=== PATIENT | male | born 1965 | race Hispanic/Latino ===

== ENCOUNTER 2020-11-06 11:30 | Emergency (ER) | payer BC, OTHER ==
[2020-11-06] MEDS ORDERED: CYCLOBENZAPRINE HCL 10 MG TABLET ONE (12:29)
== END 2020-11-06 13:03 | disposition home or self-care (01) ==
LOC: EDH 11:30
DX: M79.652 Pain in left thigh (principal); E11.9 Type 2 diabetes mellitus without complications; Z72.0 Tobacco use; X50.9XXA Other and unspecified overexertion or strenuous movements or postures, initial encounter; Y93.89 Activity, other specified; Y92.69 Other specified industrial and construction area as the place of occurrence of the external cause; Y99.8 Other external cause status

== ENCOUNTER 2021-07-14 08:36 | Emergency (ER) | payer BC ==
[~2021-07-14] VITALS: Ht 167.6 cm; Wt 87.5 kg
[2021-07-14] MEDS ORDERED: TRAM50TA4 PO (09:29)
[2021-07-14] MEDS ORDERED: IBUP-2070 PO (09:29)
[2021-07-14] MEDS ORDERED: HYDROCODONE/ACETAMINOPHEN 5/325 MG TAB PO SCH (09:30)
[2021-07-14] MEDS ORDERED: KETOROLAC 15MG/ML VIAL (15MG/ML) IM SCH (09:30)
[2021-07-14 10:43] VITALS: BP 134/74
== END 2021-07-14 10:43 | disposition home or self-care (01) ==
LOC: EDH 08:36
DX: S39.012A Strain of muscle, fascia and tendon of lower back, initial encounter (principal); E11.9 Type 2 diabetes mellitus without complications; E78.00 Pure hypercholesterolemia, unspecified; I10 Essential (primary) hypertension; Z79.1 Long term (current) use of non-steroidal anti-inflammatories (NSAID); X58.XXXA Exposure to other specified factors, initial encounter; Y93.89 Activity, other specified; Y92.89 Other specified places as the place of occurrence of the external cause; Y99.8 Other external cause status
CPT/HCPCS: 72100; 96372; 99284; J1885

== ENCOUNTER 2023-10-17 08:59 | Emergency (ER) | payer BC ==
[~2023-10-17] VITALS: Ht 167.6 cm; Wt 83.0 kg
[~2023-10-17 08:59] MED LIST: IBUP-2070 PO; TRAM50TA4 PO
[2023-10-17 09:00] VITALS: BP 175/82; PULSE 90; RESP 18; O2SAT 96
[2023-10-17] MEDS: TAMSULOSIN HCL 0.4 MG CAP.ER.24H PO ONE (11:01)
[2023-10-17 12:14] LABS: APPEARANCE,URINE CLEAR (CLEAR); BILIRUBIN,URINE NEGATIVE (NEGATIVE); COLOR,URINE YELLOW (YELLOW); GLUCOSE, URINE (UA) >=1000 mg/dL (NEGATIVE); KETONES,URINE 15 mg/dL (NEGATIVE); LEUKOCYTE ESTERASE ,URINE SMALL Leu/uL (NEGATIVE); NITRATE,URINE NEGATIVE (NEGATIVE); OCCULT BLOOD,URINE MODERATE (NEGATIVE); PH,URINE 5.5 (5.0-8.0); PROTEIN,URINE TRACE mg/dL (NEGATIVE)
[2023-10-17 12:15] LABS: ADD UA MICROSCOPIC YES
[2023-10-17 12:16] LABS: BACTERIA,URINE Few /HPF (None Seen); RBC,URINE 0-1 /HPF (0-1)
[2023-10-17 12:18] LABS: SQUAMOUS EPITHELIAL CELL,UR None Seen /HPF (0-2)
[2023-10-17] MEDS ORDERED: MACR100 PO (13:28)
[2023-10-17] MEDS ORDERED: TAMS-1 PO (13:28)
[2023-10-17] MEDS: NITROFURANTOIN MONOHYD/M-CRYST 100 MG CAPSULE PO ONE ×2 (13:30→13:31)
== END 2023-10-17 14:42 | disposition home or self-care (01) ==
LOC: EDH 08:59
DX: N30.90 Cystitis, unspecified without hematuria (principal); I10 Essential (primary) hypertension; E11.9 Type 2 diabetes mellitus without complications; E78.00 Pure hypercholesterolemia, unspecified; Z79.899 Other long term (current) drug therapy
CPT/HCPCS: 51702; 81001; 87088

== ENCOUNTER 2023-10-21 13:49 | Emergency (ER) | payer BC ==
[~2023-10-21] VITALS: Ht 167.6 cm; Wt 83.0 kg
[~2023-10-21 13:49] MED LIST changes: +MACR100 PO; +TAMS-1 PO
[2023-10-21 14:57] VITALS: BP 146/80; PULSE 99; RESP 20
== END 2023-10-21 16:57 | disposition home or self-care (01) ==
LOC: EDH 13:49
DX: E11.9 Type 2 diabetes mellitus without complications (principal); E78.00 Pure hypercholesterolemia, unspecified; I10 Essential (primary) hypertension
CPT/HCPCS: 99282

== ENCOUNTER 2023-10-22 01:41 | Emergency (ER) | payer BC ==
[~2023-10-22] VITALS: Ht 167.6 cm; Wt 82.6 kg
[2023-10-22 01:44] VITALS: BP 147/84; PULSE 115; RESP 20
[2023-10-23] MEDS ORDERED: CEFU500T67 PO (01:10)
== END 2023-10-22 02:38 | disposition home or self-care (01) ==
LOC: EDH 01:41
DX: R33.8 Other retention of urine (principal); E11.9 Type 2 diabetes mellitus without complications; E78.00 Pure hypercholesterolemia, unspecified; I10 Essential (primary) hypertension
CPT/HCPCS: 51702

== ENCOUNTER 2023-10-23 00:22 | Emergency (ER) | payer BC ==
[~2023-10-23] VITALS: Ht 167.6 cm; Wt 86.3 kg
[2023-10-23] MEDS ORDERED: CEFU500T67 PO (01:10)
[2023-10-23 01:46] VITALS: BP 145/78; PULSE 96; RESP 18; O2SAT 99
[2023-10-23] MEDS: CEFTRIAXONE 1G VIAL IVPB ONE (01:54)
[2023-10-26] MEDS ORDERED: LOSA50TA64 PO (20:02)
[2023-10-26] MEDS ORDERED: ROSU10TA28 PO (20:02)
[2023-10-26] MEDS ORDERED: TIZA-194 PO (20:02)
[2023-10-26] MEDS ORDERED: METF-444 PO (20:02)
[2023-10-26] MEDS ORDERED: GABA-529 PO (20:02)
[2023-10-26] MEDS ORDERED: TAMS-1 PO (20:02)
== END 2023-10-23 02:14 | disposition home or self-care (01) ==
LOC: EDH 00:22
DX: R31.9 Hematuria, unspecified (principal); N39.0 Urinary tract infection, site not specified; E11.9 Type 2 diabetes mellitus without complications; E78.00 Pure hypercholesterolemia, unspecified; I10 Essential (primary) hypertension; Z96.0 Presence of urogenital implants
CPT/HCPCS: 99284; 96365; J0696

== ENCOUNTER 2023-12-14 14:24 | Inpatient (IN) | payer BC ==
[~2023-12-14] VITALS: Ht 167.6 cm; Wt 76.7 kg
[~2023-12-14 14:24] MED LIST changes: +GABA-529 PO; -IBUP-2070 PO; +LOSA50TA64 PO; -MACR100 PO; +METF-444 PO; +ROSU10TA28 PO; +TIZA-194 PO; -TRAM50TA4 PO
[2023-12-14 15:23] LABS: HEMATOCRIT 25.5 % (42-54); MEAN CORPUSCULAR HEMOGLOBIN 27.7 pg (27.0-33.0); MEAN CORPUSCULAR HGB CONC 34.1 g/dL (32.0-36.0); MEAN CORPUSCULAR VOLUME 81.2 fL (79-99); PLATELET COUNT (AUTO) 459 K/uL (130-400); RED BLOOD CELL COUNT(AUTO) 3.14 MIL/uL (4.50-6.20); RED CELL DISTRIBUTION WIDTH 14.6 % (11.0-15.5); WHITE BLOOD COUNT (AUTO) 17.4 K/uL (4.8-10.8)
[2023-12-14 15:29] LABS: BASOPHILS # (AUTO) 0.06 K/uL (0.00-0.20); BASOPHILS % (AUTO) 0.3 % (0.0-5.0); EOSINOPHILS # (AUTO) 0.01 K/uL (0.00-0.70); EOSINOPHILS % (AUTO) 0.1 % (0.0-8.0); IMMATURE GRANULOCYTE ABSOLUTE 0.11 K/uL (0-1); LYMPHOCYTES # (AUTO) 1.3 K/uL (1.0-4.8); LYMPHOCYTES % (AUTO) 7.6 % (21.0-51.0); MONOCYTES # (AUTO) 0.9 K/uL (0.1-1.0); MONOCYTES % (AUTO) 4.8 % (3.0-13.0); NEUTROPHILS # (AUTO) 15.3 K/uL (1.8-7.7); NEUTROPHILS % (AUTO) 86.6 % (40.0-77.0)
[2023-12-14 15:36] LABS: CREATININE 1.3 mg/dL (0.5-1.3); POTASSIUM 3.2 mmol/L (3.5-5.1)
[2023-12-14] MEDS: 0.9%NACL 1000ML 1,000 ML IV ONE (15:49)
[2023-12-14] MEDS: MORPHINE 4 MG SYG IVP ONE (15:50)
[2023-12-14 16:04] LABS: WBC MORPHOLOGY CONSISTENT W/DIFF
[2023-12-14] MEDS: CEFTRIAXONE 2GM VIAL IVPB ONE (16:21)
[2023-12-14] MEDS: FAMOTIDINE 20MG VIAL IV ONE (16:21)
[2023-12-14] MEDS: KETOROLAC 30MG VIAL (30MG/ML) IVP ONE (16:21)
[2023-12-14] MEDS ORDERED: ONDANSETRON 4MG TABLET PO PRN (16:30)
[2023-12-14] MEDS ORDERED: VANCOMYCIN PROTOCOL PER PHARMACY IV SCH (16:30)
[2023-12-14] MEDS: CEFEPIME HCL 2 GM VIAL IVPB SCH (18:01)
[2023-12-14] MEDS: INSULIN HUMULIN R 100 UNIT/ML 3ML SQ SCH (18:21)
[2023-12-14] MEDS ORDERED: ROSU10TA28 PO (18:56)
[2023-12-14] MEDS ORDERED: TAMS-1 PO (18:56)
[2023-12-14] MEDS ORDERED: TIZA-194 PO (18:56)
[2023-12-14] MEDS ORDERED: DUTA0.5C37 PO (18:56)
[2023-12-14] MEDS ORDERED: LOSA50TA64 PO (18:56)
[2023-12-14] MEDS ORDERED: METF-446 PO (18:56)
[2023-12-14 20:15] VITALS: O2SAT 98
[2023-12-14 20:28] VITALS: BP 162/74; PULSE 99; RESP 18
[2023-12-14] MEDS: VANCOMYCIN 1.5 GM/250 ML BAG 250 ML IV SCH (23:00)
[2023-12-14] MEDS ORDERED: CEFEPIME HCL 1 GM VIAL IVPB SCH (23:00)
[2023-12-14] MEDS: ACETAMINOPHEN 325 MG TAB PO PRN (23:15)
[2023-12-15] VITALS (8 sets, daily range): BP systolic 133–159; BP diastolic 43–75; PULSE 85–104; RESP 16–18; O2SAT 98
[2023-12-15] MEDS: CEFEPIME HCL 1 GM VIAL IVPB SCH (03:13)
[2023-12-15 05:16] LABS: BASOPHILS # (AUTO) 0.06 K/uL (0.00-0.20); BASOPHILS % (AUTO) 0.3 % (0.0-5.0); EOSINOPHILS # (AUTO) 0.18 K/uL (0.00-0.70); HEMATOCRIT 23.4 % (42-54); LYMPHOCYTES # (AUTO) 2.1 K/uL (1.0-4.8); LYMPHOCYTES % (AUTO) 11.4 % (21.0-51.0); MEAN CORPUSCULAR HEMOGLOBIN 28.2 pg (27.0-33.0); MEAN CORPUSCULAR HGB CONC 34.2 g/dL (32.0-36.0); MEAN CORPUSCULAR VOLUME 82.4 fL (79-99); MONOCYTES # (AUTO) 1.3 K/uL (0.1-1.0); MONOCYTES % (AUTO) 7.2 % (3.0-13.0); NEUTROPHILS # (AUTO) 14.7 K/uL (1.8-7.7); NEUTROPHILS % (AUTO) 79.6 % (40.0-77.0); PLATELET COUNT (AUTO) 448 K/uL (130-400); RED BLOOD CELL COUNT(AUTO) 2.84 MIL/uL (4.50-6.20); RED CELL DISTRIBUTION WIDTH 14.7 % (11.0-15.5); WHITE BLOOD COUNT (AUTO) 18.5 K/uL (4.8-10.8)
[2023-12-15 05:32] LABS: ALBUMIN 1.7 g/dL (3.5-5.0); BILIRUBIN,TOTAL 0.5 mg/dL (0.2-1.0); CREATININE 1.2 mg/dL (0.5-1.3); MAGNESIUM 1.4 mg/dL (1.80-2.40); POTASSIUM 3.3 mmol/L (3.5-5.1); TOTAL PROTEIN, SERUM 6.4 g/dL (6.0-8.3)
[2023-12-15] MEDS ORDERED: POTASSIUM CHLORIDE 10% ELIXIR 20 MEQ/15 ML UDCUP PO PRN (08:30)
[2023-12-15] MEDS: KCL 20 MEQ ERTAB PO PRN (09:26)
[2023-12-15] MEDS: ENOXAPARIN SODIUM 30 MG/0.3 ML SQ SCH (09:27)
[2023-12-15] MEDS: MAGNESIUM 2GM PREMIX 50ML 50 ML IV PRN (09:28)
[2023-12-15] MEDS: MORPHINE 2 MG SYG IVP PRN (12:04)
[2023-12-15] MEDS: METFORMIN HCL 500 MG TABLET PO SCH (16:59)
[2023-12-15] MEDS ORDERED: NON-FORMULARY MEDICATION 1 EACH (Metformin HCl 1,000 MG) PO SCH (21:00)
[2023-12-15] MEDS: ATORVASTATIN 40 MG TABLET PO SCH (21:39)
[2023-12-15] MEDS: TIZANIDINE HCL 2 MG TABLET PO PRN (21:44)
[2023-12-16] VITALS (30 sets, daily range): BP systolic 101–152; BP diastolic 53–76; PULSE 69–93; RESP 16–18; O2SAT 98
[2023-12-16] MEDS: POTASSIUM CHLORIDE 20MEQ/100ML 100 ML IV PRN (08:50)
[2023-12-16] MEDS: TAMSULOSIN HCL 0.4 MG CAP.ER.24H PO SCH (09:00)
[2023-12-16] MEDS: LOSARTAN 50 MG TABLET PO SCH (09:00)
[2023-12-16] MEDS ORDERED: NON-FORMULARY MEDICATION 1 EACH (Rosuvastatin Calcium 10 MG) PO SCH (09:00)
[2023-12-16 13:00] LABS: HEMATOCRIT 25.2 % (42-54); MEAN CORPUSCULAR HEMOGLOBIN 27.6 pg (27.0-33.0); MEAN CORPUSCULAR HGB CONC 32.5 g/dL (32.0-36.0); MEAN CORPUSCULAR VOLUME 84.8 fL (79-99); PLATELET COUNT (AUTO) 446 K/uL (130-400); RED BLOOD CELL COUNT(AUTO) 2.97 MIL/uL (4.50-6.20); RED CELL DISTRIBUTION WIDTH 15.1 % (11.0-15.5); WHITE BLOOD COUNT (AUTO) 20.4 K/uL (4.8-10.8)
[2023-12-16 13:05] LABS: CREATININE 1.4 mg/dL (0.5-1.3); POTASSIUM 3.8 mmol/L (3.5-5.1)
[2023-12-16 13:51] LABS: BAND NEUTROPHILS % (MANUAL) 7 % (0-2); EOSINOPHILS % (MANUAL) 1 % (1-6); LYMPHOCYTES % (MANUAL) 8 % (22-44); MAN.DIFF COMMENT-IMPRESSION MANUAL DIFFERENTIAL; MONOCYTES % (MANUAL) 3 % (2-9); SEGMENTED NEUTROPHILS % 81 % (40-70); TOTAL CELLS COUNTED 100; WBC MORPHOLOGY HYPERSEGMENT NEUT 1+
[2023-12-16 13:52] LABS: PLATELET MORPHOLOGY COMMENT SLIGHT INCREASED
[2023-12-16] MEDS ORDERED: PHARMACY COMMUNICATION MISC SCH (17:30)
[2023-12-16] MEDS ORDERED: FENTANYL CITRATE PF 50 MCG/1 ML 2ML VIAL ONE ×2 (18:18→19:02)
[2023-12-16] MEDS ORDERED: MIDAZOLAM HCL 1 MG/ML 2ML VIAL ONE (18:18)
[2023-12-16] MEDS ORDERED: PROPOFOL 10 MG/ML 20ML VIAL IV ONE (18:18)
[2023-12-16] MEDS ORDERED: SUCCINYLCHOLINE CHLORIDE 20 MG/ML 10 ML VIAL ONE (18:25)
[2023-12-16] MEDS: MEPERIDINE-PF 25 MG/ML SYG ONE (19:26)
[2023-12-16] MEDS ORDERED: COMPOUND IV REFRIGERATED 1 EACH IVSOLN MISC PRN (23:00)
[2023-12-17] VITALS (11 sets, daily range): BP systolic 108–152; BP diastolic 53–74; PULSE 78–94; RESP 16–18; O2SAT 97
[2023-12-17 05:33] LABS: HEMATOCRIT 24.7 % (42-54); MEAN CORPUSCULAR HEMOGLOBIN 26.9 pg (27.0-33.0); MEAN CORPUSCULAR HGB CONC 31.6 g/dL (32.0-36.0); MEAN CORPUSCULAR VOLUME 85.2 fL (79-99); RED BLOOD CELL COUNT(AUTO) 2.9 MIL/uL (4.50-6.20); WHITE BLOOD COUNT (AUTO) 15.1 K/uL (4.8-10.8)
[2023-12-17 05:40] LABS: CREATININE 1.1 mg/dL (0.5-1.3); POTASSIUM 4.2 mmol/L (3.5-5.1)
[2023-12-17] MEDS: SODIUM HYPOCHLORITE 0.25% [HALF STRENGTH] 473 ML TOPICAL SOLN TP SCH (14:45)
[2023-12-18 03:00] VITALS: BP 145/77; PULSE 79; RESP 16
[2023-12-18 06:26] LABS: MAGNESIUM 1.8 mg/dL (1.80-2.40)
[2023-12-18 06:28] LABS: MEAN CORPUSCULAR HEMOGLOBIN 27.6 pg (27.0-33.0); MEAN CORPUSCULAR HGB CONC 32.4 g/dL (32.0-36.0); MEAN CORPUSCULAR VOLUME 85.3 fL (79-99); RED BLOOD CELL COUNT(AUTO) 2.93 MIL/uL (4.50-6.20); RED CELL DISTRIBUTION WIDTH 15.1 % (11.0-15.5); WHITE BLOOD COUNT (AUTO) 9.5 K/uL (4.8-10.8)
[2023-12-18 07:59] VITALS: BP 159/77; PULSE 83; RESP 14
[2023-12-18 08:00] VITALS: O2SAT 98
[2023-12-18 12:00] VITALS: BP 157/79; PULSE 82; RESP 16
[2023-12-18 16:00] VITALS: BP 148/79; PULSE 94; RESP 16
[2023-12-18 20:00] VITALS: BP 145/81; PULSE 101; RESP 18; O2SAT 98
[2023-12-19] VITALS (8 sets, daily range): BP systolic 140–163; BP diastolic 65–87; PULSE 77–94; RESP 16–20; O2SAT 98
[2023-12-19 05:11] LABS: HEMATOCRIT 23.6 % (42-54); MEAN CORPUSCULAR HEMOGLOBIN 26.9 pg (27.0-33.0); MEAN CORPUSCULAR HGB CONC 32.2 g/dL (32.0-36.0); MEAN CORPUSCULAR VOLUME 83.4 fL (79-99); RED BLOOD CELL COUNT(AUTO) 2.83 MIL/uL (4.50-6.20); RED CELL DISTRIBUTION WIDTH 14.9 % (11.0-15.5); WHITE BLOOD COUNT (AUTO) 8.8 K/uL (4.8-10.8)
[2023-12-19 05:18] LABS: MAGNESIUM 2.1 mg/dL (1.80-2.40); POTASSIUM 4.2 mmol/L (3.5-5.1)
[2023-12-19] MEDS: VANCOMYCIN 1.5 GM/250 ML BAG 250 ML IV SCH (20:58)
[2023-12-20] VITALS (7 sets, daily range): BP systolic 118–164; BP diastolic 62–89; PULSE 80–108; RESP 17–24; O2SAT 95–100
[2023-12-20 05:22] LABS: HEMATOCRIT 23.5 % (42-54); MEAN CORPUSCULAR HEMOGLOBIN 27.1 pg (27.0-33.0); MEAN CORPUSCULAR HGB CONC 32.3 g/dL (32.0-36.0); MEAN CORPUSCULAR VOLUME 83.9 fL (79-99); RED BLOOD CELL COUNT(AUTO) 2.8 MIL/uL (4.50-6.20); RED CELL DISTRIBUTION WIDTH 14.6 % (11.0-15.5); WHITE BLOOD COUNT (AUTO) 10.7 K/uL (4.8-10.8)
[2023-12-20 06:02] LABS: CREATININE 0.9 mg/dL (0.5-1.3); MAGNESIUM 1.7 mg/dL (1.80-2.40); POTASSIUM 3.8 mmol/L (3.5-5.1)
[2023-12-20] MEDS: MORPHINE 2 MG SYG IVP PRN (20:38)
[2023-12-21 04:00] VITALS: BP 148/77; PULSE 88; RESP 19
[2023-12-21 06:04] LABS: HEMATOCRIT 24.7 % (42-54); MEAN CORPUSCULAR HEMOGLOBIN 27.1 pg (27.0-33.0); MEAN CORPUSCULAR VOLUME 84.6 fL (79-99); RED BLOOD CELL COUNT(AUTO) 2.92 MIL/uL (4.50-6.20); WHITE BLOOD COUNT (AUTO) 8.2 K/uL (4.8-10.8)
[2023-12-21 06:34] LABS: MAGNESIUM 2.2 mg/dL (1.80-2.40)
[2023-12-21 08:00] VITALS: BP 157/76; PULSE 76; RESP 17
[2023-12-21 12:00] VITALS: BP 163/62; PULSE 106; RESP 18; O2SAT 99
[2023-12-21 16:00] VITALS: BP 148/73; PULSE 90; RESP 18
[2023-12-21 19:52] VITALS: O2SAT 100
[2023-12-21 20:00] VITALS: BP 157/77; PULSE 100; RESP 18
[2023-12-22] VITALS (30 sets, daily range): BP systolic 116–159; BP diastolic 60–80; PULSE 72–102; RESP 14–19; O2SAT 95–96
[2023-12-22 06:52] LABS: BASOPHILS # (AUTO) 0.04 K/uL (0.00-0.20); BASOPHILS % (AUTO) 0.4 % (0.0-5.0); EOSINOPHILS # (AUTO) 0.32 K/uL (0.00-0.70); HEMATOCRIT 25.3 % (42-54); IMMATURE GRANULOCYTE ABSOLUTE 0.05 K/uL (0-1); LYMPHOCYTES % (AUTO) 19.1 % (21.0-51.0); MEAN CORPUSCULAR HEMOGLOBIN 27.1 pg (27.0-33.0); MEAN CORPUSCULAR HGB CONC 32.8 g/dL (32.0-36.0); MEAN CORPUSCULAR VOLUME 82.7 fL (79-99); MONOCYTES # (AUTO) 0.9 K/uL (0.1-1.0); MONOCYTES % (AUTO) 8.5 % (3.0-13.0); NEUTROPHILS # (AUTO) 7.3 K/uL (1.8-7.7); NEUTROPHILS % (AUTO) 68.5 % (40.0-77.0); PLATELET COUNT (AUTO) 466 K/uL (130-400); RED BLOOD CELL COUNT(AUTO) 3.06 MIL/uL (4.50-6.20); RED CELL DISTRIBUTION WIDTH 15.3 % (11.0-15.5); WHITE BLOOD COUNT (AUTO) 10.7 K/uL (4.8-10.8)
[2023-12-22 07:07] LABS: MAGNESIUM 1.7 mg/dL (1.80-2.40); POTASSIUM 3.9 mmol/L (3.5-5.1)
[2023-12-22] MEDS ORDERED: PROPOFOL 10 MG/ML 20ML VIAL IV ONE (11:43)
[2023-12-22] MEDS ORDERED: ROCURONIUM BROMIDE 10MG/1ML 5ML VL ONE (11:43)
[2023-12-22] MEDS ORDERED: MIDAZOLAM HCL 1 MG/ML 2ML VIAL ONE (11:43)
[2023-12-22] MEDS ORDERED: ONDANSETRON 4MG INJ ONE ×2 (11:43→12:57)
[2023-12-22] MEDS ORDERED: FENTANYL CITRATE PF 50 MCG/1 ML 2ML VIAL ONE ×3 (11:45→13:07)
[2023-12-22] MEDS ORDERED: PHENYLEPHRINE HCL 10 MG/ML 1ML VIAL IV ONE (11:50)
[2023-12-22] MEDS ORDERED: ROPIVACAINE 0.5% 5MG/ML 30ML ONE (12:16)
[2023-12-22] MEDS ORDERED: NEOSTIGMINE METHYLSULFATE 1MG/ML IV ONE (13:02)
[2023-12-22] MEDS: CEFEPIME HCL 1 GM VIAL IVPB SCH (19:47)
[2023-12-23] VITALS (7 sets, daily range): BP systolic 115–181; BP diastolic 59–76; PULSE 74–82; RESP 16–20; O2SAT 96–100
[2023-12-23 05:14] LABS: HEMATOCRIT 27.7 % (42-54); MEAN CORPUSCULAR HEMOGLOBIN 26.8 pg (27.0-33.0); MEAN CORPUSCULAR VOLUME 86.3 fL (79-99); RED BLOOD CELL COUNT(AUTO) 3.21 MIL/uL (4.50-6.20); RED CELL DISTRIBUTION WIDTH 15.4 % (11.0-15.5); WHITE BLOOD COUNT (AUTO) 11.8 K/uL (4.8-10.8)
[2023-12-23 05:28] LABS: CREATININE 1.1 mg/dL (0.5-1.3); MAGNESIUM 2.7 mg/dL (1.80-2.40); POTASSIUM 4.7 mmol/L (3.5-5.1)
[2023-12-24] VITALS (7 sets, daily range): BP systolic 114–142; BP diastolic 62–74; PULSE 79–109; RESP 14–19; O2SAT 99
[2023-12-24 04:14] LABS: BASOPHILS # (AUTO) 0.04 K/uL (0.00-0.20); BASOPHILS % (AUTO) 0.4 % (0.0-5.0); EOSINOPHILS # (AUTO) 0.29 K/uL (0.00-0.70); EOSINOPHILS % (AUTO) 2.9 % (0.0-8.0); IMMATURE GRANULOCYTE ABSOLUTE 0.09 K/uL (0-1); LYMPHOCYTES # (AUTO) 2.3 K/uL (1.0-4.8); LYMPHOCYTES % (AUTO) 22.7 % (21.0-51.0); MEAN CORPUSCULAR HEMOGLOBIN 27.3 pg (27.0-33.0); MEAN CORPUSCULAR HGB CONC 32.2 g/dL (32.0-36.0); MEAN CORPUSCULAR VOLUME 84.6 fL (79-99); MONOCYTES # (AUTO) 0.6 K/uL (0.1-1.0); MONOCYTES % (AUTO) 5.9 % (3.0-13.0); NEUTROPHILS # (AUTO) 6.8 K/uL (1.8-7.7); NEUTROPHILS % (AUTO) 67.2 % (40.0-77.0); PLATELET COUNT (AUTO) 497 K/uL (130-400); RED BLOOD CELL COUNT(AUTO) 3.19 MIL/uL (4.50-6.20); RED CELL DISTRIBUTION WIDTH 15.5 % (11.0-15.5)
[2023-12-24 04:30] LABS: CREATININE 1.2 mg/dL (0.5-1.3); MAGNESIUM 2.1 mg/dL (1.80-2.40); POTASSIUM 3.9 mmol/L (3.5-5.1)
[2023-12-24] MEDS: HYDROMORPHONE 0.5 MG SYG (0.5MG/0.5ML) IVP ONE (12:30)
[2023-12-24] MEDS: VANCOMYCIN 1G/250ML KIT 250 ML IV SCH (20:47)
[2023-12-25 03:48] VITALS: BP 123/68; PULSE 80; RESP 20
[2023-12-25 04:14] LABS: BASOPHILS # (AUTO) 0.07 K/uL (0.00-0.20); BASOPHILS % (AUTO) 0.8 % (0.0-5.0); EOSINOPHILS # (AUTO) 0.37 K/uL (0.00-0.70); EOSINOPHILS % (AUTO) 4.2 % (0.0-8.0); IMMATURE GRANULOCYTE ABSOLUTE 0.04 K/uL (0-1); LYMPHOCYTES # (AUTO) 2.8 K/uL (1.0-4.8); LYMPHOCYTES % (AUTO) 31.2 % (21.0-51.0); MEAN CORPUSCULAR HEMOGLOBIN 27.3 pg (27.0-33.0); MEAN CORPUSCULAR HGB CONC 32.4 g/dL (32.0-36.0); MEAN CORPUSCULAR VOLUME 84.2 fL (79-99); MONOCYTES # (AUTO) 0.5 K/uL (0.1-1.0); MONOCYTES % (AUTO) 6.1 % (3.0-13.0); NEUTROPHILS # (AUTO) 5.1 K/uL (1.8-7.7); NEUTROPHILS % (AUTO) 57.2 % (40.0-77.0); PLATELET COUNT (AUTO) 478 K/uL (130-400); RED BLOOD CELL COUNT(AUTO) 2.97 MIL/uL (4.50-6.20); RED CELL DISTRIBUTION WIDTH 15.8 % (11.0-15.5); WHITE BLOOD COUNT (AUTO) 8.8 K/uL (4.8-10.8)
[2023-12-25 04:18] LABS: CREATININE 1.4 mg/dL (0.5-1.3); MAGNESIUM 1.9 mg/dL (1.80-2.40); POTASSIUM 4.4 mmol/L (3.5-5.1)
[2023-12-25 12:00] VITALS: BP 119/64; PULSE 106; RESP 16
[2023-12-25] MEDS: HYDROMORPHONE 0.5 MG SYG (0.5MG/0.5ML) IVP ONE (13:34)
[2023-12-25 16:00] VITALS: BP 141/65; PULSE 85; RESP 16
[2023-12-25 20:00] VITALS: BP 149/63; PULSE 95; RESP 20
[2023-12-25 20:30] VITALS: O2SAT 100
[2023-12-26] VITALS (8 sets, daily range): BP systolic 99–141; BP diastolic 57–74; PULSE 75–102; RESP 18–20; O2SAT 98
[2023-12-27] VITALS (8 sets, daily range): BP systolic 100–153; BP diastolic 57–77; PULSE 80–100; RESP 17–22; O2SAT 98–100
[2023-12-27 05:32] LABS: BASOPHILS # (AUTO) 0.08 K/uL (0.00-0.20); BASOPHILS % (AUTO) 0.8 % (0.0-5.0); EOSINOPHILS # (AUTO) 0.47 K/uL (0.00-0.70); EOSINOPHILS % (AUTO) 4.9 % (0.0-8.0); HEMATOCRIT 26.4 % (42-54); IMMATURE GRANULOCYTE ABSOLUTE 0.06 K/uL (0-1); LYMPHOCYTES # (AUTO) 2.3 K/uL (1.0-4.8); LYMPHOCYTES % (AUTO) 24.1 % (21.0-51.0); MONOCYTES # (AUTO) 0.6 K/uL (0.1-1.0); MONOCYTES % (AUTO) 6.5 % (3.0-13.0); NEUTROPHILS # (AUTO) 6.1 K/uL (1.8-7.7); NEUTROPHILS % (AUTO) 63.1 % (40.0-77.0); PLATELET COUNT (AUTO) 529 K/uL (130-400); RED BLOOD CELL COUNT(AUTO) 3.22 MIL/uL (4.50-6.20); RED CELL DISTRIBUTION WIDTH 15.9 % (11.0-15.5); WHITE BLOOD COUNT (AUTO) 9.6 K/uL (4.8-10.8)
[2023-12-27 05:52] LABS: ALBUMIN 2.4 g/dL (3.5-5.0); BILIRUBIN,TOTAL 0.4 mg/dL (0.2-1.0); CREATININE 1.6 mg/dL (0.5-1.3); MAGNESIUM 2.2 mg/dL (1.80-2.40); TOTAL PROTEIN, SERUM 7.1 g/dL (6.0-8.3)
[2023-12-28] VITALS: BP 140/63; PULSE 94; RESP 18
[2023-12-28 04:00] VITALS: BP 131/64; PULSE 92; RESP 18
[2023-12-28 08:00] VITALS: BP 126/72; PULSE 90; RESP 16; O2SAT 97
[2023-12-28 11:58] VITALS: BP_SYST 104; BP_SYST 174; BP_DIAS 111; BP_DIAS 71; PULSE 87; RESP 17
[2023-12-28] MEDS ORDERED: CEFEPIME HCL 1 GM VIAL IVPB SCH (12:30)
[2023-12-28 14:08] LABS: BASOPHILS # (AUTO) 0.09 K/uL (0.00-0.20); BASOPHILS % (AUTO) 0.9 % (0.0-5.0); EOSINOPHILS # (AUTO) 0.34 K/uL (0.00-0.70); EOSINOPHILS % (AUTO) 3.4 % (0.0-8.0); IMMATURE GRANULOCYTE ABSOLUTE 0.07 K/uL (0-1); LYMPHOCYTES # (AUTO) 1.7 K/uL (1.0-4.8); LYMPHOCYTES % (AUTO) 17.3 % (21.0-51.0); MEAN CORPUSCULAR HEMOGLOBIN 26.6 pg (27.0-33.0); MEAN CORPUSCULAR HGB CONC 31.6 g/dL (32.0-36.0); MEAN CORPUSCULAR VOLUME 84.2 fL (79-99); MONOCYTES # (AUTO) 0.5 K/uL (0.1-1.0); NEUTROPHILS # (AUTO) 7.3 K/uL (1.8-7.7); NEUTROPHILS % (AUTO) 72.7 % (40.0-77.0); PLATELET COUNT (AUTO) 448 K/uL (130-400); RED CELL DISTRIBUTION WIDTH 16.4 % (11.0-15.5); WHITE BLOOD COUNT (AUTO) 10.1 K/uL (4.8-10.8)
[2023-12-28 14:16] LABS: MAGNESIUM 2.2 mg/dL (1.80-2.40); POTASSIUM 4.8 mmol/L (3.5-5.1)
[2023-12-28] MEDS: CEFEPIME HCL 1 GM VIAL IVPB SCH (14:40)
[2023-12-28 16:00] VITALS: BP 101/61; PULSE 92; RESP 17
[2023-12-28 20:00] VITALS: BP 136/72; PULSE 97; RESP 16; O2SAT 99
[2023-12-29] VITALS: BP 130/71; PULSE 96; RESP 17
[2023-12-29 04:00] VITALS: BP 125/81; PULSE 98; RESP 17
[2023-12-29 04:45] LABS: BASOPHILS % (AUTO) 0.9 % (0.0-5.0); EOSINOPHILS # (AUTO) 0.29 K/uL (0.00-0.70); EOSINOPHILS % (AUTO) 2.5 % (0.0-8.0); HEMATOCRIT 28.5 % (42-54); IMMATURE GRANULOCYTE ABSOLUTE 0.08 K/uL (0-1); LYMPHOCYTES # (AUTO) 2.1 K/uL (1.0-4.8); LYMPHOCYTES % (AUTO) 18.5 % (21.0-51.0); MEAN CORPUSCULAR HEMOGLOBIN 26.6 pg (27.0-33.0); MEAN CORPUSCULAR VOLUME 80.7 fL (79-99); MONOCYTES # (AUTO) 0.7 K/uL (0.1-1.0); MONOCYTES % (AUTO) 6.3 % (3.0-13.0); NEUTROPHILS # (AUTO) 8.3 K/uL (1.8-7.7); NEUTROPHILS % (AUTO) 71.1 % (40.0-77.0); PLATELET COUNT (AUTO) 515 K/uL (130-400); RED BLOOD CELL COUNT(AUTO) 3.53 MIL/uL (4.50-6.20); RED CELL DISTRIBUTION WIDTH 16.3 % (11.0-15.5); WHITE BLOOD COUNT (AUTO) 11.6 K/uL (4.8-10.8)
[2023-12-29 05:24] LABS: CREATININE 5.2 mg/dL (0.5-1.3)
[2023-12-29 08:00] VITALS: BP 119/68; PULSE 106; RESP 18; O2SAT 98
[2023-12-29 12:00] VITALS: BP 109/68; PULSE 103; RESP 18
[2023-12-29] MEDS: ONDANSETRON 4MG INJ IVP PRN (14:03)
[2023-12-29] MEDS: FUROSEMIDE 40MG VIAL IV STA (14:03)
[2023-12-29 16:00] VITALS: BP 96/57; PULSE 89; RESP 18
[2023-12-29 20:00] VITALS: BP 113/66; PULSE 93; RESP 19; O2SAT 98
[2023-12-29] MEDS ORDERED: VANCOMYCIN 1G/250ML KIT 250 ML IV SCH (21:00)
[2023-12-30] VITALS (24 sets, daily range): BP systolic 103–151; BP diastolic 61–88; PULSE 72–120; RESP 16–18; TEMP 97.7–98; O2SAT 99–100
[2023-12-30 05:28] LABS: EOSINOPHILS # (AUTO) 0.33 K/uL (0.00-0.70); EOSINOPHILS % (AUTO) 3.4 % (0.0-8.0); HEMATOCRIT 30.1 % (42-54); IMMATURE GRANULOCYTE ABSOLUTE 0.07 K/uL (0-1); LYMPHOCYTES % (AUTO) 21.3 % (21.0-51.0); MEAN CORPUSCULAR HEMOGLOBIN 27.3 pg (27.0-33.0); MEAN CORPUSCULAR HGB CONC 32.6 g/dL (32.0-36.0); MEAN CORPUSCULAR VOLUME 83.8 fL (79-99); MONOCYTES # (AUTO) 0.7 K/uL (0.1-1.0); MONOCYTES % (AUTO) 7.4 % (3.0-13.0); NEUTROPHILS # (AUTO) 6.3 K/uL (1.8-7.7); NEUTROPHILS % (AUTO) 66.2 % (40.0-77.0); PLATELET COUNT (AUTO) 500 K/uL (130-400); RED BLOOD CELL COUNT(AUTO) 3.59 MIL/uL (4.50-6.20); RED CELL DISTRIBUTION WIDTH 16.2 % (11.0-15.5); WHITE BLOOD COUNT (AUTO) 9.6 K/uL (4.8-10.8)
[2023-12-30 05:36] LABS: INR 0.98 (0.85-1.15); PROTHROMBIN TIME 11.6 SEC (9.6-11.6)
[2023-12-30 05:38] LABS: PARTIAL THROMBOPLASTIN TIME 28.1 SEC (26.3-35.5)
[2023-12-30 05:46] LABS: ALBUMIN 2.6 g/dL (3.5-5.0); BILIRUBIN,TOTAL 0.5 mg/dL (0.2-1.0); CREATININE 6.9 mg/dL (0.5-1.3); MAGNESIUM 2.2 mg/dL (1.80-2.40); TOTAL PROTEIN, SERUM 7.8 g/dL (6.0-8.3)
[2023-12-30] MEDS ORDERED: HEPARIN 1,000 UNIT VIAL ONE (14:00)
[2023-12-30 16:44] LABS: HEMATOCRIT 33.2 % (42-54)
[2023-12-30 17:04] LABS: ALBUMIN 3.1 g/dL (3.5-5.0)
[2023-12-30 17:13] LABS: % IRON SATURATION 13.4 % (30-44)
[2023-12-30 17:36] LABS: HIV 1&2 ANTIBODY Non-Reactive (Negative); HIV-1 p24 Antigen Non-Reactive (Negative)
[2023-12-31] VITALS (21 sets, daily range): BP systolic 92–138; BP diastolic 55–91; PULSE 90–111; RESP 16–18; TEMP 98.1–98.3; O2SAT 99
[2023-12-31 05:17] LABS: EOSINOPHILS # (AUTO) 0.12 K/uL (0.00-0.70); EOSINOPHILS % (AUTO) 1.2 % (0.0-8.0); HEMATOCRIT 28.4 % (42-54); IMMATURE GRANULOCYTE ABSOLUTE 0.05 K/uL (0-1); LYMPHOCYTES # (AUTO) 1.9 K/uL (1.0-4.8); LYMPHOCYTES % (AUTO) 19.6 % (21.0-51.0); MEAN CORPUSCULAR HEMOGLOBIN 26.9 pg (27.0-33.0); MEAN CORPUSCULAR HGB CONC 33.1 g/dL (32.0-36.0); MEAN CORPUSCULAR VOLUME 81.4 fL (79-99); MONOCYTES # (AUTO) 0.7 K/uL (0.1-1.0); MONOCYTES % (AUTO) 7.5 % (3.0-13.0); NEUTROPHILS % (AUTO) 70.2 % (40.0-77.0); PLATELET COUNT (AUTO) 465 K/uL (130-400); RED BLOOD CELL COUNT(AUTO) 3.49 MIL/uL (4.50-6.20); RED CELL DISTRIBUTION WIDTH 16.6 % (11.0-15.5); WHITE BLOOD COUNT (AUTO) 9.9 K/uL (4.8-10.8)
[2023-12-31 05:46] LABS: ALBUMIN 2.6 g/dL (3.5-5.0); BILIRUBIN,TOTAL 0.6 mg/dL (0.2-1.0); CREATININE 6.2 mg/dL (0.5-1.3); MAGNESIUM 2.2 mg/dL (1.80-2.40); POTASSIUM 4.6 mmol/L (3.5-5.1); TOTAL PROTEIN, SERUM 7.7 g/dL (6.0-8.3)
[2023-12-31] MEDS: ALBUMIN (HUMAN) 25% 100 ML IV PRN (11:32)
[2023-12-31 17:04] LABS: HEPATITIS B CORE AB TOTAL Non-Reactive (Nonreactive); HEPATITIS B SURFACE ANTIBODY Negative (Reactive); HEPATITIS B SURFACE ANTIGEN Non-Reactive (Nonreactive)
[2024-01-01] VITALS (22 sets, daily range): BP systolic 99–143; BP diastolic 56–80; PULSE 80–102; RESP 12–19; TEMP 97.7–97.9; O2SAT 96–99
[2024-01-01 06:40] LABS: HEMATOCRIT 28.3 % (42-54); MEAN CORPUSCULAR HEMOGLOBIN 27.2 pg (27.0-33.0); MEAN CORPUSCULAR HGB CONC 32.5 g/dL (32.0-36.0); MEAN CORPUSCULAR VOLUME 83.7 fL (79-99); RED BLOOD CELL COUNT(AUTO) 3.38 MIL/uL (4.50-6.20)
[2024-01-01 07:04] LABS: MAGNESIUM 2.3 mg/dL (1.80-2.40); POTASSIUM 4.5 mmol/L (3.5-5.1)
[2024-01-01] MEDS: MIDODRINE HCL 5 MG TABLET PO SCH (21:55)
[2024-01-02] VITALS (8 sets, daily range): BP systolic 92–128; BP diastolic 54–72; PULSE 72–99; RESP 17–20; O2SAT 96–99
[2024-01-02 04:06] LABS: BASOPHILS # (AUTO) 0.11 K/uL (0.00-0.20); EOSINOPHILS # (AUTO) 0.42 K/uL (0.00-0.70); EOSINOPHILS % (AUTO) 3.8 % (0.0-8.0); HEMATOCRIT 27.9 % (42-54); IMMATURE GRANULOCYTE ABSOLUTE 0.06 K/uL (0-1); LYMPHOCYTES # (AUTO) 2.5 K/uL (1.0-4.8); LYMPHOCYTES % (AUTO) 22.6 % (21.0-51.0); MEAN CORPUSCULAR HEMOGLOBIN 26.4 pg (27.0-33.0); MEAN CORPUSCULAR HGB CONC 31.9 g/dL (32.0-36.0); MEAN CORPUSCULAR VOLUME 82.8 fL (79-99); MONOCYTES # (AUTO) 0.9 K/uL (0.1-1.0); MONOCYTES % (AUTO) 7.9 % (3.0-13.0); NEUTROPHILS % (AUTO) 64.2 % (40.0-77.0); PLATELET COUNT (AUTO) 376 K/uL (130-400); RED BLOOD CELL COUNT(AUTO) 3.37 MIL/uL (4.50-6.20); RED CELL DISTRIBUTION WIDTH 16.8 % (11.0-15.5)
[2024-01-02 04:18] LABS: CREATININE 3.9 mg/dL (0.5-1.3); MAGNESIUM 1.9 mg/dL (1.80-2.40); POTASSIUM 3.6 mmol/L (3.5-5.1)
[2024-01-03] VITALS (7 sets, daily range): BP systolic 120–134; BP diastolic 63–73; PULSE 74–89; RESP 18–20; O2SAT 97–99
[2024-01-03 04:20] LABS: BASOPHILS # (AUTO) 0.11 K/uL (0.00-0.20); EOSINOPHILS # (AUTO) 0.64 K/uL (0.00-0.70); EOSINOPHILS % (AUTO) 5.9 % (0.0-8.0); HEMATOCRIT 28.1 % (42-54); IMMATURE GRANULOCYTE ABSOLUTE 0.06 K/uL (0-1); LYMPHOCYTES # (AUTO) 3.1 K/uL (1.0-4.8); LYMPHOCYTES % (AUTO) 29.1 % (21.0-51.0); MEAN CORPUSCULAR HEMOGLOBIN 27.2 pg (27.0-33.0); MEAN CORPUSCULAR HGB CONC 33.1 g/dL (32.0-36.0); MEAN CORPUSCULAR VOLUME 82.2 fL (79-99); MONOCYTES # (AUTO) 0.9 K/uL (0.1-1.0); MONOCYTES % (AUTO) 8.6 % (3.0-13.0); NEUTROPHILS # (AUTO) 5.9 K/uL (1.8-7.7); NEUTROPHILS % (AUTO) 54.8 % (40.0-77.0); PLATELET COUNT (AUTO) 332 K/uL (130-400); RED BLOOD CELL COUNT(AUTO) 3.42 MIL/uL (4.50-6.20); RED CELL DISTRIBUTION WIDTH 16.6 % (11.0-15.5); WHITE BLOOD COUNT (AUTO) 10.8 K/uL (4.8-10.8)
[2024-01-03 04:29] LABS: CREATININE 6.3 mg/dL (0.5-1.3); MAGNESIUM 1.9 mg/dL (1.80-2.40); POTASSIUM 4.4 mmol/L (3.5-5.1)
[2024-01-04] VITALS (23 sets, daily range): BP systolic 95–157; BP diastolic 56–85; PULSE 77–115; RESP 16–20; TEMP 97.8–98; O2SAT 95–97
[2024-01-04 08:53] LABS: BASOPHILS # (AUTO) 0.09 K/uL (0.00-0.20); BASOPHILS % (AUTO) 1.1 % (0.0-5.0); EOSINOPHILS # (AUTO) 0.59 K/uL (0.00-0.70); EOSINOPHILS % (AUTO) 7.1 % (0.0-8.0); IMMATURE GRANULOCYTE ABSOLUTE 0.04 K/uL (0-1); LYMPHOCYTES # (AUTO) 1.9 K/uL (1.0-4.8); LYMPHOCYTES % (AUTO) 23.2 % (21.0-51.0); MEAN CORPUSCULAR HEMOGLOBIN 26.9 pg (27.0-33.0); MEAN CORPUSCULAR HGB CONC 33.6 g/dL (32.0-36.0); MONOCYTES # (AUTO) 0.7 K/uL (0.1-1.0); MONOCYTES % (AUTO) 8.1 % (3.0-13.0); PLATELET COUNT (AUTO) 298 K/uL (130-400); RED CELL DISTRIBUTION WIDTH 16.6 % (11.0-15.5); WHITE BLOOD COUNT (AUTO) 8.3 K/uL (4.8-10.8)
[2024-01-04 09:14] LABS: CREATININE 7.9 mg/dL (0.5-1.3); MAGNESIUM 1.8 mg/dL (1.80-2.40); PHOSPHORUS 7.6 mg/dL (2.5-4.9)
[2024-01-04] MEDS: SODIUM CHLORIDE 1,000 MG TAB PO ONE (12:58)
[2024-01-05 04:00] VITALS: BP 127/77; PULSE 90; RESP 18
[2024-01-05 06:19] LABS: BASOPHILS % (AUTO) 1.3 % (0.0-5.0); EOSINOPHILS # (AUTO) 0.51 K/uL (0.00-0.70); EOSINOPHILS % (AUTO) 6.8 % (0.0-8.0); IMMATURE GRANULOCYTE ABSOLUTE 0.04 K/uL (0-1); LYMPHOCYTES # (AUTO) 1.9 K/uL (1.0-4.8); LYMPHOCYTES % (AUTO) 25.4 % (21.0-51.0); MEAN CORPUSCULAR HEMOGLOBIN 26.7 pg (27.0-33.0); MEAN CORPUSCULAR HGB CONC 33.1 g/dL (32.0-36.0); MEAN CORPUSCULAR VOLUME 80.8 fL (79-99); MONOCYTES # (AUTO) 0.7 K/uL (0.1-1.0); MONOCYTES % (AUTO) 9.2 % (3.0-13.0); NEUTROPHILS # (AUTO) 4.3 K/uL (1.8-7.7); NEUTROPHILS % (AUTO) 56.8 % (40.0-77.0); PLATELET COUNT (AUTO) 256 K/uL (130-400); RED BLOOD CELL COUNT(AUTO) 3.59 MIL/uL (4.50-6.20); RED CELL DISTRIBUTION WIDTH 16.3 % (11.0-15.5); WHITE BLOOD COUNT (AUTO) 7.5 K/uL (4.8-10.8)
[2024-01-05 06:31] LABS: CREATININE 5.2 mg/dL (0.5-1.3); MAGNESIUM 1.9 mg/dL (1.80-2.40); POTASSIUM 3.6 mmol/L (3.5-5.1)
[2024-01-05 08:00] VITALS: BP 120/72; PULSE 95; RESP 18
[2024-01-05 11:57] VITALS: BP 112/67; PULSE 93; RESP 20
[2024-01-05 13:45] VITALS: O2SAT 100
[2024-01-05 16:00] VITALS: BP 114/84; PULSE 100; RESP 20
[2024-01-05 20:26] VITALS: BP 121/70; PULSE 84; RESP 18
== END 2024-01-05 20:58 | DRG 853 ==
LOC: EDH 14:24 → EDHIP 16:28 → 3AH 20:00
PROVIDERS: ADMIT Internal Medicine Infectious Disease; ATTEND Internal Medicine Infectious Disease
PROC: 0JBB3ZZ Excision of Perineum Subcutaneous Tissue and Fascia, Percutaneous Approach (ICD-10-PCS; principal; 2023-12-16 18:20)
PROC: 0D1B4Z4 Bypass Ileum to Cutaneous, Percutaneous Endoscopic Approach (ICD-10-PCS; 2023-12-22)
PROC: 0JBB3ZZ Excision of Perineum Subcutaneous Tissue and Fascia, Percutaneous Approach (ICD-10-PCS; 2023-12-25)
PROC: 0JH63XZ Insertion of Tunneled Vascular Access Device into Chest Subcutaneous Tissue and Fascia, Percutaneous Approach (ICD-10-PCS; 2023-12-30)
PROC: 02H633Z Insertion of Infusion Device into Right Atrium, Percutaneous Approach (ICD-10-PCS; 2023-12-30)
PROC: B5181ZA Fluoroscopy of Superior Vena Cava using Low Osmolar Contrast, Guidance (ICD-10-PCS; 2023-12-30)
PROC: B548ZZA Ultrasonography of Superior Vena Cava, Guidance (ICD-10-PCS; 2023-12-30)
PROC: 5A1D70Z Performance of Urinary Filtration, Intermittent, Less than 6 Hours Per Day (ICD-10-PCS; 2023-12-30)
PROC: 5A1D70Z Performance of Urinary Filtration, Intermittent, Less than 6 Hours Per Day (ICD-10-PCS; 2023-12-31)
PROC: 5A1D70Z Performance of Urinary Filtration, Intermittent, Less than 6 Hours Per Day (ICD-10-PCS; 2024-01-01)
PROC: 5A1D70Z Performance of Urinary Filtration, Intermittent, Less than 6 Hours Per Day (ICD-10-PCS; 2024-01-04)
DX: A41.50 Gram-negative sepsis, unspecified (principal); M72.6 Necrotizing fasciitis; L02.215 Cutaneous abscess of perineum; L02.31 Cutaneous abscess of buttock; K61.2 Anorectal abscess; N17.9 Acute kidney failure, unspecified; N39.0 Urinary tract infection, site not specified; L02.92 Furuncle, unspecified; D64.9 Anemia, unspecified; B96.20 Unspecified Escherichia coli [E. coli] as the cause of diseases classified elsewhere; E11.22 Type 2 diabetes mellitus with diabetic chronic kidney disease; N40.1 Benign prostatic hyperplasia with lower urinary tract symptoms; R31.0 Gross hematuria; I12.9 Hypertensive chronic kidney disease with stage 1 through stage 4 chronic kidney disease, or unspecified chronic kidney disease; E78.00 Pure hypercholesterolemia, unspecified; E87.6 Hypokalemia; N28.89 Other specified disorders of kidney and ureter; E11.65 Type 2 diabetes mellitus with hyperglycemia; E66.9 Obesity, unspecified; N18.9 Chronic kidney disease, unspecified; Z83.3 Family history of diabetes mellitus; Z93.3 Colostomy status; Z68.27 Body mass index [BMI] 27.0-27.9, adult
CPT/HCPCS: 36415; 36558; 71045; 74176; 76770; 76857; 77001; 80048; 80053; 80061; 80202; 82040; 82140; 82306; 82565; 82948; 83036; 83540; 83550; 83605; 83735; 84100; 84520; 85014; 85018; 85025; 85027; 85610; 85730; 86701; 86704; 86706; 87040; 87070; 87076; 87077; 87186; 87340; 87390; 90935; 93005; 96375; A4606; C1750; G0378; J0330; J0692; J0696; J1170; J1644; J1650; J1815; J1885; J1940; J2175; J2250; J2270; J2371; J2405; J2704; J2710; J2795; J3010; J3370; J3475; J3480; J3490; J7030; J7120; P9046; A4216; A4222; A4223; A4600; A4649; A4930; A6446; C1894

== ENCOUNTER 2024-02-23 11:33 | Emergency (ER) | payer BC ==
[~2024-02-23] VITALS: Ht 167.6 cm; Wt 70.3 kg
[~2024-02-23 11:33] MED LIST changes: +DUTA0.5C37 PO; -GABA-529 PO; -LOSA50TA64 PO; -METF-444 PO; -ROSU10TA28 PO; +ROSU10TA72 PO; -TIZA-194 PO
[2024-02-23 11:34] VITALS: BP 133/67; PULSE 94; RESP 14
== END 2024-02-23 13:55 | disposition home or self-care (01) ==
LOC: EDH 11:33
DX: E11.9 Type 2 diabetes mellitus without complications (principal); I10 Essential (primary) hypertension; Z79.899 Other long term (current) drug therapy; Z43.3 Encounter for attention to colostomy; E78.00 Pure hypercholesterolemia, unspecified
CPT/HCPCS: 99281

== ENCOUNTER 2024-02-28 23:41 | Emergency (ER) | payer BC ==
[~2024-02-28] VITALS: Ht 167.6 cm; Wt 67.1 kg
[2024-02-29 00:53] LABS: APPEARANCE,URINE TURBID (CLEAR); BACTERIA,URINE MOD /HPF (None Seen); BILIRUBIN,URINE NEGATIVE (NEGATIVE); COLOR,URINE DARK-BROWN (YELLOW); GLUCOSE, URINE (UA) NEGATIVE (NEGATIVE); HYALINE CASTS, URINE 26-50 /LPF (0-1 /LPF); KETONES,URINE 5 mg/dL (NEGATIVE); LEUKOCYTE ESTERASE ,URINE 500 Leu/uL (NEGATIVE); MUCUS,URINE RARE LPF (None Seen); NITRATE,URINE NEGATIVE (NEGATIVE); OCCULT BLOOD,URINE LARGE (NEGATIVE); PH,URINE 5.5 (5.0-8.0); PROTEIN,URINE 300 mg/dL (NEGATIVE); RBC,URINE TNTC /HPF (0-1); SQUAMOUS EPITHELIAL CELL,UR MOD /HPF (0-2); WBC CLUMP MANY /HPF (0-1); WBC,URINE TNTC /HPF (0-1); YEAST,URINE BUDDING MANY /HPF (None Seen)
[2024-02-29] MEDS ORDERED: CEPH500B PO (01:03)
[2024-02-29 01:13] VITALS: BP 120/65; PULSE 98; RESP 18; O2SAT 97
[2024-03-01] MEDS ORDERED: [UNRECOGNIZED DRUG - CODE] MC (12:09)
== END 2024-02-29 01:13 | disposition home or self-care (01) ==
LOC: EDH 23:41
DX: N39.0 Urinary tract infection, site not specified (principal); Z96.0 Presence of urogenital implants; E11.9 Type 2 diabetes mellitus without complications; E78.00 Pure hypercholesterolemia, unspecified; I10 Essential (primary) hypertension; Z79.899 Other long term (current) drug therapy
CPT/HCPCS: 81001; 87086

== ENCOUNTER 2024-02-29 20:57 | Emergency (ER) | payer BC ==
[~2024-02-29] VITALS: Ht 167.6 cm; Wt 67.6 kg
[~2024-02-29 20:57] MED LIST changes: +CEPH500B PO
[2024-02-29 21:45] VITALS: BP 102/55; PULSE 95; RESP 18; O2SAT 98
[2024-03-01] MEDS ORDERED: [UNRECOGNIZED DRUG - CODE] MC (12:09)
== END 2024-02-29 22:00 | disposition home or self-care (01) ==
LOC: EDH 20:57
DX: Z43.3 Encounter for attention to colostomy (principal); E11.9 Type 2 diabetes mellitus without complications; E78.00 Pure hypercholesterolemia, unspecified; I10 Essential (primary) hypertension; Z79.899 Other long term (current) drug therapy
CPT/HCPCS: 99282

== ENCOUNTER 2024-03-01 10:17 | Emergency (ER) | payer BC ==
[~2024-03-01] VITALS: Ht 167.6 cm; Wt 67.6 kg
[2024-03-01 10:36] VITALS: BP 104/59; PULSE 98; RESP 20
[2024-03-01] MEDS ORDERED: [UNRECOGNIZED DRUG - CODE] MC (12:09)
== END 2024-03-01 12:32 | disposition home or self-care (01) ==
LOC: EDH 10:17
DX: Z43.3 Encounter for attention to colostomy (principal); E11.9 Type 2 diabetes mellitus without complications; E78.00 Pure hypercholesterolemia, unspecified; I10 Essential (primary) hypertension; Z79.899 Other long term (current) drug therapy

== ENCOUNTER 2024-03-02 23:06 | Emergency (ER) | payer BC ==
[~2024-03-02] VITALS: Ht 167.6 cm; Wt 67.6 kg
[~2024-03-02 23:06] MED LIST changes: +[UNRECOGNIZED DRUG - CODE] MC
[2024-03-02 23:08] VITALS: BP 106/53; PULSE 97; RESP 18
== END 2024-03-03 00:05 | disposition home or self-care (01) ==
LOC: EDH 23:06
DX: K94.03 Colostomy malfunction (principal); I12.0 Hypertensive chronic kidney disease with stage 5 chronic kidney disease or end stage renal disease; E11.22 Type 2 diabetes mellitus with diabetic chronic kidney disease; N18.6 End stage renal disease; E78.00 Pure hypercholesterolemia, unspecified; Z79.899 Other long term (current) drug therapy; Z99.2 Dependence on renal dialysis; Z98.890 Other specified postprocedural states
CPT/HCPCS: 99281

== ENCOUNTER 2024-03-03 08:20 | Emergency (ER) | payer BC ==
[~2024-03-03] VITALS: Ht 167.6 cm; Wt 67.6 kg
[2024-03-03 08:22] VITALS: BP 104/57; PULSE 103; RESP 14
== END 2024-03-03 10:27 | disposition home or self-care (01) ==
LOC: EDH 08:20
DX: Z43.3 Encounter for attention to colostomy (principal); E11.9 Type 2 diabetes mellitus without complications; E78.00 Pure hypercholesterolemia, unspecified; I10 Essential (primary) hypertension; Z79.899 Other long term (current) drug therapy
CPT/HCPCS: 99281

== ENCOUNTER 2024-03-04 19:47 | Inpatient (IN) | payer BC ==
[~2024-03-04] VITALS: Ht 167.6 cm; Wt 67.5 kg
[2024-03-04 20:16] LABS: BASOPHILS % (AUTO) 0.9 % (0.0-5.0); EOSINOPHILS # (AUTO) 0.22 K/uL (0.00-0.70); HEMATOCRIT 41.5 % (42-54); IMMATURE GRANULOCYTE ABSOLUTE 0.04 K/uL (0-1); LYMPHOCYTES # (AUTO) 2.3 K/uL (1.0-4.8); LYMPHOCYTES % (AUTO) 21.2 % (21.0-51.0); MEAN CORPUSCULAR HEMOGLOBIN 29.6 pg (27.0-33.0); MEAN CORPUSCULAR HGB CONC 33.5 g/dL (32.0-36.0); MEAN CORPUSCULAR VOLUME 88.5 fL (79-99); MONOCYTES # (AUTO) 0.6 K/uL (0.1-1.0); MONOCYTES % (AUTO) 5.6 % (3.0-13.0); NEUTROPHILS # (AUTO) 7.5 K/uL (1.8-7.7); NEUTROPHILS % (AUTO) 69.9 % (40.0-77.0); PLATELET COUNT (AUTO) 249 K/uL (130-400); RED BLOOD CELL COUNT(AUTO) 4.69 MIL/uL (4.50-6.20); RED CELL DISTRIBUTION WIDTH 17.9 % (11.0-15.5); WHITE BLOOD COUNT (AUTO) 10.8 K/uL (4.8-10.8)
[2024-03-04 20:31] LABS: SARS-CoV-2, RNA, NAAT NEGATIVE SARS CoV-2 (NEGATIVE)
[2024-03-04 20:37] LABS: INFLUENZA TYPE A Negative For Type A (NEGATIVE); INFLUENZA TYPE B Negative For Type B (NEGATIVE)
[2024-03-04 21:10] LABS: ALBUMIN 3.9 g/dL (3.5-5.0); BILIRUBIN,TOTAL 0.4 mg/dL (0.2-1.0); TOTAL PROTEIN, SERUM 9.2 g/dL (6.0-8.3)
[2024-03-04 21:11] LABS: CREATININE 12.8 mg/dL (0.5-1.3); POTASSIUM 7.2 mmol/L (3.5-5.1)
[2024-03-04] MEDS: ALBUTEROL 0.083% 2.5 MG/3 ML INH IH ONE (21:45)
[2024-03-04 21:48] VITALS: PULSE 79; RESP 18
[2024-03-04] MEDS: DEXTROSE 50%-WATER 50 ML DISP.SYRIN IV ONE (21:50)
[2024-03-04] MEDS: NA ZIRCON CYCLOSIL(LOKELMA 10GM) PO ONE (21:50)
[2024-03-04] MEDS: INSULIN HUMULIN R 100 UNIT/ML 3ML IV ONE (21:55)
[2024-03-04] MEDS ORDERED: ONDANSETRON 4MG INJ IVP PRN (23:30)
[2024-03-04] MEDS ORDERED: INSULIN HUMULIN R 100 UNIT/ML 3ML SQ PRN (23:30)
[2024-03-05] VITALS (90 sets, daily range): BP systolic 70–149; BP diastolic 30–95; PULSE 78–115; RESP 10–35; TEMP 98.4–98.6; O2SAT 96–98
[2024-03-05] MEDS: NOREPINEPHRIN 4MG/NS 250ML 250 ML IV SCH (01:20)
[2024-03-05 01:30] LABS: POTASSIUM 5.6 mmol/L (3.5-5.1)
[2024-03-05 01:51] LABS: CREATININE 12.8 mg/dL (0.5-1.3)
[2024-03-05] MEDS ORDERED: DOCUSATE SODIUM 100 MG CAP PO PRN (02:00)
[2024-03-05] MEDS ORDERED: IPRATROPIUM/ALBUTEROL SULFATE 3 ML SOLUTION IH PRN (02:00)
[2024-03-05] MEDS ORDERED: LACTULOSE 20 GM/30 ML UDCUP PO PRN (02:00)
[2024-03-05 03:55] LABS: BASOPHILS # (AUTO) 0.07 K/uL (0.00-0.20); BASOPHILS % (AUTO) 0.5 % (0.0-5.0); EOSINOPHILS # (AUTO) 0.07 K/uL (0.00-0.70); EOSINOPHILS % (AUTO) 0.5 % (0.0-8.0); HEMATOCRIT 40.1 % (42-54); IMMATURE GRANULOCYTE ABSOLUTE 0.08 K/uL (0-1); LYMPHOCYTES # (AUTO) 1.6 K/uL (1.0-4.8); LYMPHOCYTES % (AUTO) 11.3 % (21.0-51.0); MEAN CORPUSCULAR HEMOGLOBIN 29.7 pg (27.0-33.0); MEAN CORPUSCULAR HGB CONC 32.4 g/dL (32.0-36.0); MEAN CORPUSCULAR VOLUME 91.6 fL (79-99); MONOCYTES # (AUTO) 0.7 K/uL (0.1-1.0); MONOCYTES % (AUTO) 5.1 % (3.0-13.0); NEUTROPHILS # (AUTO) 11.7 K/uL (1.8-7.7); PLATELET COUNT (AUTO) 236 K/uL (130-400); RED BLOOD CELL COUNT(AUTO) 4.38 MIL/uL (4.50-6.20); RED CELL DISTRIBUTION WIDTH 17.6 % (11.0-15.5); WHITE BLOOD COUNT (AUTO) 14.3 K/uL (4.8-10.8)
[2024-03-05 04:10] LABS: POTASSIUM 6.2 mmol/L (3.5-5.1)
[2024-03-05 04:11] LABS: CREATININE 13.2 mg/dL (0.5-1.3)
[2024-03-05] MEDS: ALBUTEROL 0.083% 2.5 MG/3 ML INH IH ONE (07:41)
[2024-03-05] MEDS ORDERED: CEFEPIME HCL 2 GM VIAL IVPB SCH (08:30)
[2024-03-05] MEDS ORDERED: PHARMACY COMMUNICATION MISC SCH (08:30)
[2024-03-05] MEDS: CALCIUM GLUC 1GM/10ML VIAL IV ONE (08:44)
[2024-03-05] MEDS: KAYEXALATE 15GM/60ML PO ONE (08:45)
[2024-03-05] MEDS: SODIUM BICARB 50MEQ 50ML VIAL IV ONE (08:45)
[2024-03-05] MEDS: DEXTROSE 50%-WATER 50 ML DISP.SYRIN IV ONE (08:45)
[2024-03-05] MEDS: INSULIN HUMULIN R 100 UNIT/ML 3ML SQ ONE (08:47)
[2024-03-05] MEDS ORDERED: NYSTATIN 1000000 UNIT MC SCH (09:00)
[2024-03-05] MEDS ORDERED: NON-FORMULARY MEDICATION 1 EACH (Rosuvastatin Calcium 10 MG) PO SCH (09:00)
[2024-03-05] MEDS: HEPARIN 5,000 UNIT VIAL SQ SCH (09:00)
[2024-03-05] MEDS ORDERED: VANCOMYCIN PROTOCOL PER PHARMACY IV SCH (09:30)
[2024-03-05 09:49] LABS: BILIRUBIN,URINE NEGATIVE (NEGATIVE); GLUCOSE, URINE (UA) NEGATIVE (NEGATIVE); KETONES,URINE 5 mg/dL (NEGATIVE); LEUKOCYTE ESTERASE ,URINE LARGE Leu/uL (NEGATIVE); NITRATE,URINE POSITIVE (NEGATIVE); OCCULT BLOOD,URINE MODERATE (NEGATIVE); PH,URINE 5.5 (5.0-8.0); PROTEIN,URINE 100 mg/dL (NEGATIVE)
[2024-03-05] MEDS: TAMSULOSIN HCL 0.4 MG CAP.ER.24H PO SCH (09:54)
[2024-03-05] MEDS: ALBUMIN (HUMAN) 25% 100 ML IV ONE (09:58)
[2024-03-05] MEDS: 0.9%NACL 1000ML 1,000 ML IV SCH (09:58)
[2024-03-05 10:00] LABS: ADD UA MICROSCOPIC YES
[2024-03-05] MEDS: ALBUMIN (HUMAN) 25% 50 ML IV.SOLN. IV SCH (10:00)
[2024-03-05 10:01] LABS: RBC,URINE TNTC /HPF (0-1)
[2024-03-05 10:02] LABS: APPEARANCE,URINE TURBID (CLEAR)
[2024-03-05 10:03] LABS: BACTERIA,URINE Few /HPF (None Seen); COLOR,URINE RED (YELLOW); WBC,URINE >100 /HPF (0-1)
[2024-03-05] MEDS: HEPARIN 5,000 UNIT VIAL IJ SCH (12:44)
[2024-03-05] MEDS: CEFEPIME HCL 1 GM VIAL IVPB SCH (13:42)
[2024-03-05] MEDS: ALBUMIN (HUMAN) 5% 250 ML IV ONE (13:42)
[2024-03-05] MEDS ORDERED: ALBUMIN (HUMAN) 5% 250 ML IV ONE (14:00)
[2024-03-05] MEDS ORDERED: LOSA50TA64 PO (14:07)
[2024-03-05] MEDS ORDERED: ATOR40TA71 PO (14:07)
[2024-03-05] MEDS ORDERED: METF-444 PO (14:07)
[2024-03-05 14:26] LABS: CREATININE 6.8 mg/dL (0.5-1.3)
[2024-03-05] MEDS: VANCOMYCIN 1.25 GM/250 ML BAG 250 ML IV ONE (17:34)
[2024-03-05] MEDS: ATORVASTATIN 40 MG TABLET PO SCH (21:03)
[2024-03-05] MEDS: MIDODRINE HCL 5 MG TABLET PO SCH (21:03)
[2024-03-05] MEDS: NYSTATIN 15 GM POWDER TP SCH (21:32)
[2024-03-05] MEDS: ACETAMINOPHEN 325 MG TAB PO PRN (22:20)
[2024-03-06] VITALS (19 sets, daily range): BP systolic 98–162; BP diastolic 55–86; PULSE 69–86; RESP 12–27; O2SAT 96–100
[2024-03-06 04:09] LABS: BASOPHILS # (AUTO) 0.05 K/uL (0.00-0.20); BASOPHILS % (AUTO) 0.7 % (0.0-5.0); EOSINOPHILS # (AUTO) 0.33 K/uL (0.00-0.70); EOSINOPHILS % (AUTO) 4.9 % (0.0-8.0); HEMATOCRIT 34.8 % (42-54); IMMATURE GRANULOCYTE ABSOLUTE 0.02 K/uL (0-1); LYMPHOCYTES # (AUTO) 2.6 K/uL (1.0-4.8); LYMPHOCYTES % (AUTO) 38.7 % (21.0-51.0); MEAN CORPUSCULAR HEMOGLOBIN 29.4 pg (27.0-33.0); MEAN CORPUSCULAR HGB CONC 33.6 g/dL (32.0-36.0); MEAN CORPUSCULAR VOLUME 87.4 fL (79-99); MONOCYTES # (AUTO) 0.6 K/uL (0.1-1.0); NEUTROPHILS # (AUTO) 3.2 K/uL (1.8-7.7); NEUTROPHILS % (AUTO) 46.4 % (40.0-77.0); PLATELET COUNT (AUTO) 204 K/uL (130-400); RED BLOOD CELL COUNT(AUTO) 3.98 MIL/uL (4.50-6.20); RED CELL DISTRIBUTION WIDTH 17.8 % (11.0-15.5); WHITE BLOOD COUNT (AUTO) 6.8 K/uL (4.8-10.8)
[2024-03-06 04:21] LABS: MAGNESIUM 1.7 mg/dL (1.80-2.40); PHOSPHORUS 8.5 mg/dL (2.5-4.9); POTASSIUM 5.1 mmol/L (3.5-5.1)
[2024-03-06 04:28] LABS: CREATININE 8.4 mg/dL (0.5-1.3)
[2024-03-06] MEDS: INSULIN HUMULIN R 100 UNIT/ML 3ML SQ SCH (12:27)
[2024-03-06 14:24] LABS: HEPATITIS B CORE AB TOTAL Non-Reactive (Nonreactive); HEPATITIS B SURFACE ANTIBODY Negative (Reactive); HEPATITIS B SURFACE ANTIGEN Non-Reactive (Nonreactive)
[2024-03-06] MEDS: TEMAZEPAM 15 MG CAPSULE PO PRN (20:02)
[2024-03-06] MEDS: MAGNESIUM 4GM PREMIX 100ML IV ONE (20:04)
[2024-03-07] VITALS: BP 133/69; PULSE 72; RESP 20
[2024-03-07 03:49] VITALS: O2SAT 96
[2024-03-07 04:00] VITALS: BP 142/85; PULSE 69; RESP 19
[2024-03-07 06:23] LABS: BASOPHILS # (AUTO) 0.07 K/uL (0.00-0.20); EOSINOPHILS # (AUTO) 0.51 K/uL (0.00-0.70); EOSINOPHILS % (AUTO) 7.5 % (0.0-8.0); HEMATOCRIT 37.4 % (42-54); IMMATURE GRANULOCYTE ABSOLUTE 0.03 K/uL (0-1); LYMPHOCYTES % (AUTO) 28.8 % (21.0-51.0); MEAN CORPUSCULAR HEMOGLOBIN 29.4 pg (27.0-33.0); MEAN CORPUSCULAR HGB CONC 32.1 g/dL (32.0-36.0); MEAN CORPUSCULAR VOLUME 91.7 fL (79-99); MONOCYTES # (AUTO) 0.7 K/uL (0.1-1.0); MONOCYTES % (AUTO) 9.5 % (3.0-13.0); NEUTROPHILS # (AUTO) 3.6 K/uL (1.8-7.7); NEUTROPHILS % (AUTO) 52.8 % (40.0-77.0); PLATELET COUNT (AUTO) 196 K/uL (130-400); RED BLOOD CELL COUNT(AUTO) 4.08 MIL/uL (4.50-6.20); RED CELL DISTRIBUTION WIDTH 16.9 % (11.0-15.5); WHITE BLOOD COUNT (AUTO) 6.8 K/uL (4.8-10.8)
[2024-03-07 06:35] LABS: ALBUMIN 3.8 g/dL (3.5-5.0); BILIRUBIN,TOTAL 0.4 mg/dL (0.2-1.0)
[2024-03-07 06:39] VITALS: RESP 18; O2SAT 100
[2024-03-07 08:00] VITALS: BP 126/66; PULSE 69; RESP 18; O2SAT 96
[2024-03-07 12:00] VITALS: BP 111/61; PULSE 71; RESP 20
[2024-03-07] MEDS ORDERED: SEVELAMER HCL 800 MG TABLET PO SCH (17:00)
[2024-03-08] MEDS ORDERED: VANCOMYCIN 500MG+NS 100ML 100 ML IV SCH (16:00)
[2024-03-08] MEDS ORDERED: ONDA-243 PO (20:25)
== END 2024-03-07 15:05 | disposition home or self-care (01) | DRG 871 ==
LOC: EDH 19:47 → EDHIP 23:04 → 2BH 03-05 02:50 → 3DH 03-06 12:37
PROVIDERS: ADMIT Internal Medicine Infectious Disease; ATTEND Internal Medicine Infectious Disease
DX: A41.9 Sepsis, unspecified organism (principal); N18.6 End stage renal disease; R65.21 Severe sepsis with septic shock; N39.0 Urinary tract infection, site not specified; I12.0 Hypertensive chronic kidney disease with stage 5 chronic kidney disease or end stage renal disease; C64.1 Malignant neoplasm of right kidney, except renal pelvis; L98.498 Non-pressure chronic ulcer of skin of other sites with other specified severity; K61.1 Rectal abscess; E11.22 Type 2 diabetes mellitus with diabetic chronic kidney disease; E87.8 Other disorders of electrolyte and fluid balance, not elsewhere classified; N40.1 Benign prostatic hyperplasia with lower urinary tract symptoms; E87.5 Hyperkalemia; E11.65 Type 2 diabetes mellitus with hyperglycemia; E78.00 Pure hypercholesterolemia, unspecified; Z85.528 Personal history of other malignant neoplasm of kidney; Z93.3 Colostomy status; Z83.3 Family history of diabetes mellitus; Z99.2 Dependence on renal dialysis; Z87.440 Personal history of urinary (tract) infections; Z79.899 Other long term (current) drug therapy
CPT/HCPCS: 36415; 71045; 74176; 80048; 80053; 81001; 82306; 82607; 82948; 83036; 83605; 83735; 84100; 84145; 84425; 84484; 85025; 86704; 86706; 87040; 87086; 87340; 87635; 87804; 90935; 93005; 94640; 94664; G0378; J0612; J0692; J1644; J1815; J3475; J3490; J7070; P9045; P9046; 3370

== ENCOUNTER 2024-03-08 18:29 | Emergency (ER) | payer BC ==
[~2024-03-08] VITALS: Ht 167.6 cm; Wt 68.0 kg
[~2024-03-08 18:29] MED LIST changes: +ATOR40TA71 PO; -CEPH500B PO; +LOSA50TA64 PO; +METF-444 PO; -ROSU10TA72 PO
[2024-03-08] MEDS ORDERED: ONDA-243 PO (20:25)
[2024-03-08 20:29] VITALS: BP 138/70; PULSE 72; RESP 18; O2SAT 98
== END 2024-03-08 20:37 | disposition home or self-care (01) ==
LOC: EDH 18:29
DX: Z48.815 Encounter for surgical aftercare following surgery on the digestive system (principal); E11.9 Type 2 diabetes mellitus without complications; E78.00 Pure hypercholesterolemia, unspecified; I10 Essential (primary) hypertension; Z79.84 Long term (current) use of oral hypoglycemic drugs; Z79.899 Other long term (current) drug therapy; Z93.3 Colostomy status; Z98.890 Other specified postprocedural states

== ENCOUNTER 2024-06-08 09:32 | Day surgery (SDC) | payer OTHER ==
[2024-06-06 09:59] LABS: BASOPHILS # (AUTO) 0.05 K/uL (0.00-0.20); BASOPHILS % (AUTO) 0.7 % (0.0-5.0); EOSINOPHILS # (AUTO) 0.22 K/uL (0.00-0.70); HEMATOCRIT 37.8 % (42-54); IMMATURE GRANULOCYTE ABSOLUTE 0.02 K/uL (0-1); LYMPHOCYTES # (AUTO) 2.2 K/uL (1.0-4.8); LYMPHOCYTES % (AUTO) 30.3 % (21.0-51.0); MEAN CORPUSCULAR HEMOGLOBIN 30.9 pg (27.0-33.0); MEAN CORPUSCULAR HGB CONC 33.3 g/dL (32.0-36.0); MEAN CORPUSCULAR VOLUME 92.6 fL (79-99); MONOCYTES # (AUTO) 0.4 K/uL (0.1-1.0); MONOCYTES % (AUTO) 5.9 % (3.0-13.0); NEUTROPHILS # (AUTO) 4.4 K/uL (1.8-7.7); NEUTROPHILS % (AUTO) 59.8 % (40.0-77.0); PLATELET COUNT (AUTO) 194 K/uL (130-400); RED BLOOD CELL COUNT(AUTO) 4.08 MIL/uL (4.50-6.20); RED CELL DISTRIBUTION WIDTH 14.2 % (11.0-15.5); WHITE BLOOD COUNT (AUTO) 7.3 K/uL (4.8-10.8)
[2024-06-06 10:16] LABS: ALBUMIN 3.4 g/dL (3.5-5.0); POTASSIUM 4.4 mmol/L (3.5-5.1); TOTAL PROTEIN, SERUM 7.9 g/dL (6.0-8.3)
[~2024-06-08] VITALS: Ht 167.6 cm; Wt 77.1 kg
[2024-06-08] VITALS (14 sets, daily range): BP systolic 102–149; BP diastolic 49–89; PULSE 64–72; RESP 15–18; TEMP 96.6–98
[~2024-06-08 09:32] MED LIST changes: +ONDA-243 PO
[2024-06-08] MEDS ORDERED: FOLI0.8T22 PO (10:42)
[2024-06-08] MEDS: 0.9% NACL 500ML IV.SOLN 500 ML IV ONE (10:48)
[2024-06-08] MEDS ORDERED: FENTanyl CITRate PF 50 MCG/1 ML 2ML VIAL ONE (12:18)
[2024-06-08] MEDS ORDERED: proPOFol 10 MG/ML 20ML VIAL IV ONE (12:19)
[2024-06-08] MEDS ORDERED: LIDOCAINE HCL MPF 1% 5ML VIAL ONE (12:19)
[2024-06-08] MEDS ORDERED: phenylEPHRINE HCL 10 MG/ML 1ML VIAL IV ONE (13:05)
== END 2024-06-08 15:16 | disposition home or self-care (01) ==
LOC: DAH 09:32
PROVIDERS: ATTEND Student in an Organized Health Care Education/Training Program
DX: Z12.11 Encounter for screening for malignant neoplasm of colon (principal); I12.0 Hypertensive chronic kidney disease with stage 5 chronic kidney disease or end stage renal disease; E11.22 Type 2 diabetes mellitus with diabetic chronic kidney disease; N18.6 End stage renal disease; Z90.49 Acquired absence of other specified parts of digestive tract; Z87.891 Personal history of nicotine dependence; Z93.3 Colostomy status; Z79.899 Other long term (current) drug therapy
CPT/HCPCS: 80053; 85025; 36415; 82948 ×2; G0121; J7040; J3010; J2704; J2371; J3490; A4620; A4215 ×2; A4223; A4657; A4222; A4221; A4663; A4606; 45378

== ENCOUNTER 2024-07-02 19:36 | Emergency (ER) | payer OTHER, MEDICARE ==
[~2024-07-02] VITALS: Ht 167.6 cm; Wt 72.6 kg
[~2024-07-02 19:36] MED LIST changes: +FOLI0.8T22 PO; -LOSA50TA64 PO; -METF-444 PO; -ONDA-243 PO; -[UNRECOGNIZED DRUG - CODE] MC
--- NOTE | 2024-07-02 19:55 | ERN ---
ED Note History of Present Illness Stated Complaint: OZUNA NOT DRAINING Chief Complaint: Urinary Catheter Problems Time Seen by MD: 19:38 Dictation: PATIENT IS A 58-YEAR-OLD MALE HERE WITH HIS WITH COMPLAINTS OF HAVING A OZUNA CATHETER WAS PLACED AT [facility] [place] ON THURSDAY, STATES HE NOW NOT DRAINING LIKE IT WAS YESTERDAY. NO ABDOMINAL DISTENTION NO BLADDER DISTENTION UNABLE TO PALPATE. PATIENT IS A HEMODIALYSIS PATIENT. Allergies: Coded Allergies: No Known Drug Allergies (Unverified Allergy, Unknown, 07/14/21) Home Meds Reported Medications Folic Acid/Vitamin B Comp W-C (Luciana-Jayme Tablet) 0.8 Mg Tablet, 1 TAB PO DAILY for 30 Days, #30 TAB 0 Refills 06/08/24 Atorvastatin Calcium (Atorvastatin Calcium) 40 Mg Tablet, 40 MG PO HS, TAB 03/05/24 Dutasteride (Dutasteride) 0.5 Mg Capsule, 0.5 MG PO DAILY, CAP 12/14/23 Tamsulosin HCl (Flomax) 0.4 Mg Cap.er.24h, 0.4 MG PO DAILY, CAPSULE. 12/14/23 Past Medical History Past Medical History: Diabetes-Type II, High Cholesterol, Hypertension, Renal Disese, Renal Failure, Other Additional Past Medical Hx: Acute urinary retention Ozuna catheter indwelling Surgical History: Other Surgical History Other: Diverting ostomy for wound healing purposes Family History: Negative Social History: Negative, Lives with family RN Note Reviewed/Agreed w/PFSH: Yes Review of System Dictation CONSTITUTIONAL: NEGATIVE EXCEPT FOR HPI HEAD/FACE: NEGATIVE EXCEPT FOR HPI EENT: NEGATIVE EXCEPT FOR HPI RESPIRATORY: NEGATIVE EXCEPT FOR HPI GASTROINTESTINAL/ABDOMINAL: NEGATIVE EXCEPT FOR HPI GENITOURINARY: NEGATIVE EXCEPT FOR HPI OZUNA CATHETER MUSCULOSKELETAL: NEGATIVE EXCEPT FOR HPI INTEGUMENTARY: NEGATIVE EXCEPT FOR HPI NEUROLOGICAL/PSYCH: NEGATIVE EXCEPT FOR HPI HEMATOLOGIC/LYMPHATIC: NEGATIVE EXCEPT FOR HPI ALL SYSTEMS NEGATIVE, EXCEPT NOTED ABOVE. 13 POINT REVIEW OF SYSTEMS ASSESSED AND ALL NEGATIVE EXCEPT FOR ABOVE. Initial Vital Sign VS Vital Signs Date Time Temp Pulse Resp B/P (MAP) Pulse Ox O2 Delivery O2 Flow Rate FiO2 07/02/24 19:37 98.1 97 20 125/56 100 Room Air 07/02/24 20:43 0 21 Physical Exam Dictation VITAL SIGNS REVIEWED GENERAL APPEARANCE: ALERT, ORIENTED X 3, NO ACUTE DISTRESS, WELL DEVELOPED, NOUR ISHED. HEAD AND FACE: NON-TRAUMATIC. EYES: PERRL, PINK CONJUNCTIVAS, EYELID NO TRAUMA, ANTERIOR CHAMBER WITH ARCUS SENILIS. EARS: PINNAS INTACT AND NO SIGNS OF TRAUMA OR ERYTHEMA EAR CANALS CLEAR AND NO DISCHARGE TM NO ERYTHEMA NOSE: NO DISCHARGE, NO BLEEDING. OROPHARYNX: MOUTH NORMAL, TONGUE PINK, PHARYNX CLEAR,NO ERYTHEMA, TONSILS NO EXUDATES, NO ABSCESSES NOTED, MUCOUS MEM BRANE MOIST NECK: SUPPLE, NON-TENDER, NO THYROMEGALY, NO MASSES, NO JVD, NO BRUITS BREAST:DEFERRED CHEST:NO TENDERNESS, NO CREPITUS, NO PARADOXICAL MOVEMENT, NO RETRACTIONS LUNGS:CLEAR, WELL-VENTILATED, SYMMETRIC, NO RALES, NO WHEEZING, NO RHONCHI, NO STRIDOR, GOOD BREATH SOUNDS BILATERALLY HEART: REGULAR RATE, REGULAR RHYTHM, NO MURMUR, NO GALLOPS VASCULAR: NO PERIPHERAL EDEMA, ABDOMEN: SOFT, POSITIVE BOWEL SOUNDS, NONDISTENDED, NO GUARDING, NONTENDER, NO REBOUND, NO MASSES NO HEPATOMEGALY, NO SPLENOMEGALY, NO MAGALLON'S SIGN, NO HERNIAS. RECTAL: DEFERRED GENITAL: DEFERRED OZUNA CATHETER LEG BAG APPROXIMATE 6-8 ML OF URINE IN BAG. PATIENT HAS END-STAGE RENAL DISEASE NEUROLOGICAL: NORMAL SPEECH, MOTOR FUNCTION INTACT, SENSORY FUNCTION INTACT MUSCULOSKELETAL: NECK NONTENDER, FULL RANGE OF MOTION, BACK NONTENDER, FULL RANGE OF MOTION, EXTREMITIES: NONTENDER, FULL RANGE OF MOTION SKIN: COLOR PINK, DRY, NO TURGOR, NO RASH, NO LACERATIONS, NO ABRASIONS, NO CONTUSIONS. LYMPHATIC: DEFERRED Results (Laboratory/Radiology) Laboratory/Radiology Laboratory Tests Test 07/02/24 20:41 Urine Color ORANGE (YELLOW) Urine Appearance TURBID (CLEAR) Urine pH 6.5 (5.0-8.0) Urine Specific [place] 1.028 (1.001-1.031) Urine Protein 600 mg/dL (NEGATIVE) H Urine Glucose (UA) NEGATIVE mg/dL (NEGATIVE) Urine Ketones NEGATIVE mg/dL (NEGATIVE) Urine Occult Blood LARGE (NEGATIVE) H Urine Nitrate NEGATIVE (NEGATIVE) Urine Bilirubin NEGATIVE mg/dL (NEGATIVE) Urine Urobilinogen 0.2 mg/dL (0.2-1.0) Urine Leukocyte Esterase 500 Nora/uL (NEGATIVE) H ED Course ED Course Orders Procedure Category Date Status Time Bladder Scan CPOE 07/02/24 Transmitted 19:54 Urinalysis Profile LAB 07/02/24 In Process 20:44 Culture Urine DAVID 07/02/24 In Process 21:37 Amox/Clav 875/125mg PHA 07/02/24 In Process Tab (Augmentin 875-1 22:00 Current Medications Medications (Trade) Dose Ordered Sig/Rubens Route PRN Reason Start Time Stop Time Status Last Admin Dose Admin Amoxicillin/ Clavulanate Potassium (Augmentin 875-125 Tablet) 1 each ONCE ONCE PO 07/02/24 22:00 07/02/24 22:01 Vital Signs Date Time Temp Pulse Resp B/P (MAP) Pulse Ox O2 Delivery O2 Flow Rate FiO2 07/02/24 20:43 97.5 66 20 124/84 100 Room Air* 0 21 07/02/24 19:37 98.1 97 20 125/56 100 Room Air TWO [employer]OUSAND TWO HUNDRED, PATIENT HAS ACUTE URINARY TRACT INFECTION WE WILL BE GIVEN AUGMENTIN AND TOLD SEE HIS PRIMARY CARE DOCTOR THURSDAY. Medical Decision Making MDM MEDICAL DISCHARGE MAKING BASED ON BLADDER SCAN AND URINALYSIS FROM OZUNA CATHETER. PATIENT HAS A ACUTE UTI WE WILL BE TREATED WITH AUGMENTIN TOLD SEE HIS PRIMARY CARE DOCTOR ON THURSDAY DX & DISP Disposition: Discharge Departure Impression: Primary Impression: UTI (urinary tract infection) Additional Impression: Ozuna catheter in place Condition: Stable Scripts Amoxicillin/Potassium Clav (Amox Tr-K Clv 875-125 mg Tab) 875 Mg-125 Mg Tablet 1 EACH PO BID for 7 Days, #14 TAB 0 Refills Prov: AMADOU BANEGAS AUTOMATIC EQUIPMENT TECHNICIAN 07/02/24 Additional Instructions: FOLLOW-UP WITH PRIMARY CARE PROVIDER IN 1 TO 2 DAYS. TAKE MEDICATIONS DIRECTED HERE IN THE EMERGENCY ROOM. OKAY TO CONTINUE HOME MEDICATIONS UNLESS OTHERWISE DISCUSSED DURING YOUR VISIT IN THE EMERGENCY ROOM TODAY. RETURN TO YOUR NEAREST EMERGENCY ROOM IF SYMPTOMS WORSEN OR IF THERE IS NO IMPROVEMENT. CALL 911 IF YOU NEED IMMEDIATE ASSISTANCE. TAKE TYLENOL OR MOTRIN [id number] NEEDED AND IF NO CONTRAINDICATIONS ARE PRESENT. INCREASE ORAL HYDRATION. A WOUND CULTURE OR URINE CULTURE WAS ORDERED HERE IN THE EMERGENCY ROOM DEPARTMENT PLEASE FOLLOW-UP WITH PRIMARY CARE PROVIDER AND ADVISE THEM TO GET REPEAT PORTS FROM OUR FACILITY. IF YOU HAD ANY JOSÉ WRAP/SPLINTS THAT WERE APPLIED HERE, PLEASE DO NOT REMOVE THEM UNTIL YOU SEE YOUR PRIMARY CARE OR SPECIALTY. TAKE ANTIBIOTICS DIRECTED UNTIL GONE, SEE YOUR PRIMARY CARE DOCTOR ON THURSDAY FOR FOLLOW UP Referrals: RADHA JARAMILLO MD (PCP) Time of Disposition: 22:02 I have reviewed the case, and I agree with, Diagnosis and Plan AMADOU BANEGAS AUTOMATIC EQUIPMENT TECHNICIAN Jul 02, 2024 19:55
[2024-07-02 21:34] LABS: APPEARANCE,URINE TURBID (CLEAR); BILIRUBIN,URINE NEGATIVE (NEGATIVE); COLOR,URINE ORANGE (YELLOW); GLUCOSE, URINE (UA) NEGATIVE (NEGATIVE); KETONES,URINE NEGATIVE (NEGATIVE); LEUKOCYTE ESTERASE ,URINE 500 Leu/uL (NEGATIVE); NITRATE,URINE NEGATIVE (NEGATIVE); OCCULT BLOOD,URINE LARGE (NEGATIVE); PH,URINE 6.5 (5.0-8.0); PROTEIN,URINE 600 mg/dL (NEGATIVE); UROBILINOGEN,URINE 0.2 mg/dL (0.2-1.0)
[2024-07-02 21:37] LABS: ADD UA MICROSCOPIC YES
[2024-07-02 21:48] LABS: OTHER CASTS, URINE 41 /LPF (None Seen); RBC,URINE TNTC /HPF (0-1); WBC CLUMP MANY /HPF (0-1); WBC,URINE TNTC /HPF (0-1); YEAST,URINE BUDDING FEW /HPF (None Seen)
[2024-07-02] MEDS: AMOX/CLAV 875/125MG TAB PO ONE (22:02)
[2024-07-02 22:03] VITALS: BP 128/87; PULSE 67; RESP 20; TEMP 97.6; O2SAT 100
[2024-07-02] MEDS ORDERED: AMOX1TAB16 PO (22:03)
== END 2024-07-02 22:05 | disposition home or self-care (01) ==
LOC: EDH 19:36
DX: N39.0 Urinary tract infection, site not specified (principal); E11.9 Type 2 diabetes mellitus without complications; E78.00 Pure hypercholesterolemia, unspecified; I10 Essential (primary) hypertension; Z96.0 Presence of urogenital implants; Z79.899 Other long term (current) drug therapy
CPT/HCPCS: 81001; 87086; 87186

== ENCOUNTER 2024-07-25 15:31 | Emergency (ER) | payer OTHER, MEDICARE ==
[~2024-07-25] VITALS: Ht 167.6 cm; Wt 72.6 kg
[~2024-07-25 15:31] MED LIST changes: +AMOX1TAB16 PO
[2024-07-25 15:33] VITALS: TEMP 97.9
--- NOTE | 2024-07-25 15:44 | ERN ---
ED Note History of Present Illness Stated Complaint: URINE INFECTION Chief Complaint: Urinary Catheter Problems Time Seen by MD: 15:32 Time Seen by Midlevel: 15:36 Dictation: 58-year-old male with a history of ESRD, TTS, last dialysis on Thursday and mary mayberry coming in complaining of dysuria started this morning. Patient states he usually has a UTI is because he has a indwelling Holden. Patient is denying any nausea, vomiting, fever, body aches or chills. Denies any back pain or flank pain. Allergies: Coded Allergies: No Known Drug Allergies (Unverified Allergy, Unknown, 07/14/21) Home Meds Active Scripts Sulfamethoxazole/Trimethoprim (Bactrim Ds Tablet) 800 Mg-160 Mg Tablet, 1 TAB PO BID for 7 Days, #14 TAB 0 Refills Prov:ERENDIRA FITZPATRICK SURGICAL ENDOSCOPIST 07/25/24 Amoxicillin/Potassium Clav (Amox Tr-K Clv 875-125 mg Tab) 875 Mg-125 Mg Tablet, 1 EACH PO BID for 7 Days, #14 TAB 0 Refills Prov:AMADOU BANEGAS SURGICAL ENDOSCOPIST 07/02/24 Reported Medications Folic Acid/Vitamin B Comp W-C (Luciana-Jayme Tablet) 0.8 Mg Tablet, 1 TAB PO DAILY for 30 Days, #30 TAB 0 Refills 06/08/24 Atorvastatin Calcium (Atorvastatin Calcium) 40 Mg Tablet, 40 MG PO HS, TAB 03/05/24 Dutasteride (Dutasteride) 0.5 Mg Capsule, 0.5 MG PO DAILY, CAP 12/14/23 Tamsulosin HCl (Flomax) 0.4 Mg Cap.er.24h, 0.4 MG PO DAILY, CAPSULE. 12/14/23 Past Medical History Past Medical History: Diabetes-Type II, High Cholesterol, Hypertension, Renal Disese, Renal Failure, Other Additional Past Medical Hx: Acute urinary retention Holden catheter indwelling Surgical History: Other Surgical History Other: Diverting ostomy for wound healing purposes Family History: Negative Social History: Negative, Lives with family Review of System Dictation Constitutional: Negative for fever,chills, and weight loss Eyes: Negative for injury, pain,redness, and discharge ENT: Negative for injury,pain or swelling Cardiovascular: Negative for chest pain, palpitations, and edema Respiratory: Negative for shortness of breath, cough, and wheezing, Abdomen/GI: Negative for abdominal pain, nausea, vomiting, diarrhea, and constipation Back: Negative for injury and pain : Negative for injury, bleeding and discharge, dysuria MS/Extremity: Negative for injury and deformity Skin: Negative for rash, and discoloration Neuro: Negative for headache, weakness, numbness, tingling, and seizure Psych: Negative for suicide ideation, homicidal ideation, and hallucinations Review of Systems: was completed Initial Vital Sign VS Vital Signs Date Time Temp Pulse Resp B/P (MAP) Pulse Ox O2 Delivery O2 Flow Rate FiO2 07/25/24 15:33 97.9 87 16 159/71 100 Room Air 0 07/25/24 17:20 21 Physical Exam Dictation General: awake, alert, NAD Head/Face: Normocephalic, atraumatic Eyes: PERRL, EOMI, vision at baseline ENT: oral cavity clear, TMs clear, no signs of infection Neck: Trachea midline, supple, no nuchal rigidity Cardiovascular: RRR, normal S1/S2, No MRGs, no JVD Respiratory: CTAB, no respiratory distress, No rales or wheezes Abdomen: Soft, non-tender, non-distended, normal bowel sounds, no guarding or rebound. Skin: Warm, dry, normal turgor, no rash MS/Extremity: Pulses equal, no cyanosis, neurovascular intact, FROM Neuro: COAx4, GCS 15, strength 5/5, CN 2-12 intact, normal cerebellar exam, normal gait, Psych: Normal behavior, mood, and affect normal Results (Laboratory/Radiology) Laboratory/Radiology Laboratory Tests Test 07/25/24 16:22 Urine Color YELLOW (YELLOW) Urine Appearance SL CLOUDY (CLEAR) Urine pH 6.0 (5.0-8.0) Urine Specific [place] 1.022 (1.001-1.031) Urine Protein >=300 mg/dL (NEGATIVE) H Urine Glucose (UA) NEGATIVE mg/dL (NEGATIVE) Urine Ketones 5 mg/dL (NEGATIVE) H Urine Occult Blood LARGE (NEGATIVE) H Urine Nitrate NEGATIVE (NEGATIVE) Urine Bilirubin SMALL mg/dL (NEGATIVE) H Urine Urobilinogen 0.2 mg/dL (0.2-1.0) Urine Leukocyte Esterase MODERATE Nora/uL Urine RBC 11-25 /HPF (0-1) H Urine WBC 26-50 /HPF (0-1) H Urine Squamous Epithelial Cells Rare /HPF (0-2) Urine Bacteria Moderate /HPF (None Seen) H Urine Yeast Few /HPF (None Seen) H Labs Reviewed?: Yes ED Course ED Course Orders Procedure Category Date Status Time Urinalysis Profile LAB 07/25/24 Complete 15:42 Nurse Driven Holden CHERIE 07/25/24 Complete Removal Pro 16:37 Holden Bag With Home CPOE 07/25/24 Transmitted Instruct 16:39 Culture Urine DAVID 07/25/24 Complete 16:46 Vital Signs Date Time Temp Pulse Resp B/P (MAP) Pulse Ox O2 Delivery O2 Flow Rate FiO2 07/25/24 17:20 81 16 144/63 98 Room Air* 0 21 07/25/24 15:33 97.9 87 16 159/71 100 Room Air 0 Medical Decision Making MDM MDM: 58-year-old male with a history of ESRD, TTS, last dialysis on Thursday and diabetes coming in complaining of dysuria started this morning. Patient states he usually has a UTI is because he has a indwelling Holden. Patient is denying any nausea, vomiting, fever, body aches or chills. Denies any back pain or flank pain. On physical exam patient has clear bilateral lung sounds, abdomen is soft and nondistended, no tenderness to palpation, no CVA tenderness. UA shows evidence of urinary tract infection, as per last medical culture of the urine Bactrim shows susceptible. We will prescribe patient Bactrim to go home with. Differential diagnosis: UTI, pyelonephritis, pain related to Holden placement Rationale: Tests considered and ordered secondary to shared decision making include: Previous outside records reviewed: Old ER visits. Risk of complication and/or morbidity or mortality of patient management: None Medications-Per medication reconciliation Need for hospitalization: Patient does not meet criteria for hospitalization. Need for emergency major/minor surgery: No There are no social concerns with this patient. Prescription drug management Prescriptions will include symptomatic care Patient's prior external medical records from other ER visits were reviewed by me as indicated. Prior testing and results from previous visits were reviewed. Prior tests were taken into account with medical decision making and resource utilization, independent historian/historians were used to obtain complete medical history. I independently interpreted the test that were performed, results were reviewed by me and considered findings on radiology if ordered. Medical management and examination interpretation discussions were had by me with other qualified healthcare professionals as indicated for the patient's care. DX & DISP Disposition: Discharge Departure Impression: Primary Impression: UTI (urinary tract infection) Condition: Stable Scripts Sulfamethoxazole/Trimethoprim (Bactrim Ds Tablet) 800 Mg-160 Mg Tablet 1 TAB PO BID for 7 Days, #14 TAB 0 Refills Prov: ERENDIRA FITZPATRICK NP 07/25/24 Referrals: RADHA JARAMILLO MD (PCP) Time of Disposition: 17:21 I have reviewed the case, and I agree with, Diagnosis and Plan I performed this substantive portion of this visit. I have reviewed and personally made and approve the management plan that is documented in the note by myself or the FRANCISCO. I acknowledge full responsibility for the patient's management plan. ERENDIRA FITZPATRICK NP Jul 25, 2024 15:44 VENKATA CARROLL MD Jul 26, 2024 10:11
[2024-07-25 16:39] LABS: APPEARANCE,URINE SL CLOUDY (CLEAR); BILIRUBIN,URINE SMALL mg/dL (NEGATIVE); COLOR,URINE YELLOW (YELLOW); GLUCOSE, URINE (UA) NEGATIVE (NEGATIVE); KETONES,URINE 5 mg/dL (NEGATIVE); LEUKOCYTE ESTERASE ,URINE MODERATE Leu/uL (NEGATIVE); NITRATE,URINE NEGATIVE (NEGATIVE); OCCULT BLOOD,URINE LARGE (NEGATIVE); PROTEIN,URINE >=300 mg/dL (NEGATIVE); UROBILINOGEN,URINE 0.2 mg/dL (0.2-1.0)
[2024-07-25 16:43] LABS: ADD UA MICROSCOPIC YES
[2024-07-25 16:56] LABS: WBC,URINE 26-50 /HPF (0-1)
[2024-07-25 16:57] LABS: BACTERIA,URINE Moderate /HPF (None Seen); YEAST,URINE BUDDING Few /HPF (None Seen)
[2024-07-25 16:58] LABS: SQUAMOUS EPITHELIAL CELL,UR Rare /HPF (0-2)
[2024-07-25 17:20] VITALS: BP 144/63; PULSE 81; RESP 16; O2SAT 98
[2024-07-25] MEDS ORDERED: SULF1TAB42 PO (17:21)
--- NOTE | 2024-07-25 17:44 | NUR ---
pts bladder was scanned, showing 0 mL, 0mL, and 8 mL urine on scan. pt reports that he is draining slowly. pt dos have approx 100 ml of urine noted in leg bag.
== END 2024-07-25 17:51 | disposition home or self-care (01) ==
LOC: EDH 15:31
DX: N39.0 Urinary tract infection, site not specified (principal); E11.9 Type 2 diabetes mellitus without complications; E78.00 Pure hypercholesterolemia, unspecified; I10 Essential (primary) hypertension; Z79.899 Other long term (current) drug therapy; Z98.890 Other specified postprocedural states
CPT/HCPCS: 81001; 87086; 87186; 99284

== ENCOUNTER 2024-08-29 14:24 | Emergency (ER) | payer OTHER, MEDICARE ==
[~2024-08-29] VITALS: Ht 167.6 cm; Wt 80.7 kg
[~2024-08-29 14:24] MED LIST changes: +SULF1TAB42 PO
--- NOTE | 2024-08-29 15:26 | NUR ---
BLADDER SCAN COMPLETED VOLUME: 0.0ML
--- NOTE | 2024-08-29 15:44 | ERN ---
ED Note History of Present Illness Stated Complaint: DYSURIA X 2 DAYS Chief Complaint: Painful Urination Time Seen by MD: 14:28 Dictation: 58-year-old male presents to the ED for evaluation of dysuria onset 2 days ago. Patient denies any fever, hematuria or any other associated symptoms at this time. As per patient he has a suprapubic catheter in place and recently finished a round of antibiotics. Patient has a Holden catheter in place. Urologist is Dr. Vasquez in [place]. Allergies: Coded Allergies: No Known Drug Allergies (Unverified Allergy, Unknown, 07/14/21) Home Meds Active Scripts Nitrofurantoin/Nitrofuran Mac (Macrobid) 100 Mg Cap, 1 CAP PO BID for 7 Days, #14 CAP 0 Refills Prov:FLORENCE DOMÍNGUEZ MD 08/29/24 Sulfamethoxazole/Trimethoprim (Bactrim Ds Tablet) 800 Mg-160 Mg Tablet, 1 TAB PO BID for 7 Days, #14 TAB 0 Refills Prov:ERENDIRA FITZPATRICK NP 07/25/24 Amoxicillin/Potassium Clav (Amox Tr-K Clv 875-125 mg Tab) 875 Mg-125 Mg Tablet, 1 EACH PO BID for 7 Days, #14 TAB 0 Refills Prov:AMADOU BANEGAS CABLE STRANDER 07/02/24 Reported Medications Folic Acid/Vitamin B Comp W-C (Luciana-Jayme Tablet) 0.8 Mg Tablet, 1 TAB PO DAILY for 30 Days, #30 TAB 0 Refills 06/08/24 Atorvastatin Calcium (Atorvastatin Calcium) 40 Mg Tablet, 40 MG PO HS, TAB 03/05/24 Dutasteride (Dutasteride) 0.5 Mg Capsule, 0.5 MG PO DAILY, CAP 12/14/23 Tamsulosin HCl (Flomax) 0.4 Mg Cap.er.24h, 0.4 MG PO DAILY, CAPSULE. 12/14/23 Past Medical History Past Medical History: Diabetes-Type II, High Cholesterol, Hypertension, Renal Disese, Renal Failure, Other Additional Past Medical Hx: Acute urinary retention Holden catheter indwelling Surgical History: Other Surgical History Other: Diverting ostomy for wound healing purposes Family History: Negative Social History: Negative, Lives with family Review of System Dictation Constitutional: Negative for fever,chills, and weight loss Eyes: Negative for injury, pain,redness, and discharge ENT: Negative for injury,pain or swelling Cardiovascular: Negative for chest pain, palpitations, and edema Respiratory: Negative for shortness of breath, cough, and wheezing, Abdomen/GI: Negative for abdominal pain, nausea, vomiting, diarrhea, and constipation Back: Negative for injury and pain : Positive for dysuria negative for hematuria MS/Extremity: Negative for injury and deformity Skin: Negative for rash, and discoloration Neuro: Negative for headache, weakness, numbness, tingling, and seizure Psych: Negative for suicide ideation, homicidal ideation, and hallucinations Initial Vital Sign VS Vital Signs Date Time Temp Pulse Resp B/P (MAP) Pulse Ox O2 Delivery O2 Flow Rate FiO2 08/29/24 14:27 97.9 85 16 136/63 100 Room Air 0 08/29/24 14:48 21 Physical Exam Dictation General: awake, alert, NAD Head/Face: Normocephalic, atraumatic Eyes: PERRL, EOMI, vision at baseline ENT: oral cavity clear, TMs clear, no signs of infection Neck: Trachea midline, supple, no nuchal rigidity Cardiovascular: RRR, normal S1/S2, No MRGs, no JVD Respiratory: CTAB, no respiratory distress, No rales or wheezes Abdomen: Soft, non-tender, non-distended, normal bowel sounds, no guarding or rebound. Skin: Warm, dry, normal turgor, no rash MS/Extremity: Pulses equal, no cyanosis, neurovascular intact, FROM Neuro: COAx4, GCS 15, strength 5/5, CN 2-12 intact, normal cerebellar exam, normal gait, Psych: Normal behavior, mood, and affect normal Results (Laboratory/Radiology) Laboratory/Radiology Laboratory Tests Test 08/29/24 15:44 Urine Color YELLOW (YELLOW) Urine Appearance TURBID (CLEAR) Urine pH 7.0 (5.0-8.0) Urine Specific [place] 1.016 (1.001-1.031) Urine Protein 200 mg/dL (NEGATIVE) H Urine Glucose (UA) NEGATIVE mg/dL (NEGATIVE) Urine Ketones NEGATIVE mg/dL (NEGATIVE) Urine Occult Blood MODERATE (NEGATIVE) H Urine Nitrate NEGATIVE (NEGATIVE) Urine Bilirubin NEGATIVE mg/dL (NEGATIVE) Urine Urobilinogen 0.2 mg/dL (0.2-1.0) Urine Leukocyte Esterase 500 Nora/uL (NEGATIVE) H Urine RBC 26-50 /HPF (0-1) H Urine WBC 26-50 /HPF (0-1) H Urine WBC Clumps (Auto) RARE /HPF (0-1) Urine Squamous Epithelial Cells RARE /HPF (0-2) Urine Other Crystals (Auto) 2 /HPF (None Seen) Urine Bacteria FEW /HPF (None Seen) Urine Yeast FEW /HPF (None Seen) Labs Reviewed?: Yes ED Course ED Course Orders Procedure Category Date Status Time Urinalysis Profile LAB 08/29/24 Complete 14:29 Culture Urine DAVID 08/29/24 Logged 15:54 Vital Signs Date Time Temp Pulse Resp B/P (MAP) Pulse Ox O2 Delivery O2 Flow Rate FiO2 08/29/24 14:48 98.2 90 16 154/56 96 Room Air* 0 21 08/29/24 14:27 97.9 85 16 136/63 100 Room Air 0 Medical Decision Making MDM MDM: Differential diagnosis: UTI, cystitis Previous outside records reviewed: Old ER visits. Need for hospitalization: Patient does not meet criteria for hospitalization. Need for emergency major/minor surgery: No Patient's prior external medical records from other ER visits were reviewed by me as indicated. Prior testing and results from previous visits were reviewed. Prior tests were taken into account with medical decision making and resource utilization, independent historian/historians were used to obtain complete medical history. I independently interpreted the test that were performed, results were reviewed by me and considered findings on radiology if ordered. Medical management and examination interpretation discussions were had by me with other qualified healthcare professionals as indicated for the patient's care. DX & DISP Disposition: Discharge Departure Impression: Primary Impression: Cystitis Condition: Stable Scripts Nitrofurantoin/Nitrofuran Mac (Macrobid) 100 Mg Cap 1 CAP PO BID for 7 Days, #14 CAP 0 Refills Prov: FLORENCE DOMÍNGUEZ MD 08/29/24 Referrals: RADHA JARAMILLO MD (PCP) FLORENCE DOMÍNGUEZ MD Aug 29, 2024 15:44
[2024-08-29 15:52] LABS: APPEARANCE,URINE TURBID (CLEAR); BILIRUBIN,URINE NEGATIVE (NEGATIVE); COLOR,URINE YELLOW (YELLOW); GLUCOSE, URINE (UA) NEGATIVE (NEGATIVE); KETONES,URINE NEGATIVE (NEGATIVE); LEUKOCYTE ESTERASE ,URINE 500 Leu/uL (NEGATIVE); NITRATE,URINE NEGATIVE (NEGATIVE); OCCULT BLOOD,URINE MODERATE (NEGATIVE); PROTEIN,URINE 200 mg/dL (NEGATIVE); UROBILINOGEN,URINE 0.2 mg/dL (0.2-1.0)
[2024-08-29 15:53] LABS: ADD UA MICROSCOPIC YES
[2024-08-29 16:00] LABS: BACTERIA,URINE FEW /HPF (None Seen); MUCUS,URINE RARE LPF (None Seen); RBC,URINE 26-50 /HPF (0-1); SQUAMOUS EPITHELIAL CELL,UR RARE /HPF (0-2); UNCLASSIFIED CRYSTAL 2 /HPF (None Seen); WBC CLUMP RARE /HPF (0-1); WBC,URINE 26-50 /HPF (0-1); YEAST,URINE BUDDING FEW /HPF (None Seen)
[2024-08-29] MEDS ORDERED: MACR100 PO (16:08)
[2024-08-29 16:18] VITALS: BP 138/61; PULSE 80; RESP 16; TEMP 98.2; O2SAT 100
== END 2024-08-29 16:19 | disposition home or self-care (01) ==
LOC: EDH 14:24
DX: N30.90 Cystitis, unspecified without hematuria (principal); E11.9 Type 2 diabetes mellitus without complications; E78.00 Pure hypercholesterolemia, unspecified; I10 Essential (primary) hypertension; Z79.899 Other long term (current) drug therapy; Z98.890 Other specified postprocedural states
CPT/HCPCS: 81001; 87086; 87186; 99284

== ENCOUNTER 2024-10-09 11:26 | Emergency (ER) | payer MEDICARE ==
[~2024-10-09] VITALS: Ht 167.6 cm; Wt 79.4 kg
[~2024-10-09 11:26] MED LIST changes: -AMOX1TAB16 PO; -FOLI0.8T22 PO; +INSU100I24 SQ; -SULF1TAB42 PO
[2024-10-09 11:53] LABS: HEMATOCRIT 28.1 % (42-54); MEAN CORPUSCULAR HEMOGLOBIN 31.4 pg (27.0-33.0); MEAN CORPUSCULAR VOLUME 97.9 fL (79-99); RED BLOOD CELL COUNT(AUTO) 2.87 MIL/uL (4.50-6.20); RED CELL DISTRIBUTION WIDTH 14.1 % (11.0-15.5); WHITE BLOOD COUNT (AUTO) 8.1 K/uL (4.8-10.8)
[2024-10-09 12:00] LABS: CREATININE 3.4 mg/dL (0.5-1.3); POTASSIUM 3.8 mmol/L (3.5-5.1)
[2024-10-09 12:08] LABS: APPEARANCE,URINE CLOUDY (CLEAR); BILIRUBIN,URINE NEGATIVE (NEGATIVE); COLOR,URINE RED (YELLOW); GLUCOSE, URINE (UA) 250 mg/dL (NEGATIVE); KETONES,URINE 15 mg/dL (NEGATIVE); LEUKOCYTE ESTERASE ,URINE MODERATE Leu/uL (NEGATIVE); NITRATE,URINE POSITIVE (NEGATIVE); OCCULT BLOOD,URINE LARGE (NEGATIVE); PH,URINE 7.5 (5.0-8.0); PROTEIN,URINE >=300 mg/dL (NEGATIVE)
[2024-10-09 12:10] LABS: ADD UA MICROSCOPIC YES
[2024-10-09 12:19] LABS: RBC,URINE TNTC /HPF (0-1)
[2024-10-09 12:23] LABS: BACTERIA,URINE Few /HPF (None Seen)
--- NOTE | 2024-10-09 12:23 | ERN ---
ED Note History of Present Illness Stated Complaint: BLOOD IN URINE Chief Complaint: Blood in Urine: Time Seen by MD: 11:27 Dictation: PATIENT IS A 59-YEAR-OLD MALE COMING IN WITH HIS WITH A OZUNA CATHETER THAT WAS PLACED AT [facility] IN [facility]. HE STATES HE IS SEEING DR. CHOPRA, UROLOGIST AND SAW HIM THURSDAY. HE STATES HE WAS TOLD HE WOULD BE KEEPING THE URINE AND OZUNA CATHETER. HE HAS HAD NO FEVER NO CHILLS NO NAUSEA VOMITING. STATES HE STARTED HAVING HEMATURIA THIS MORNING. DENIES ANY FLANK PAIN Allergies: Coded Allergies: No Known Drug Allergies (Unverified Allergy, Unknown, 07/14/21) Home Meds Reported Medications Tamsulosin HCl (Flomax) 0.4 Mg Cap.er.24h, 0.4 MG PO DAILY, CAPSULE. 09/12/24 Insulin Degludec (Tresiba Flextouch U-100) 100 Unit/Ml (3 Ml) Insuln.pen, 20 UNITS SQ DAILY 09/12/24 Atorvastatin Calcium (Atorvastatin Calcium) 40 Mg Tablet, 40 MG PO DAILY, TAB 03/05/24 Dutasteride (Dutasteride) 0.5 Mg Capsule, 0.5 MG PO DAILY, CAP 12/14/23 Past Medical History Past Medical History: Diabetes-Type II, High Cholesterol, Hypertension, Renal Disese, Renal Failure, Other Additional Past Medical Hx: Acute urinary retention Ozuna catheter indwelling Surgical History: Other Surgical History Other: Diverting ostomy for wound healing purposes Family History: Negative Social History: Negative, Lives with family RN Note Reviewed/Agreed w/PFSH: Yes Review of System Dictation CONSTITUTIONAL: NEGATIVE EXCEPT FOR HPI HEAD/FACE: NEGATIVE EXCEPT FOR HPI EENT: NEGATIVE EXCEPT FOR HPI RESPIRATORY: NEGATIVE EXCEPT FOR HPI GASTROINTESTINAL/ABDOMINAL: NEGATIVE EXCEPT FOR HPI GENITOURINARY: NEGATIVE EXCEPT FOR HPI HEMATURIA BLOOD IN OZUNA CATHETER BAG MUSCULOSKELETAL: NEGATIVE EXCEPT FOR HPI INTEGUMENTARY: NEGATIVE EXCEPT FOR HPI NEUROLOGICAL/PSYCH: NEGATIVE EXCEPT FOR HPI HEMATOLOGIC/LYMPHATIC: NEGATIVE EXCEPT FOR HPI ALL SYSTEMS NEGATIVE, EXCEPT NOTED ABOVE. 13 POINT REVIEW OF SYSTEMS ASSESSED AND ALL NEGATIVE EXCEPT FOR ABOVE. Initial Vital Sign VS Vital Signs Date Time Temp Pulse Resp B/P (MAP) Pulse Ox O2 Delivery O2 Flow Rate FiO2 10/09/24 11:27 97.5 80 16 134/60 99 Room Air Physical Exam Dictation VITAL SIGNS REVIEWED GENERAL APPEARANCE: ALERT, ORIENTED X 3, NO ACUTE DISTRESS, WELL DEVELOPED, NOURISHED. HEAD AND FACE: NON-TRAUMATIC. EYES: PERRL, PINK CONJUNCTIVAS, EYELID NO TRAUMA, ANTERIOR CHAMBER WITH ARCUS SENILIS. EARS: PINNAS INTACT AND NO SIGNS OF TRAUMA OR ERYTHEMA EAR CANALS CLEAR AND NO DISCHARGE TM NO ERYTHEMA NOSE: NO DISCHARGE, NO BLEEDING. OROPHARYNX: MOUTH NORMAL, TONGUE PINK, PHARYNX CLEAR,NO ERYTHEMA, TONSILS NO EXUDATES, NO ABSCESSES NOTED, MUCOUS MEMBRANE MOIST NECK: SUPPLE, NON-TENDER, NO THYROMEGALY, NO MASSES, NO JVD, NO BRUITS BREAST:DEFERRED CHEST:NO TENDERNESS, NO CREPITUS, NO PARADOXICAL MOVEMENT, NO RETRACTIONS LUNGS:CLEAR, WELL-VENTILATED, SYMMETRIC, NO RALES, NO WHEEZING, NO RHONCHI, NO STRIDOR, GOOD BREATH SOUNDS BILATERALLY HEART: REGULAR RATE, REGULAR RHYTHM, NO MURMUR, NO GALLOPS VASCULAR: NO PERIPHERAL EDEMA, ABDOMEN: SOFT, POSITIVE BOWEL SOUNDS, NONDISTENDED, NO GUARDING, NONTENDER, NO REBOUND, NO MASSES NO HEPATOMEGALY, NO SPLENOMEGALY, NO MAGALLON'S SIGN, NO HERNIAS. RECTAL: DEFERRED GENITAL: DEFERRED OZUNA CATHETER MILDLY HEMATURIA BLOOD IN BAG. NO PELVIC TENDERNESS WITH PALPATION NEGATIVE CVAT BILATERALLY NEUROLOGICAL: NORMAL SPEECH, MOTOR FUNCTION INTACT, SENSORY FUNCTION INTACT MUSCULOSKELETAL: NECK NONTENDER, FULL RANGE OF MOTION, BACK NONTENDER, FULL RANGE OF MOTION, EXTREMITIES: NONTENDER, FULL RANGE OF MOTION SKIN: COLOR PINK, DRY, NO TURGOR, NO RASH, NO LACERATIONS, NO ABRASIONS, NO CONTUSIONS. LYMPHATIC: DEFERRED Results (Laboratory/Radiology) Laboratory/Radiology Laboratory Tests Test 10/09/24 11:38 10/09/24 12:00 White Blood Count 8.1 K/uL (4.8-10.8) Red Blood Count 2.87 MIL/uL (4.50-6.20) L Hemoglobin 9.0 g/dL (14.0-18.0) L Hematocrit 28.1 % (42-54) L Mean Corpuscular Volume 97.9 fL (79-99) Mean Corpuscular Hemoglobin 31.4 pg (27.0-33.0) Mean Corpuscular Hemoglobin Concent 32.0 g/dL (32.0-36.0) Red Cell Distribution Width 14.1 % (11.0-15.5) Platelet Count 229 K/uL (130-400) Mean Platelet Volume 9.8 fL (7.5-10.5) Nucleated Red Blood Cells 0.0 % (0.0-0.19) Sodium Level 141 mmol/L (136-145) Potassium Level 3.8 mmol/L (3.5-5.1) Chloride Level 103 mmol/L (101-111) Carbon Dioxide Level 36 mmol/L (21-32) H Blood Urea Nitrogen 25 mg/dL (7-18) H Creatinine 3.4 mg/dL (0.5-1.3) H Glomerular Filtration Rate Calc 20 mL/min (>90) Random Glucose 199 mg/dL (70-105) H Total Calcium 8.6 mg/dL (8.5-10.1) Urine Color RED (YELLOW) Urine Appearance CLOUDY (CLEAR) H Urine pH 7.5 (5.0-8.0) Urine Specific [place] 1.020 (1.001-1.031) Urine Protein >=300 mg/dL (NEGATIVE) H Urine Glucose (UA) 250 mg/dL (NEGATIVE) H Urine Ketones 15 mg/dL (NEGATIVE) H Urine Occult Blood LARGE (NEGATIVE) H Urine Nitrate POSITIVE (NEGATIVE) H Urine Bilirubin NEGATIVE mg/dL (NEGATIVE) Urine Urobilinogen 2.0 mg/dL (0.2-1.0) H Urine Leukocyte Esterase MODERATE Nora/uL Urine RBC TNTC /HPF (0-1) H Urine WBC 2-5 /HPF (0-1) H Urine Bacteria Few /HPF (None Seen) Labs Reviewed?: Yes ED Course ED Course Orders Procedure Category Date Status Time Urinalysis Profile LAB 10/09/24 Complete 11:30 Cbc Without LAB 10/09/24 Complete Differential 11:30 Basic Metabolic Panel LAB 10/09/24 Complete 11:30 Culture Urine DAVID 10/09/24 In Process 12:10 Amox/Clav 875/125mg PHA 10/09/24 In Process Tab (Augmentin 875-1 15:00 Vital Signs Date Time Temp Pulse Resp B/P (MAP) Pulse Ox O2 Delivery O2 Flow Rate FiO2 10/09/24 11:27 97.5 80 16 134/60 99 Room Air 1500/PATIENT HAS A URINARY TRACT INFECTION WITH HEMATURIA WE WILL BE GIVEN AUGMENTIN 875. DISCHARGED HOME WITH PRESCRIPTION FOR AUGMENTIN TOLD TO SEE HIS UROLOGIST AT [facility] IN THE NEXT 2-3 DAYS. Medical Decision Making MDM MEDICAL DISCHARGE MAKING BASED ON URINALYSIS AND BASIC LABS PATIENT HAS STAGE FOUR CHRONIC KIDNEY DISEASE, THIS IS UNCHANGED FROM HIS PRIOR VISITS. HE HAS A ACUTE CYSTITIS WITH HEMATURIA PATIENT WAS GIVEN [id number] AND SENT HOME WITH PRESCRIPTION TOLD INCREASE HIS FLUIDS AND SEE HIS UROLOGIST IN THE NEXT 2-3 DAYS. DX & DISP Disposition: Discharge Departure Impression: Primary Impression: Acute cystitis with hematuria Additional Impressions: Stage 4 chronic kidney disease, Ozuna catheter in place Condition: Stable Scripts Amoxicillin/Potassium Clav (Amox Tr-K Clv 875-125 mg Tab) 875 Mg-125 Mg Tablet 1 EACH PO BID for 7 Days, #14 TAB 0 Refills Prov: AMADOU BANEGAS NP 10/09/24 Additional Instructions: FOLLOW-UP WITH PRIMARY CARE PROVIDER IN 1 TO 2 DAYS. TAKE MEDICATIONS DIRECTED HERE IN THE EMERGENCY ROOM. OKAY TO CONTINUE HOME MEDICATIONS UNLESS OTHERWISE DISCUSSED DURING YOUR VISIT IN THE EMERGENCY ROOM TODAY. RETURN TO YOUR NEAREST EMERGENCY ROOM IF SYMPTOMS WORSEN OR IF THERE IS NO IMPROVEMENT. CALL 911 IF YOU NEED IMMEDIATE ASSISTANCE. TAKE TYLENOL OR MOTRIN [id number] NEEDED AND IF NO CONTRAINDICATIONS ARE PRESENT. INCREASE ORAL HYDRATION. A WOUND CULTURE OR URINE CULTURE WAS ORDERED HERE IN THE EMERGENCY ROOM DEPARTMENT PLEASE FOLLOW-UP WITH PRIMARY CARE PROVIDER AND ADVISE THEM TO GET REPEAT PORTS FROM OUR FACILITY. IF YOU HAD ANY JOSÉ WRAP/SPLINTS THAT WERE APPLIED HERE, PLEASE DO NOT REMOVE THEM UNTIL YOU SEE YOUR PRIMARY CARE OR SPECIALTY. INCREASE YOUR WATER INTAKE. TAKE AUGMENTIN DIRECTED UNTIL GONE. FOLLOW UP WITH YOUR UROLOGIST IN THE NEXT 2-3 DAYS. Referrals: RADHA JARAMILLO MD (PCP) Time of Disposition: 15:02 I have reviewed the case, and I agree with, Diagnosis and Plan AMADOU BANEGAS NP Oct 09, 2024 12:23
[2024-10-09] MEDS ORDERED: AMOX1TAB16 PO (15:03)
[2024-10-09 15:25] VITALS: BP 132/61; PULSE 76; RESP 16; TEMP 98; O2SAT 99
[2024-10-09] MEDS: AMOX/CLAV 875/125MG TAB PO ONE (15:29)
== END 2024-10-09 15:31 | disposition home or self-care (01) ==
LOC: EDH 11:26
DX: N30.01 Acute cystitis with hematuria (principal); I12.9 Hypertensive chronic kidney disease with stage 1 through stage 4 chronic kidney disease, or unspecified chronic kidney disease; E11.22 Type 2 diabetes mellitus with diabetic chronic kidney disease; N18.4 Chronic kidney disease, stage 4 (severe); E78.00 Pure hypercholesterolemia, unspecified; Z79.4 Long term (current) use of insulin; Z79.899 Other long term (current) drug therapy; Z96.0 Presence of urogenital implants
CPT/HCPCS: 36415; 80048; 81001; 85027; 87086; 87186; 99283

== ENCOUNTER 2024-10-11 07:18 | Emergency (ER) | payer MEDICARE ==
[~2024-10-11] VITALS: Ht 167.6 cm; Wt 79.4 kg
[~2024-10-11 07:18] MED LIST changes: +AMOX1TAB16 PO
--- NOTE | 2024-10-11 08:43 | NUR ---
PLACED IN [facility]
--- NOTE | 2024-10-11 08:44 | HMCIMG ---
CT ABD/PEL WO CON RENAL/APPY REASON: flank pain COMPARISON: 03/05/2024 FINDINGS: Lung bases are clear. There are no focal liver lesions. The liver does not appear enlarged.. Spleen and pancreas appear unremarkable. The gallbladder appears normal as well. There is a 7.5 cm mass upper pole right kidney consistent with patient's known hypernephroma. Overall size and appearance is not significantly changed since 03/05/2024. Left kidney remains unremarkable. There are is no hydronephrosis. There is some high attenuation material within the right ureter which may be blood. There is a 7.4 x 5.9 cm blood clot in the dependent portion of the bladder. Bladder appears mildly to moderately distended, the Holden catheter tip and retaining balloon are pleasant with in the blood clot. The suprapubic Holden catheter appears otherwise unremarkable. Bowel loops appear unremarkable. There is no CT evidence of acute appendicitis. There is no evidence of free fluid or intraperitoneal air. There are no focal fluid collections. Aorta and retroperitoneum appear normal. There is no retroperitoneal or pelvic lymphadenopathy. Pelvic soft tissues appear otherwise unremarkable. The anterior abdominal wall is intact. Osseous structures appear unremarkable. IMPRESSION: 1. Large mass upper pole right kidney consistent with patient's known hypernephroma, not significantly changed since prior exam. 2. There is high attenuation material in the right ureter as well as in the urinary bladder consistent with blood clot, there is a 5.9 x 7.4 cm clot in the dependent portion of the bladder, the suprapubic Holden catheter tip and retaining balloon are present within the blood clot. 3. Bladder appears moderately distended. 4. Otherwise unremarkable exam. CT was performed with one or more following dose reduction techniques: automated exposure control, adjustment of the mA and kv according to patient's size, or use of a iterative reconstruction technique.
[2024-10-11 09:14] LABS: BASOPHILS # (AUTO) 0.05 K/uL (0.00-0.20); BASOPHILS % (AUTO) 0.5 % (0.0-5.0); EOSINOPHILS # (AUTO) 0.37 K/uL (0.00-0.70); EOSINOPHILS % (AUTO) 3.9 % (0.0-8.0); HEMATOCRIT 26.8 % (42-54); IMMATURE GRANULOCYTE ABSOLUTE 0.03 K/uL (0-1); LYMPHOCYTES # (AUTO) 1.5 K/uL (1.0-4.8); LYMPHOCYTES % (AUTO) 15.5 % (21.0-51.0); MEAN CORPUSCULAR HEMOGLOBIN 32.2 pg (27.0-33.0); MEAN CORPUSCULAR HGB CONC 32.1 g/dL (32.0-36.0); MEAN CORPUSCULAR VOLUME 100.4 fL (79-99); MONOCYTES # (AUTO) 0.6 K/uL (0.1-1.0); MONOCYTES % (AUTO) 6.7 % (3.0-13.0); NEUTROPHILS % (AUTO) 73.1 % (40.0-77.0); PLATELET COUNT (AUTO) 227 K/uL (130-400); RED BLOOD CELL COUNT(AUTO) 2.67 MIL/uL (4.50-6.20); RED CELL DISTRIBUTION WIDTH 14.6 % (11.0-15.5); WHITE BLOOD COUNT (AUTO) 9.5 K/uL (4.8-10.8)
[2024-10-11 09:33] LABS: CREATININE 4.8 mg/dL (0.5-1.3); POTASSIUM 4.4 mmol/L (3.5-5.1)
--- NOTE | 2024-10-11 09:44 | ERN ---
ED Note History of Present Illness Stated Complaint: BLOOD IN URINE Chief Complaint: Blood in Urine: Time Seen by MD: 07:20 Dictation: 59-year-old male with a history of right chronic renal mass presents to the ED for evaluation of hematuria onset 2 days ago. Patient reports he has had a suprapubic catheter for the past six months and states he was seen two days ago due to noticing blood in his catheter and was prescribed antibiotics, but mentioned symptoms have not been improving. Patient denies any fever or other associated symptoms at this time. Allergies: Coded Allergies: No Known Drug Allergies (Unverified Allergy, Unknown, 07/14/21) Home Meds Active Scripts Amoxicillin/Potassium Clav (Amox Tr-K Clv 875-125 mg Tab) 875 Mg-125 Mg Tablet, 1 EACH PO BID for 7 Days, #14 TAB 0 Refills Prov:AMADOU BANEGAS BL[employer] HELPER 10/09/24 Reported Medications Tamsulosin HCl (Flomax) 0.4 Mg Cap.er.24h, 0.4 MG PO DAILY, CAPSULE. 09/12/24 Insulin Degludec (Tresiba Flextouch U-100) 100 Unit/Ml (3 Ml) Insuln.pen, 20 UNITS SQ DAILY 09/12/24 Atorvastatin Calcium (Atorvastatin Calcium) 40 Mg Tablet, 40 MG PO DAILY, TAB 03/05/24 Dutasteride (Dutasteride) 0.5 Mg Capsule, 0.5 MG PO DAILY, CAP 12/14/23 Past Medical History Past Medical History: Diabetes-Type II, High Cholesterol, Hypertension, Renal Disese, Renal Failure, Other Additional Past Medical Hx: Acute urinary retention Holden catheter indwelling Surgical History: Other Surgical History Other: Diverting ostomy for wound healing purposes Family History: Negative Social History: Negative, Lives with family Review of System Dictation Constitutional: Negative for fever,chills, and weight loss Eyes: Negative for injury, pain,redness, and discharge ENT: Negative for injury,pain or swelling Cardiovascular: Negative for chest pain, palpitations, and edema Respiratory: Negative for shortness of breath, cough, and wheezing, Abdomen/GI: Negative for abdominal pain, nausea, vomiting, diarrhea, and constipation Back: Negative for injury and pain : Positive for hematuria Negative for injury and discharge MS/Extremity: Negative for injury and deformity Skin: Negative for rash, and discoloration Neuro: Negative for headache, weakness, numbness, tingling, and seizure Psych: Negative for suicide ideation, homicidal ideation, and hallucinations Initial Vital Sign VS Vital Signs Date Time Temp Pulse Resp B/P (MAP) Pulse Ox O2 Delivery O2 Flow Rate FiO2 10/11/24 07:19 98.8 90 20 143/62 100 Room Air 0 10/11/24 08:45 21 Physical Exam Dictation General: awake, alert, NAD Head/Face: Normocephalic, atraumatic Eyes: PERRL, EOMI, vision at baseline ENT: oral cavity clear, TMs clear, no signs of infection Neck: Trachea midline, supple, no nuchal rigidity Cardiovascular: RRR, normal S1/S2, No MRGs, no JVD Respiratory: CTAB, no respiratory distress, No rales or wheezes Abdomen: Soft, non-tender, non-distended, normal bowel sounds, blood in suprapubic catheter Skin: Warm, dry, normal turgor, no rash MS/Extremity: Pulses equal, no cyanosis, neurovascular intact, FROM Neuro: COAx4, GCS 15, strength 5/5, CN 2-12 intact, normal cerebellar exam, normal gait, Psych: Normal behavior, mood, and affect normal Results (Laboratory/Radiology) Laboratory/Radiology Laboratory Tests Test 10/11/24 08:59 White Blood Count 9.5 K/uL (4.8-10.8) Red Blood Count 2.67 MIL/uL (4.50-6.20) L Hemoglobin 8.6 g/dL (14.0-18.0) L Hematocrit 26.8 % (42-54) L Mean Corpuscular Volume 100.4 fL (79-99) H Mean Corpuscular Hemoglobin 32.2 pg (27.0-33.0) Mean Corpuscular Hemoglobin Concent 32.1 g/dL (32.0-36.0) Red Cell Distribution Width 14.6 % (11.0-15.5) Platelet Count 227 K/uL (130-400) Mean Platelet Volume 10.1 fL (7.5-10.5) Immature Granulocyte % (Auto) 0.3 % (0-1) Neutrophils (%) (Auto) 73.1 % (40.0-77.0) Lymphocytes (%) (Auto) 15.5 % (21.0-51.0) L Monocytes (%) (Auto) 6.7 % (3.0-13.0) Eosinophils (%) (Auto) 3.9 % (0.0-8.0) Basophils (%) (Auto) 0.5 % (0.0-5.0) Neutrophils # (Auto) 7.0 K/uL (1.8-7.7) Lymphocytes # (Auto) 1.5 K/uL (1.0-4.8) Monocytes # (Auto) 0.6 K/uL (0.1-1.0) Eosinophils # (Auto) 0.37 K/uL (0.00-0.70) Basophils # (Auto) 0.05 K/uL (0.00-0.20) Absolute Immature Granulocyte (auto 0.03 K/uL (0-1) Nucleated Red Blood Cells 0.0 % (0.0-0.19) Sodium Level 136 mmol/L (136-145) Potassium Level 4.4 mmol/L (3.5-5.1) Chloride Level 99 mmol/L (101-111) L Carbon Dioxide Level 29 mmol/L (21-32) Blood Urea Nitrogen 46 mg/dL (7-18) H Creatinine 4.8 mg/dL (0.5-1.3) H Glomerular Filtration Rate Calc 13 mL/min (>90) Random Glucose 177 mg/dL (70-105) H Total Calcium 8.6 mg/dL (8.5-10.1) Labs Reviewed?: Yes ED Course ED Course Orders Procedure Category Date Status Time Basic Metabolic Panel LAB 10/11/24 Complete 07:35 Cbc With Differential LAB 10/11/24 Complete 07:35 Urinalysis Profile LAB 10/11/24 Logged 07:35 Ct Abd/Pel Wo Con CT 10/11/24 Resulted Renal/Appy 07:35 Vital Signs Date Time Temp Pulse Resp B/P (MAP) Pulse Ox O2 Delivery O2 Flow Rate FiO2 10/11/24 08:45 98.8 97 16 143/62 98 Room Air* 0 21 10/11/24 07:19 98.8 90 20 143/62 100 Room Air 0 Medical Decision Making MDM MDM: Differential diagnosis: Holden catheter, hematuria Risk of complication and/or morbidity or mortality of patient management: None Medications-Per medication reconciliation Need for hospitalization: Patient does not meet criteria for hospitalization. Need for emergency major/minor surgery: No There are no social concerns with this patient. I independently interpreted the test that were performed, results were reviewed by me and considered findings on radiology if ordered. DX & DISP Disposition: Discharge Departure Impression: Primary Impression: Hematuria Additional Impression: Holden catheter in place Condition: Stable Referrals: RADHA JARAMILLO MD (PCP) FLORENCE DOMÍNGUEZ MD Oct 11, 2024 09:44
--- NOTE | 2024-10-11 10:23 | NUR ---
BLADDER IRRIGATION COMPLETED WITH 2 L OF NORMAL SALINE FOR IRRIGATION VIA SUPRAPUBIC CATHETER.LOTS OF CLOTS REMOVED,OUTPUT NOW PIN/RED TINGED.PT TOLERATED PROCEDURE WELL.
[2024-10-11 10:55] VITALS: BP 114/61; PULSE 97; RESP 16; TEMP 97.9; O2SAT 100
== END 2024-10-11 10:55 | disposition home or self-care (01) ==
LOC: EDH 07:18
DX: R31.9 Hematuria, unspecified (principal); E11.9 Type 2 diabetes mellitus without complications; E78.00 Pure hypercholesterolemia, unspecified; I10 Essential (primary) hypertension; Z79.4 Long term (current) use of insulin; Z79.899 Other long term (current) drug therapy; Z96.0 Presence of urogenital implants
CPT/HCPCS: 36415; 74176; 80048; 85025; 99284

== ENCOUNTER 2025-02-18 10:18 | Emergency (ER) | payer MEDICARE ==
[~2025-02-18] VITALS: Ht 167.6 cm; Wt 82.6 kg
[~2025-02-18 10:18] MED LIST changes: -TAMS-1 PO; +TAMS-55 PO
--- NOTE | 2025-02-18 10:27 | ERN ---
ED Note History of Present Illness Stated Complaint: BLOOD URINE Chief Complaint: Blood in Urine: Time Seen by MD: 10:21 Dictation: PATIENT IS A 59-YEAR-OLD MALE COMING IN WITH HEMATURIA IN HIS OZUNA CATHETER, HE HAS HAD THE OZUNA CATHETER FOR ONE YEAR. HE HAS A HISTORY OF HYPERTENSION DIABETES ESRD WITH HEMODIALYSIS TTS, WENT TO HEMODIALYSIS THIS MORNING AND COMPLETED IT. HE HAS HAD NO FEVER NO CHILLS. STATES THE BLOOD STARTED 3-4 DAYS AGO, SAW HIS PRIMARY CARE DOCTOR WHO PLACED HIM ON MACROBID. HE STATES HE TOLD THE DOCTOR HE NEEDED SOMETHING STRONGER THAT WAS ONLY A ONCE A DAY DOSING. Allergies: Coded Allergies: No Known Drug Allergies (Unverified Allergy, Unknown, 07/14/21) Home Meds Active Scripts Amoxicillin/Potassium Clav (Amox Tr-K Clv 875-125 mg Tab) 875 Mg-125 Mg Tablet, 1 EACH PO BID for 7 Days, #14 TAB 0 Refills Prov:AMADOU BANEGAS NP 10/09/24 Reported Medications Tamsulosin HCl (Flomax) 0.4 Mg Cap.er.24h, 0.4 MG PO DAILY, CAPSULE. 09/12/24 Insulin Degludec (Tresiba Flextouch U-100) 100 Unit/Ml (3 Ml) Insuln.pen, 20 UNITS SQ DAILY 09/12/24 Atorvastatin Calcium (Atorvastatin Calcium) 40 Mg Tablet, 40 MG PO DAILY, TAB 03/05/24 Dutasteride (Dutasteride) 0.5 Mg Capsule, 0.5 MG PO DAILY, CAP 12/14/23 Past Medical History Past Medical History: Diabetes-Type II, High Cholesterol, Hypertension, Renal Disese, Renal Failure, Other Additional Past Medical Hx: Acute urinary retention Ozuna catheter indwelling Surgical History: Other Surgical History Other: Diverting ostomy for wound healing purposes Family History: Negative Social History: Negative, Lives with family RN Note Reviewed/Agreed w/PFSH: Yes Review of System Dictation CONSTITUTIONAL: NEGATIVE EXCEPT FOR HPI HEAD/FACE: NEGATIVE EXCEPT FOR HPI EENT: NEGATIVE EXCEPT FOR HPI RESPIRATORY: NEGATIVE EXCEPT FOR HPI GASTROINTESTINAL/ABDOMINAL: NEGATIVE EXCEPT FOR HPI GENITOURINARY: NEGATIVE EXCEPT FOR HPI OZUNA CATHETER WAS HEMATURIA URINE MUSCULOSKELETAL: NEGATIVE EXCEPT FOR HPI INTEGUMENTARY: NEGATIVE EXCEPT FOR HPI NEUROLOGICAL/PSYCH: NEGATIVE EXCEPT FOR HPI HEMATOLOGIC/LYMPHATIC: NEGATIVE EXCEPT FOR HPI ALL SYSTEMS NEGATIVE, EXCEPT NOTED ABOVE. 13 POINT REVIEW OF SYSTEMS ASSESSED AND ALL NEGATIVE EXCEPT FOR ABOVE. Initial Vital Sign VS Vital Signs Date Time Temp Pulse Resp B/P (MAP) Pulse Ox O2 Delivery O2 Flow Rate FiO2 02/18/25 10:21 97.2 79 16 158/58 100 Room Air 0 02/18/25 10:25 21 Physical Exam Dictation VITAL SIGNS REVIEWED GENERAL APPEARANCE: ALERT, ORIENTED X 3, NO ACUTE DISTRESS, WELL DEVELOPED, NOURISHED. HEAD AND FACE: NON-TRAUMATIC. EYES: PERRL, PINK CONJUNCTIVAS, EYELID NO TRAUMA, ANTERIOR CHAMBER WITH ARCUS SENILIS. EARS: PINNAS INTACT AND NO SIGNS OF TRAUMA OR ERYTHEMA EAR CANALS CLEAR AND NO DISCHARGE TM NO ERYTHEMA NOSE: NO DISCHARGE, NO BLEEDING. OROPHARYNX: MOUTH NORMAL, TONGUE PINK, PHARYNX CLEAR,NO ERYTHEMA, TONSILS NO EXUDATES, NO ABSCESSES NOTED, MUCOUS MEMBRANE MOIST NECK: SUPPLE, NON-TENDER, NO THYROMEGALY, NO MASSES, NO JVD, NO BRUITS BREAST:DEFERRED CHEST:NO TENDERNESS, NO CREPITUS, NO PARADOXICAL MOVEMENT, NO RETRACTIONS LUNGS:CLEAR, WELL-VENTILATED, SYMMETRIC, NO RALES, NO WHEEZING, NO RHONCHI, NO STRIDOR, GOOD BREATH SOUNDS BILATERALLY HEART: REGULAR RATE, REGULAR RHYTHM, NO MURMUR, NO GALLOPS VASCULAR: NO PERIPHERAL EDEMA, ABDOMEN: SOFT, POSITIVE BOWEL SOUNDS, NONDISTENDED, NO GUARDING, NONTENDER, NO REBOUND, NO MASSES NO HEPATOMEGALY, NO SPLENOMEGALY, NO MAGALLON'S SIGN, NO HERNIAS. NO SUPRAPUBIC PAIN RECTAL: DEFERRED GENITAL: OZUNA CATHETER IN PLACE WITH SMALL AMOUNT OF HEMATURIA URINE IN BAG. NEUROLOGICAL: NORMAL SPEECH, MOTOR FUNCTION INTACT, SENSORY FUNCTION INTACT MUSCULOSKELETAL: NECK NONTENDER, FULL RANGE OF MOTION, BACK NONTENDER, FULL RANGE OF MOTION, EXTREMITIES: NONTENDER, FULL RANGE OF MOTION SKIN: COLOR PINK, DRY, NO TURGOR, NO RASH, NO LACERATIONS, NO ABRASIONS, NO CONTUSIONS. LYMPHATIC: DEFERRED Results (Laboratory/Radiology) Laboratory/Radiology Laboratory Tests Test 02/18/25 10:32 02/18/25 12:00 White Blood Count 7.5 K/uL (4.8-10.8) Red Blood Count 4.44 MIL/uL (4.50-6.20) L Hemoglobin 13.5 g/dL (14.0-18.0) L Hematocrit 39.0 % (42-54) L Mean Corpuscular Volume 87.8 fL (79-99) Mean Corpuscular Hemoglobin 30.4 pg (27.0-33.0) Mean Corpuscular Hemoglobin Concent 34.6 g/dL (32.0-36.0) Red Cell Distribution Width 14.6 % (11.0-15.5) Platelet Count 168 K/uL (130-400) Mean Platelet Volume 10.0 fL (7.5-10.5) Immature Granulocyte % (Auto) 0.4 % (0-1) Neutrophils (%) (Auto) 67.2 % (40.0-77.0) Lymphocytes (%) (Auto) 23.0 % (21.0-51.0) Monocytes (%) (Auto) 5.8 % (3.0-13.0) Eosinophils (%) (Auto) 2.7 % (0.0-8.0) Basophils (%) (Auto) 0.9 % (0.0-5.0) Neutrophils # (Auto) 5.1 K/uL (1.8-7.7) Lymphocytes # (Auto) 1.7 K/uL (1.0-4.8) Monocytes # (Auto) 0.4 K/uL (0.1-1.0) Eosinophils # (Auto) 0.20 K/uL (0.00-0.70) Basophils # (Auto) 0.07 K/uL (0.00-0.20) Absolute Immature Granulocyte (auto 0.03 K/uL (0-1) Nucleated Red Blood Cells 0.0 % (0.0-0.19) Sodium Level 131 mmol/L (136-145) L Potassium Level 3.8 mmol/L (3.5-5.1) Chloride Level 93 mmol/L (101-111) L Carbon Dioxide Level 32 mmol/L (21-32) Blood Urea Nitrogen 25 mg/dL (7-18) H Creatinine 2.5 mg/dL (0.5-1.3) H Glomerular Filtration Rate Calc 29 mL/min (>90) Random Glucose 178 mg/dL (70-105) H Total Calcium 9.1 mg/dL (8.5-10.1) Urine Color RED (YELLOW) H Urine Appearance TURBID (CLEAR) H Urine pH 8.0 (5.0-8.0) Urine Specific [place] 1.020 (1.001-1.031) Urine Protein >=300 mg/dL (NEGATIVE) H Urine Glucose (UA) 100 mg/dL (NEGATIVE) H Urine Ketones 5 mg/dL (NEGATIVE) H Urine Occult Blood LARGE (NEGATIVE) H Urine Nitrate POSITIVE (NEGATIVE) H Urine Bilirubin NEGATIVE mg/dL (NEGATIVE) Urine Urobilinogen 1.0 mg/dL (0.2-1.0) Urine Leukocyte Esterase SMALL Nora/uL (NEGATIVE) H Urine RBC TNTC /HPF (0-1) H Urine WBC 2-5 /HPF (0-1) H Urine Squamous Epithelial Cells 0-2 /HPF (0-2) Urine Bacteria Moderate /HPF (None Seen) H Labs Reviewed?: Yes ED Course ED Course Orders Procedure Category Date Status Time Cbc With Differential LAB 02/18/25 Complete 10:24 Urinalysis Profile LAB 02/18/25 Complete 10:24 Basic Metabolic Panel LAB 02/18/25 Complete 10:24 Culture Urine DAVID 02/18/25 In Process 12:50 Levofloxacin 500mg PHA 02/18/25 Transmitted Tab (Levaquin 500mg T 13:30 Vital Signs Date Time Temp Pulse Resp B/P (MAP) Pulse Ox O2 Delivery O2 Flow Rate FiO2 02/18/25 11:30 96.8 66 16 151/53 98 Room Air* 0 21 02/18/25 10:25 97.2 79 16 158/58 100 Room Air* 0 21 02/18/25 10:21 97.2 79 16 158/58 100 Room Air 0 1310/PATIENT CONTINUE HAS A ACUTE CYSTITIS WITH HEMATURIA. WE WILL STOP NITROFURANTOIN AND START HIM ON LEVAQUIN TODAY 500 MG, THEN 250 Q.O.D. FOR 10 DAYS. Medical Decision Making MDM MEDICAL DECISION-MAKING BASIC LABS AND URINALYSIS. PATIENT HAS A LARGE CYSTITIS WITH HEMATURIA. DIAGNOSIS WE WILL BE OUTPATIENT TREATMENT FAILURE LEVAQUIN 500 WE WILL BE INITIATED LEVAQUIN 250 WE WILL BE PRESCRIBED Q.O.D. FOR THE NEXT 10 DAYS. FOLLOW UP WITH HIS DX & DISP Disposition: Discharge Departure Impression: Primary Impression: Acute cystitis with hematuria Additional Impressions: Indwelling Ozuna catheter present, Failure of outpatient treatment, ESRD (end stage renal disease) on dialysis Condition: Stable Scripts Levofloxacin (Levofloxacin) 500 Mg Tablet 500 MG PO QODAY for 10 Days, #5 TAB Prov: AMADOU BANEGAS NP 02/18/25 Additional Instructions: FOLLOW-UP WITH PRIMARY CARE PROVIDER IN 1 TO 2 DAYS. TAKE MEDICATIONS DIRECTED HERE IN THE EMERGENCY ROOM. OKAY TO CONTINUE HOME MEDICATIONS UNLESS OTHERWISE DISCUSSED DURING YOUR VISIT IN THE EMERGENCY ROOM TODAY. RETURN TO YOUR NEAREST EMERGENCY ROOM IF SYMPTOMS WORSEN OR IF THERE IS NO IMPROVEMENT. CALL 911 IF YOU NEED IMMEDIATE ASSISTANCE. TAKE TYLENOL OR MOTRIN [id number] NEEDED AND IF NO CONTRAINDICATIONS ARE PRESENT. INCREASE ORAL HYDRATION. A WOUND CULTURE OR URINE CULTURE WAS ORDERED HERE IN THE EMERGENCY ROOM DEPARTMENT PLEASE FOLLOW-UP WITH PRIMARY CARE PROVIDER AND ADVISE THEM TO GET REPEAT PORTS FROM OUR FACILITY. IF YOU HAD ANY JOSÉ WRAP/SPLINTS THAT WERE APPLIED HERE, PLEASE DO NOT REMOVE THEM UNTIL YOU SEE YOUR PRIMARY CARE OR SPECIALTY. STOP MACROBID. TAKE LEVAQUIN 500 MG EVERY OTHER DAY FOR THE NEXT 10 DAYS. SEE YOUR PRIMARY CARE DOCTOR FOR FOLLOW UP AND MANAGEMENT. Referrals: RADHA JARAMILLO MD (PCP) Time of Disposition: 13:13 I have reviewed the case, and I agree with, Diagnosis and Plan AMADOU BANEGAS NP Feb 18, 2025 10:27
[2025-02-18 10:38] LABS: BASOPHILS # (AUTO) 0.07 K/uL (0.00-0.20); BASOPHILS % (AUTO) 0.9 % (0.0-5.0); EOSINOPHILS % (AUTO) 2.7 % (0.0-8.0); IMMATURE GRANULOCYTE ABSOLUTE 0.03 K/uL (0-1); LYMPHOCYTES # (AUTO) 1.7 K/uL (1.0-4.8); MEAN CORPUSCULAR HEMOGLOBIN 30.4 pg (27.0-33.0); MEAN CORPUSCULAR HGB CONC 34.6 g/dL (32.0-36.0); MEAN CORPUSCULAR VOLUME 87.8 fL (79-99); MONOCYTES # (AUTO) 0.4 K/uL (0.1-1.0); MONOCYTES % (AUTO) 5.8 % (3.0-13.0); NEUTROPHILS # (AUTO) 5.1 K/uL (1.8-7.7); NEUTROPHILS % (AUTO) 67.2 % (40.0-77.0); PLATELET COUNT (AUTO) 168 K/uL (130-400); RED BLOOD CELL COUNT(AUTO) 4.44 MIL/uL (4.50-6.20); RED CELL DISTRIBUTION WIDTH 14.6 % (11.0-15.5); WHITE BLOOD COUNT (AUTO) 7.5 K/uL (4.8-10.8)
[2025-02-18 10:46] LABS: CREATININE 2.5 mg/dL (0.5-1.3); POTASSIUM 3.8 mmol/L (3.5-5.1)
[2025-02-18 12:27] LABS: APPEARANCE,URINE TURBID (CLEAR); COLOR,URINE RED (YELLOW)
[2025-02-18 12:45] LABS: BILIRUBIN,URINE NEGATIVE (NEGATIVE); GLUCOSE, URINE (UA) 100 mg/dL (NEGATIVE); KETONES,URINE 5 mg/dL (NEGATIVE); LEUKOCYTE ESTERASE ,URINE SMALL Leu/uL (NEGATIVE); NITRATE,URINE POSITIVE (NEGATIVE); OCCULT BLOOD,URINE LARGE (NEGATIVE); PROTEIN,URINE >=300 mg/dL (NEGATIVE)
[2025-02-18 12:49] LABS: ADD UA MICROSCOPIC YES
[2025-02-18 13:08] LABS: BACTERIA,URINE Moderate /HPF (None Seen); RBC,URINE TNTC /HPF (0-1)
[2025-02-18 13:09] LABS: SQUAMOUS EPITHELIAL CELL,UR 0-2 /HPF (0-2)
[2025-02-18] MEDS ORDERED: LEVO-70 PO (13:15)
[2025-02-18] MEDS: levoFLOXacin 500 MG TABLET PO ONE (13:24)
[2025-02-18 13:25] VITALS: BP 147/58; PULSE 67; RESP 16; TEMP 96.8; O2SAT 100
== END 2025-02-18 13:24 | disposition home or self-care (01) ==
LOC: EDH 10:18
DX: I12.0 Hypertensive chronic kidney disease with stage 5 chronic kidney disease or end stage renal disease (principal); E11.22 Type 2 diabetes mellitus with diabetic chronic kidney disease; N18.6 End stage renal disease; N30.01 Acute cystitis with hematuria; E78.00 Pure hypercholesterolemia, unspecified; Z79.4 Long term (current) use of insulin; Z79.899 Other long term (current) drug therapy; Z99.2 Dependence on renal dialysis
CPT/HCPCS: 36415; 80048; 81001; 85025; 87086; 87186; 99283

== ENCOUNTER 2025-04-19 10:32 | Inpatient (IN) | payer MEDICARE ==
[~2025-04-19] VITALS: Ht 167.6 cm; Wt 80.2 kg
[~2025-04-19 10:32] MED LIST changes: +LEVO-70 PO
--- NOTE | 2025-04-19 10:44 | ERN ---
ED Note History of Present Illness Stated Complaint: MULTIPLE SYMPTOMS Chief Complaint: Multiple Complaints Time Seen by MD: 10:37 Dictation: PATIENT IS A 59-YEAR-OLD MALE COMING IN TODAY WITH FEVER CHILLS AND HEMATURIA FROM A SUPRAPUBIC CATHETER ONSET YESTERDAY. HE HAS HAD NAUSEA VOMITING. HISTORY OF DIABETES HYPERTENSION CAD AND END-STAGE RENAL DISEASE. HEMODIALYSIS IS TTS, HE WENT YESTERDAY AND COMPLETED IT. PATIENT OF DR. JACK AND Kua DOES STATE THAT THEY HAVE NOT SEEN SINCE THE ONSET OF SUPRAPUBIC CATHETER. SHE DOES STATE THAT THEY JUST CAME FROM [place] AWAY WENT TO [facility] IMAGING FOR A MRI OF HIS KIDNEY BECAUSE HE IS SEEING DR. PEREIRA AT [facility] AND THERE WAS SUSPICION OF A RENAL CARCINOMA. Allergies: Coded Allergies: No Known Drug Allergies (Unverified Allergy, Unknown, 07/14/21) Home Meds Active Scripts Levofloxacin (Levofloxacin) 500 Mg Tablet, 500 MG PO QODAY for 10 Days, #5 TAB Prov:AMADOU BANEGAS NP 02/18/25 Amoxicillin/Potassium Clav (Amox Tr-K Clv 875-125 mg Tab) 875 Mg-125 Mg Tablet, 1 EACH PO BID for 7 Days, #14 TAB 0 Refills Prov:AMADOU BANEGAS NP 10/09/24 Reported Medications Tamsulosin HCl (Flomax) 0.4 Mg Cap.er.24h, 0.4 MG PO DAILY, CAPSULE. 09/12/24 Insulin Degludec (Tresiba Flextouch U-100) 100 Unit/Ml (3 Ml) Insuln.pen, 20 U NITS SQ DAILY 09/12/24 Atorvastatin Calcium (Atorvastatin Calcium) 40 Mg Tablet, 40 MG PO DAILY, TAB 03/05/24 Dutasteride (Dutasteride) 0.5 Mg Capsule, 0.5 MG PO DAILY, CAP 12/14/23 Past Medical History Past Medical History: Diabetes-Type II, Hypertension, Renal Disese, Renal Failure, Other Additional Past Medical Hx: mullen catheter poa Surgical History: Other, LAVA Surgical History Other: Diverting ostomy for wound healing purposes Family History: Negative Social History: Negative, Lives with family RN Note Reviewed/Agreed w/PFSH: Yes Review of System Dictation CONSTITUTIONAL: Negative except for HPI for chills HEAD/FACE: Negative except for HPI EENT: Negative except for HPI RESPIRATORY: Negative except for HPI GASTROINTESTINAL/ABDOMINAL: Negative except for HPI nausea vomiting GENITOURINARY: Negative except for HPI chronic Mullen catheter with hematuria MUSCULOSKELETAL: Negative except for HPI INTEGUMENTARY: Negative except for HPI NEUROLOGICAL/PSYCH: Negative except for HPI HEMATOLOGIC/LYMPHATIC: Negative except for HPI All Systems Negative, Except as noted above. 13 point review of systems assessed and all negative except for above. Initial Vital Sign VS Vital Signs Date Time Temp Pulse Resp B/P (MAP) Pulse Ox O2 Delivery O2 Flow Rate FiO2 04/19/25 10:34 101.5 108 18 176/72 96 Room Air 0 04/19/25 11:30 21 Physical Exam Dictation Vital Signs reviewed General Appearance: Alert, oriented x 3, moderate acute distress, well developed, nourished. Head and Face: non-traumatic. Eyes: PERRL, pink conjunctivas, eyelid no trauma, anterior chamber with arcus senilis. Ears: Pinnas intact and no signs of trauma or erythema ear canals clear and no discharge TM no erythema Nose: No discharge, no bleeding. Oropharynx: Mouth normal, tongue pink, pharynx clear,no erythema, tonsils no exudates, no abscesses noted, mucous membrane moist Neck: Supple, non-tender, no thyromegaly, no masses, no JVD, no bruits Breast:Deferred Chest:No tenderness, no crepitus, no paradoxical movement, no retractions Lungs:Clear, well-ventilated, symmetric, no rales, no wheezing, no rhonchi, no stridor, good breath sounds bilaterally Heart: Regular rate, regular rhythm, no murmur, no gallops Vascular: no peripheral edema, Abdomen: Soft, positive bowel sounds, nondistended, no guarding, nontender, no rebound, no masses no hepatomegaly, no splenomegaly, no Houston's sign, no hernias. Rectal: Deferred Genital: SUPRAPUBIC catheter placed with hematuria urine. Neurological: Normal speech, motor function intact, sensory function intact Musculoskeletal: Neck nontender, full range of motion, back nontender, full range of motion, Extremities: nontender, full range of motion Skin: Color pink, dry, no turgor, no rash, no lacerations, no abrasions, no contusions. Lymphatic: Deferred Results (Laboratory/Radiology) Laboratory/Radiology Laboratory Tests Test 04/19/25 11:03 04/19/25 11:12 White Blood Count 15.1 K/uL (4.8-10.8) H Red Blood Count 3.41 MIL/uL (4.50-6.20) L Hemoglobin 11.1 g/dL (14.0-18.0) L Hematocrit 32.4 % (42-54) L Mean Corpuscular Volume 95.0 fL (79-99) Mean Corpuscular Hemoglobin 32.6 pg (27.0-33.0) Mean Corpuscular Hemoglobin Concent 34.3 g/dL (32.0-36.0) Red Cell Distribution Width 14.4 % (11.0-15.5) Platelet Count 149 K/uL (130-400) Mean Platelet Volume 10.2 fL (7.5-10.5) Immature Granulocyte % (Auto) 0.5 % (0-1) Neutrophils (%) (Auto) 86.9 % (40.0-77.0) H Lymphocytes (%) (Auto) 6.5 % (21.0-51.0) L Monocytes (%) (Auto) 5.2 % (3.0-13.0) Eosinophils (%) (Auto) 0.5 % (0.0-8.0) Basophils (%) (Auto) 0.4 % (0.0-5.0) Neutrophils # (Auto) 13.1 K/uL (1.8-7.7) H Lymphocytes # (Auto) 1.0 K/uL (1.0-4.8) Monocytes # (Auto) 0.8 K/uL (0.1-1.0) Eosinophils # (Auto) 0.08 K/uL (0.00-0.70) Basophils # (Auto) 0.06 K/uL (0.00-0.20) Absolute Immature Granulocyte (auto 0.07 K/uL (0-1) Nucleated Red Blood Cells 0.0 % (0.0-0.19) Sodium Level 130 mmol/L (136-145) L Potassium Level 4.8 mmol/L (3.5-5.1) Chloride Level 93 mmol/L (101-111) L Carbon Dioxide Level 31 mmol/L (21-32) Blood Urea Nitrogen 39 mg/dL (7-18) H Creatinine 4.0 mg/dL (0.5-1.3) H Glomerular Filtration Rate Calc 16 mL/min (>90) Random Glucose 209 mg/dL (70-105) H Lactic Acid Level 1.8 mmol/L (0.8-2.5) Total Calcium 8.9 mg/dL (8.5-10.1) Troponin I High Sensitivity 15 ng/L (4-75) Urine Color RED (YELLOW) H Urine Appearance TURBID (CLEAR) H Urine pH 8.0 (5.0-8.0) Urine Specific [place] 1.021 (1.001-1.031) Urine Protein >=300 mg/dL (NEGATIVE) H Urine Glucose (UA) NEGATIVE mg/dL (NEGATIVE) Urine Ketones >=160 mg/dL (NEGATIVE) H Urine Occult Blood LARGE (NEGATIVE) H Urine Nitrate POSITIVE (NEGATIVE) H Urine Bilirubin LARGE mg/dL (NEGATIVE) H Urine Urobilinogen 4.0 mg/dL (0.2-1.0) H Urine Leukocyte Esterase MODERATE Nora/uL SARS-CoV-2 Antigen (Rapid) PRESUMPTIVE NEGATIVE Labs Reviewed?: Yes EKG Comment: EKG SINUS TACHYCARDIA/HEART RATE 109/AXIS NORMAL/NONSPECIFIC ST CHANGES LATERAL LEADS. ED Course ED Course Orders Procedure Category Date Status Time Covid19 (Sars Antigen LAB 04/19/25 Complete Rapid) 10:40 Blood Cult DAVID 04/19/25 In Process 10:40 Lactic Acid LAB 04/19/25 Complete 10:40 Cbc With Differential LAB 04/19/25 In Process 10:40 Troponin I High LAB 04/19/25 Complete Sensitivity 10:40 Urinalysis Profile LAB 04/19/25 In Process 10:40 12 Lead Ekg Tracing- EKG 04/19/25 Complete Technical 10:40 Chest 1vw RAD 04/19/25 Taken 10:40 Basic Metabolic Panel LAB 04/19/25 Complete 10:40 Acetaminophen 500mg PHA 04/19/25 Complete Tab (Tylenol 500mg T 11:00 Ceftriaxone 2gm Vial PHA 04/19/25 Complete (Rocephin 2gm Inj) 12:00 Culture Urine DAVID 04/19/25 In Process 12:28 Current Medications Medications (Trade) Dose Ordered Sig/Rubens Route PRN Reason Start Time Stop Time Status Last Admin Dose Admin Acetaminophen (TYLenol 500MG TAB) 1,000 mg ONCE ONCE PO 04/19/25 11:00 04/19/25 11:01 DC 04/19/25 11:14 Ceftriaxone Sodium (Rocephin 2gm Inj) 2 gm ONCE ONCE IVPB 04/19/25 12:00 04/19/25 12:01 DC 04/19/25 11:41 Vital Signs Date Time Temp Pulse Resp B/P (MAP) Pulse Ox O2 Delivery O2 Flow Rate FiO2 04/19/25 12:07 103.8 111 23 161/64 99 Room Air* 0 21 04/19/25 11:30 103.3 115 20 112/53 99 Room Air* 0 21 04/19/25 11:14 103.3 04/19/25 10:34 101.5 108 18 176/72 96 Room Air 0 1235/[place] [address] WHITE COUNT LACTIC ACID 1.8. HE HAS A LARGE CYSTITIS WITH HEMATURIA WE WILL BE ADMITTED TO THE HOSPITAL HE WAS GIVEN 500 ML NORMAL SALINE WITH 2 G ROCEPHIN FLUID WAS LIMITED DUE TO PATIENT'S HEMODIALYSIS STATUS.1245/SPOKE WITH DR. DEE REVIEWED LABS INTERVENTIONS FOR SEPSIS AND HE AGREED TO ADMIT PATIENT. HEART Score Response (Comments) Value EKG: Repolarization changes 1 Age: 45-65yrs (+1) 1 Risk Factors: 3+ risk factors (+2) 2 Initial Troponin: Normal limit (0) 0 Total 4 Medical Decision Making MDM MDM: DIFFERENTIAL DIAGNOSIS: ACS/AMI/ELECTROLYTE IMBALANCE/DEHYDRATION/UTI/PNEUMONIA/SARS COVID RATIONALE: TESTS CONSIDERED AND ORDERED SECONDARY TO SHARED DECISION MAKING INCLUDE: LABS, ECG AND RADIOLOGY PREVIOUS OUTSIDE RECORDS REVIEWED: OLD ER VISITS. RISK OF COMPLICATION AND/OR MORBIDITY OR MORTALITY OF PATIENT MANAGEMENT: MODERATE MEDICATIONS-PER MEDICATION RECONCILIATION NEED FOR HOSPITALIZATION: PATIENT DOES MEET CRITERIA FOR HOSPITALIZATION. PATIENT WILL NEED TO BE ADMITTED FOR UROLOGY CONSULTATION FLUID RESUSCITATION AND ANTIBIOTICS FOR CYSTITIS NEED FOR EMERGENCY MAJOR/MINOR SURGERY: NO THERE ARE NO SOCIAL CONCERNS WITH THIS PATIENT. PRESCRIPTION DRUG MANAGEMENT PRESCRIPTIONS WILL INCLUDE SYMPTOMATIC CARE PATIENT'S PRIOR EXTERNAL MEDICAL RECORDS FROM OTHER ER VISITS WERE REVIEWED BY ME INDICATED. PRIOR TESTING AND RESULTS FROM PREVIOUS VISITS WERE REVIEWED. PRIOR TESTS WERE TAKEN INTO ACCOUNT WITH MEDICAL DECISION MAKING AND RESOURCE UTILIZATION, INDEPENDENT HISTORIAN/HISTORIANS WERE USED TO OBTAIN COMPLETE MEDICAL HISTORY. I INDEPENDENTLY INTERPRETED THE TEST THAT WERE PERFORMED, RESULTS WERE REVIEWED BY ME AND CONSIDERED FINDINGS ON RADIOLOGY IF ORDERED. MEDICAL MANAGEMENT AND EXAMINATION INTERPRETATION DISCUSSIONS WERE HAD BY ME WITH OTHER QUALIFIED HEALTHCARE PROFESSIONALS INDICATED FOR THE PATIENT'S CARE. DX & DISP Disposition: Inpatient Decision to Admit Time: 12:40 Departure Impression: Primary Impression: Acute cystitis with hematuria Additional Impressions: Anemia of chronic renal failure, Hyponatremia, Hypochloremia, Uncontrolled diabetes mellitus, Suprapubic catheter, ESRD (end stage renal disease) on dialysis Condition: Stable Referrals: RADHA JARAMILLO MD (PCP) Time of Disposition: 12:40 I have reviewed the case, and I agree with, Diagnosis and Plan AMADOU BANEGAS NP Apr 19, 2025 10:44
--- NOTE | 2025-04-19 11:00 | EKG ---
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
[2025-04-19 11:12] LABS: IMMATURE GRANULOCYTE ABSOLUTE 0.07 K/uL (0-1); NUCLEATED RED BLOOD CELLS 0.0 % (0.0-0.19); PLATELET COUNT (AUTO) 149 K/uL (130-400); RED BLOOD CELL COUNT(AUTO) 3.41 MIL/uL (4.50-6.20); RED CELL DISTRIBUTION WIDTH 14.4 % (11.0-15.5); WHITE BLOOD COUNT (AUTO) 15.1 K/uL (4.8-10.8)
[2025-04-19 11:20] LABS: CREATININE 4.0 mg/dL (0.5-1.3); GLOMERULAR FILTR. RATE CALC 16.0 mL/min (>90); GLUCOSE,RANDOM 209.0 mg/dL (70-105); SODIUM SERUM 130.0 mmol/L (136-145); UREA NITROGEN, BLOOD 39.0 mg/dL (7-18)
[2025-04-19 12:25] LABS: ADD UA MICROSCOPIC YES; LEUKOCYTE ESTERASE ,URINE MODERATE Leu/uL (NEGATIVE); NITRATE,URINE POSITIVE (NEGATIVE); OCCULT BLOOD,URINE LARGE (NEGATIVE)
[2025-04-19 12:26] LABS: APPEARANCE,URINE TURBID (CLEAR)
[2025-04-19 12:27] LABS: GLUCOSE, URINE (UA) NEGATIVE (NEGATIVE)
--- NOTE | 2025-04-19 12:36 | HMCIMG ---
Examination: Chest, 1 view Clinical history: Cough Comparison: Radiograph dated March 04, 2024 Findings: AP view of the chest is submitted. Mild bibasilar atelectasis. No pleural effusion or pneumothorax. Heart size and pulmonary vessels are within normal limits. Impression: Mild bibasilar atelectasis. Remainder of the examination is within normal limits. /[place]
[2025-04-19 12:37] LABS: SQUAMOUS EPITHELIAL CELL,UR None Seen /HPF (0-2)
[2025-04-19] MEDS ORDERED: 0.9%NACL 50ML IV SCH (13:00)
[2025-04-19] MEDS: ZOSYN 3.375GM +NS 50ML IVPB SCH (13:11)
--- NOTE | 2025-04-19 15:25 | NUR ---
DCP:HOME Pt currently lives with his sps. Pt uses a cane to ambulate. Pt does have a provider that assists him 28 hrs a week with all ADLs, home management, and meals. Pt goes to [facility] for dialysis on [facility]. PCP is Dr William Irvin and uses [facility] for any RX needs. At [place] pt will want to go home and family can assist with transportation. Addendum: 04/19/25 at 1536 by YADI MEADE SS Amended: Links added.
--- NOTE | 2025-04-19 18:00 | HP ---
DATE OF SERVICE: 04/19/2025 PRESENTING COMPLAINT: Fever and hematuria. HISTORY OF PRESENT ILLNESS: A 59-year-old male with history of ESRD, on dialysis; urinary retention, hypertension, and diabetes mellitus, presented to the hospital with the above complaint. The patient noticed hematuria from the penis and from the suprapubic cystostomy. The patient also complained of some fever. Early in the Emergency Room, T-max was 103, WBC was elevated at 15,000. Has some nausea and vomiting, but no diarrhea. No bleeding tendency. No sick contact. The patient has end-stage renal disease and has been compliant with dialysis. PAST MEDICAL HISTORY: * ESRD, on dialysis. * Diabetes mellitus. * Hypertension. * Peroneal abscess. * Right renal cancer. * Urinary retention. * UTI. PAST SURGICAL HISTORY: * Suprapubic cystostomy. * AV fistula surgery. * Diverting colostomy. * Incision and drainage of perineal abscess. * Cystoscopy. ALLERGIES: No known drug allergies. HOME MEDICATIONS: To be reviewed. SOCIAL HISTORY: . No alcohol, tobacco, or illicit drug use. FAMILY HISTORY: Positive for diabetes mellitus. REVIEW OF SYSTEMS: CONSTITUTIONAL: Positive for fever and chills. No weight loss or night sweats. EYES: No eye pain. No photophobia or diplopia. HENT: No sore throat. No rhinorrhea or earache. NECK: No neck pain or neck swelling. RESPIRATORY: No cough. No hemoptysis or pleuritic pain. CARDIOVASCULAR: No chest pain. No palpitation or orthopnea. GASTROINTESTINAL: Positive for nausea and vomiting. No diarrhea. No abdominal pain. GENITOURINARY: Positive for hematuria. CENTRAL NERVOUS SYSTEM: No headache, dyspnea or slurred speech. PSYCHIATRY: No depression. No suicidal ideation. MUSCULOSKELETAL: No joint pain or joint swelling. PHYSICAL EXAMINATION: GENERAL: Elderly male, awake. VITAL SIGNS: Temperature 103.8, pulse 111, respiratory rate 20, BP 161/64. EYES: No icterus. Pupils equal and reactive. HENT: No oral thrush seen. Moist oral mucosa. NECK: Supple. No JVD or thyromegaly. LUNGS: Good air entry. No rales. No rhonchi. CARDIOVASCULAR SYSTEM: S1 and S2 regular. No murmur heard. ABDOMEN: Full, soft, nontender. Bowel sound is present. CENTRAL NERVOUS SYSTEM: Awake, alert, oriented x 3. No focal deficits. SKIN: No rashes. No itchiness. LYMPHATIC: No peripheral lymphadenopathy. BACK: No deformity. No pressure ulcer. GENITOURINARY: The patient has Holden catheter and suprapubic cystostomy drainage bloody fluid. The patient also has hematuria from the penis. LABORATORY DATA: Sodium 130, potassium 4.8, BUN 39, creatinine 1.4. WBC 15.1, hemoglobin 11.1, platelet 149. COVID PCR negative. Urinalysis, wbc too numerous to count. RADIOLOGY: Chest x-ray unremarkable. ASSESSMENT: A 59-year-old male presented with fever and hematuria. Current problems include: * Possible gram-negative sepsis * Hematuria. * Obesity. * Hypertension. * Diabetes mellitus. * End-stage renal disease, on dialysis. PLAN: * Start the patient on ceftriaxone. * The patient admitted to medical floor. * Urology evaluation. * Tylenol as needed for pain or fever. * Zofran as needed for nausea and vomiting. * ADA diet. * Insulin sliding scale. * Nephrology evaluation for dialysis. * Monitor electrolyte and correct as needed. TID: [id number] RECEIPT: [id number]
--- NOTE | 2025-04-19 21:55 | NUR ---
REPORT GIVEN TO NURSE TIDWELL
--- NOTE | 2025-04-19 21:56 | NUR ---
PENDING HOME MEDICATIONS LIST, PATIENT'S SPOUSE STATED SHE WILL BRING MEDICATIONS TOMORROW
[2025-04-19 22:05] VITALS: BP 159/74; PULSE 79; RESP 18; TEMP 98.7
--- NOTE | 2025-04-19 22:55 | CONS ---
CONSULTATION NOTE Date of Service: Apr 19, 2025 Reason for Consultation: Gross hematuria true suprapubic catheter Requesting Physician: Jarad Ford MD HISTORY OF PRESENT ILLNESS: 59-year-old man with multiple comorbidities including prolonged diabetes currently on renal replacement treatment, HD has a suprapubic catheter was placed by a urologist here in [place] more than a year ago. Patient states he could not void. He saw another urologist in [place] Jacek Vasquez MD who recommended that patient would live the rest of his life with the suprapubic catheter. Patient is pending a kidney surgery procedure by Dr. Moi Crawley at [facility] some time in May 2025. The hematuria episodes are currently happening too frequently. On presentation he was febrile, he showed leukocytosis on labs. There is no cross-sectional abdominopelvic imaging. He was admitted to the floor for supportive care with a urological consult. REVIEW OF SYSTEMS CONSTITUTIONAL: Denies fever, chills, or fatigue. HEAD/FACE: No signs of trauma. EENT: Denies eye pain, blurred vision, double vision, or light sensitivity. RESPIRATORY: Denies shortness of breath, cough, wheezing CARDIOVASCULAR: Denies chest pain, palpitation, syncope GASTROINTESTINAL/ABDOMINAL: Denies abdominal pain, constipation, diarrhea, nausea or vomiting GENITOURINARY: Gross hematuria MUSCULOSKELETAL: Denies joint pain, tenderness, or trauma. INTEGUMENTARY: Denies rash or itchiness NEUROLOGICAL/PSYCH: Denies anxiety, depression, heat or cold intolerance. PAST MEDICAL HISTORY: ESRD, on dialysis. Diabetes mellitus. Hypertension. Peroneal abscess. Right renal cancer. Urinary retention. UTI. PAST SURGICAL HISTORY: Suprapubic cystostomy. AV fistula surgery. Diverting colostomy. Incision and drainage of perineal abscess. Cystoscopy. PAST SOCIAL HISTORY: Denies smoking, denies ethanol, denies recreational drugs FAMILY HISTORY: Family history noncontributory to presenting complaint Coded Allergies: No Known Drug Allergies (Unverified Allergy, Unknown, 07/14/21) PHYSICAL EXAM EYES: Anicteric. Pupils equal and reactive. HENT: No oral thrush seen, moist Oral mucosa NECK: Supple, no JVD or thyromegaly. LUNGS: Good air entry. No rales, no rhonchi. CARDIOVASCULAR: S1, S2 regular. No murmur heard. ABDOMEN: Soft, non tender, bowel sounds present, no organomegaly, suprapubic catheter site is clean dry and intact CENTRAL NERVOUS SYSTEM: Awake, alert, oriented x 3. No focal deficits. SKIN: No rashes, no swelling. LYMPHATICS: No peripheral lymphadenopathy MUSCULOSKELETAL: No joint swelling, erythema or tenderness. EXTREMITIES: No cyanosis or clubbing BACK: No deformity, no pressure ulcer. GENITOURINARY: Normal genitalia otherwise Vital Sign (Last 24 Hours) 04/19/25 21:55 Temp 98.4 Pulse 75 Resp 16 B/P (MAP) 144/59 Pulse Ox 99 O2 Delivery Room Air* O2 Flow Rate 0 FiO2 21 LABS: Laboratory: Test 04/19/25 20:34 04/19/25 11:12 04/19/25 11:03 Range/Units Whole Blood Glucose 167 H 70-110 MG/DL Urine Color RED H YELLOW Urine Appearance TURBID H CLEAR Urine pH 8.0 5.0-8.0 Urine Specific [place] 1.021 1.001-1.031 Urine Protein >=300 H NEGATIVE mg/dL Urine Glucose (UA) NEGATIVE NEGATIVE mg/dL Urine Ketones >=160 H NEGATIVE mg/dL Urine Occult Blood LARGE H NEGATIVE Urine Nitrate POSITIVE H NEGATIVE Urine Bilirubin LARGE H NEGATIVE mg/dL Urine Urobilinogen 4.0 H 0.2-1.0 mg/dL Urine Leukocyte Esterase MODERATE H NEGATIVE Nora/uL Urine RBC TNTC H 0-1 /HPF Urine WBC TNTC H 0-1 /HPF Urine Squamous Epithelial Cells None Seen 0-2 /HPF Urine Bacteria Rare None Seen /HPF SARS-CoV-2 Antigen (Rapid) PRESUMPTIVE NEGATIVE NEGATIVE White Blood Count 15.1 H 4.8-10.8 K/uL Red Blood Count 3.41 L 4.50-6.20 MIL/uL Hemoglobin 11.1 L 14.0-18.0 g/dL Hematocrit 32.4 L 42-54 % Mean Corpuscular Volume 95.0 79-99 fL Mean Corpuscular Hemoglobin 32.6 27.0-33.0 pg Mean Corpuscular Hemoglobin Concent 34.3 32.0-36.0 g/dL Red Cell Distribution Width 14.4 11.0-15.5 % Platelet Count 149 130-400 K/uL Mean Platelet Volume 10.2 7.5-10.5 fL Immature Granulocyte % (Auto) 0.5 0-1 % Neutrophils (%) (Auto) 86.9 H 40.0-77.0 % Lymphocytes (%) (Auto) 6.5 L 21.0-51.0 % Monocytes (%) (Auto) 5.2 3.0-13.0 % Eosinophils (%) (Auto) 0.5 0.0-8.0 % Basophils (%) (Auto) 0.4 0.0-5.0 % Neutrophils # (Auto) 13.1 H 1.8-7.7 K/uL Lymphocytes # (Auto) 1.0 1.0-4.8 K/uL Monocytes # (Auto) 0.8 0.1-1.0 K/uL Eosinophils # (Auto) 0.08 0.00-0.70 K/uL Basophils # (Auto) 0.06 0.00-0.20 K/uL Absolute Immature Granulocyte (auto 0.07 0-1 K/uL Nucleated Red Blood Cells 0.0 0.0-0.19 % White Cell Morphology Comment See comments Sodium Level 130 L 136-145 mmol/L Potassium Level 4.8 3.5-5.1 mmol/L Chloride Level 93 L 101-111 mmol/L Carbon Dioxide Level 31 21-32 mmol/L Blood Urea Nitrogen 39 H 7-18 mg/dL Creatinine 4.0 H 0.5-1.3 mg/dL Glomerular Filtration Rate Calc 16 >90 mL/min Random Glucose 209 H 70-105 mg/dL Lactic Acid Level 1.8 0.8-2.5 mmol/L Total Calcium 8.9 8.5-10.1 mg/dL Troponin I High Sensitivity 15 4-75 ng/L DIAGNOSTICS / RADIOLOGY: None to review ASSESSMENT: 59-year-old man with multiple comorbidities has been relegated to a suprapubic catheter placed sometime last year by a urologist here in [place] and is developing frequent gross hematuria. PLAN: 1. He has already on renal replacement treatment secondary to end-stage renal disease. We will obtain an appropriate imaging, CT abdomen and pelvis with and without contrast. (contrast nephropathy not a concern since he is already on hemodialysis) 2. Once this imaging is done we will review it and then make treatment recommendations. The goal is to define patient's anatomy and make sure that hematuria as and a secondary to worsening right renal lesion. 3. We will follow patient's course in-house. 60 minutes spent to complete this consult, more than half of the time spent in at bedside in counseling and coordination of care and addressing questions and concerns post by patient, some time was spent discussing with members of his care team, the rest of the time was spent reviewing medical records. RYAN MUNOZ MD Apr 19, 2025 22:55
[2025-04-20] VITALS (21 sets, daily range): BP systolic 124–165; BP diastolic 63–83; PULSE 74–112; RESP 14–18; TEMP 97.7–98.6; O2SAT 97–99
[2025-04-20 04:09] LABS: IMMATURE GRANULOCYTE ABSOLUTE 0.11 K/uL (0-1); NUCLEATED RED BLOOD CELLS 0.0 % (0.0-0.19); PLATELET COUNT (AUTO) 147 K/uL (130-400); RED BLOOD CELL COUNT(AUTO) 3.02 MIL/uL (4.50-6.20); RED CELL DISTRIBUTION WIDTH 14.3 % (11.0-15.5); WHITE BLOOD COUNT (AUTO) 16.8 K/uL (4.8-10.8)
[2025-04-20 04:27] LABS: ASPARTATE AMINOTRANSFERASE 15.0 U/L (10-37); CREATININE 4.6 mg/dL (0.5-1.3); GLOMERULAR FILTR. RATE CALC 14.0 mL/min (>90); GLUCOSE,RANDOM 108.0 mg/dL (70-105); SODIUM SERUM 133.0 mmol/L (136-145); TOTAL PROTEIN, SERUM 6.6 g/dL (6.0-8.3); UREA NITROGEN, BLOOD 48.0 mg/dL (7-18)
[2025-04-20] MEDS ORDERED: ATOR40TA71 PO (09:00)
[2025-04-20] MEDS ORDERED: FOLI0.8T43 PO (09:00)
[2025-04-20] MEDS ORDERED: TAMS-55 PO (09:00)
--- NOTE | 2025-04-20 14:26 | PN ---
INFECTIOUS DISEASE PROGRESS NOTE Date of Service: Apr 20, 2025 SUBJECTIVE: This is a 59-year-old male patient with suprapubic catheter and end-stage renal disease who was admitted for fever and hematuria. Patient has been evaluated by urologist and pending a CT of the abdomen and pelvis. The WBC remains high at 16.8 but no fever reported this morning. Very minimal hematuria in the [place] bag. Preliminary urine cultures is growing Gram-negative rods. We will continue on Zosyn IV and follow up on the final cultures results. PHYSICAL EXAM EYES: Anicteric. Pupils equal and reactive. HENT: No oral thrush seen, moist Oral mucosa NECK: Supple, no JVD or thyromegaly. LUNGS: Good air entry. No rales, no rhonchi. CARDIOVASCULAR: S1, S2 regular. No murmur heard. ABDOMEN: Soft, non tender, bowel sounds present, no organomegaly CENTRAL NERVOUS SYSTEM: Awake, alert, oriented x 3. SKIN: No rashes, no swelling. LYMPHATICS: No peripheral lymphadenopathy MUSCULOSKELETAL: No joint swelling, erythema or tenderness. EXTREMITIES: No cyanosis or clubbing BACK: No deformity, no pressure ulcer. GENITOURINARY: Hematuria. Suprapubic catheter. Vital Sign (Last 12 Hours) 04/20/25 04/20/25 04/20/25 04/20/25 04:00 07:10 08:00 11:45 Temp 98.4 98.2 98.4 Pulse 82 90 86 Resp 18 18 16 B/P (MAP) 150/69 150/68 153/67 Pulse Ox 97 97 98 98 O2 Delivery Room Air* Room Air Room Air O2 Flow Rate 0 FiO2 21 21 21 LABS: Laboratory: Test 04/20/25 10:56 04/20/25 03:39 04/19/25 11:12 04/19/25 11:03 Range/Units Whole Blood Glucose 195 #H 70-110 MG/DL Bedside Glucose Comment Notified Nurse White Blood Count 16.8 H 4.8-10.8 K/uL Red Blood Count 3.02 L 4.50-6.20 MIL/uL Hemoglobin 9.7 L 14.0-18.0 g/dL Hematocrit 28.5 L 42-54 % Mean Corpuscular Volume 94.4 79-99 fL Mean Corpuscular Hemoglobin 32.1 27.0-33.0 pg Mean Corpuscular Hemoglobin Concent 34.0 32.0-36.0 g/dL Red Cell Distribution Width 14.3 11.0-15.5 % Platelet Count 147 130-400 K/uL Mean Platelet Volume 10.3 7.5-10.5 fL Immature Granulocyte % (Auto) 0.7 0-1 % Neutrophils (%) (Auto) 76.6 40.0-77.0 % Lymphocytes (%) (Auto) 13.9 L 21.0-51.0 % Monocytes (%) (Auto) 6.9 3.0-13.0 % Eosinophils (%) (Auto) 1.5 0.0-8.0 % Basophils (%) (Auto) 0.4 0.0-5.0 % Neutrophils # (Auto) 12.9 H 1.8-7.7 K/uL Lymphocytes # (Auto) 2.3 1.0-4.8 K/uL Monocytes # (Auto) 1.2 H 0.1-1.0 K/uL Eosinophils # (Auto) 0.25 0.00-0.70 K/uL Basophils # (Auto) 0.07 0.00-0.20 K/uL Absolute Immature Granulocyte (auto 0.11 0-1 K/uL Nucleated Red Blood Cells 0.0 0.0-0.19 % Sodium Level 133 L 136-145 mmol/L Potassium Level 4.3 3.5-5.1 mmol/L Chloride Level 95 L 101-111 mmol/L Carbon Dioxide Level 29 21-32 mmol/L Blood Urea Nitrogen 48 H 7-18 mg/dL Creatinine 4.6 H 0.5-1.3 mg/dL Glomerular Filtration Rate Calc 14 >90 mL/min Random Glucose 108 H 70-105 mg/dL Hemoglobin A1c 5.8 4.0-6.0 % Estimated Average Glucose (eAG) 120 70-126 mg/dL Total Calcium 8.5 8.5-10.1 mg/dL Magnesium Level 1.90 1.80-2.40 mg/dL Total Bilirubin 0.8 0.2-1.0 mg/dL Aspartate Amino Transf (AST/SGOT) 15 10-37 U/L Alanine Aminotransferase (ALT/SGPT) 19 12-78 U/L Alkaline Phosphatase 69 50-136 U/L Total Protein 6.6 6.0-8.3 g/dL Albumin 2.8 L 3.5-5.0 g/dL Urine Color RED H YELLOW Urine Appearance TURBID H CLEAR Urine pH 8.0 5.0-8.0 Urine Specific [place] 1.021 1.001-1.031 Urine Protein >=300 H NEGATIVE mg/dL Urine Glucose (UA) NEGATIVE NEGATIVE mg/dL Urine Ketones >=160 H NEGATIVE mg/dL Urine Occult Blood LARGE H NEGATIVE Urine Nitrate POSITIVE H NEGATIVE Urine Bilirubin LARGE H NEGATIVE mg/dL Urine Urobilinogen 4.0 H 0.2-1.0 mg/dL Urine Leukocyte Esterase MODERATE H NEGATIVE Nora/uL Urine RBC TNTC H 0-1 /HPF Urine WBC TNTC H 0-1 /HPF Urine Squamous Epithelial Cells None Seen 0-2 /HPF Urine Bacteria Rare None Seen /HPF SARS-CoV-2 Antigen (Rapid) PRESUMPTIVE NEGATIVE NEGATIVE White Cell Morphology Comment See comments Lactic Acid Level 1.8 0.8-2.5 mmol/L Troponin I High Sensitivity 15 4-75 ng/L DIAGNOSTICS / RADIOLOGY: PATIENT: JARED WARD ACCT: [id number] LOC: [facility] U: [id number] AGE/SX: 59/M ROOM: [facility] RE04/19/[address]: CYNDEE RODRIGUEZ MD : 1965 BED: 1 DIS: STATUS: ADM IN TLOC: SPEC: [id number] LAZ: 04/19/25-1111 STATUS: RES REQ: [id number] RECD: 04/20/25 [facility] DR: AMADOU BANEGAS NP SOURCE: URINE CATH ENTR: 04/20/25 [facility] DR: RADHA JARAMILLO MD SPDESC: VENKATA ALLISON MD ORDERED: AERO ID & SENS Procedure Result Hardik Date-Time AEROBIC ID & SENSITIVITIES Preliminary 04/20/25-1040 MRL COLONY DESCRIPTION: DAY 1: COLONY COUNT: >100,000 CFU/ML GRAM NEGATIVE RODS IDENTIFICATION AND SENSITIVITY TO FOLLOW Test(s) performed by: [facility] [address] [place] [address] ASSESSMENT: Urinary tract infection. Hematuria. Leukocytosis. Diabetes mellitus. End-stage renal disease. PLAN: Continue Zosyn. Continue antidiabetics. Continue dialysis as recommended by cdl service technician. Will monitor for bleeding. Will monitor electrolytes. We will follow up on the final cultures. Urology has evaluated patient and pending a CT of the abdomen/pelvis. This case was reviewed and discussed with my supervising physician Dr. Rodriguez and the above assessment and plan was formulated and agreed upon. ATTESTATION BY PHYSICIAN I have seen and examined the patient. I reviewed the documentation, medical decision making, and treatment plan as noted by the mid-level provider above. I agree with the findings and plan of care. CYNDEE RODRIGUEZ MD, [facility] Apr 20, 2025 14:26
--- NOTE | 2025-04-20 15:11 | NUR ---
CALLED TO DR JACK OFFICE AND SPOKE WITH YOHANA . PER OFFICE DR JACK IS ONCALL , INFORMATION GIVEN AND CALL BACK NUMBER. PENDING CALL BACK
--- NOTE | 2025-04-20 20:14 | PN ---
NEPHROLOGY NOTE SUBJECTIVE: Nephrology note for hemodialysis. Seen for dialysis. Seen several times. The patient has no other associated findings. No other aggravating or relieving factors. The patient is generally weak. PHYSICAL EXAMINATION: GENERAL: Shows pale, no other distress or deformities, lying in bed. VITAL SIGNS: Blood pressure is 146/68, pulse 78, respiratory rate is 14. HEENT: Head is atraumatic, normocephalic. Pupils are round and reactive. Sclerae are anicteric. Conjunctivae not pale. Oral mucosa is not dry. NECK: Supple. No masses or bruits. Thyroid is palpable. Neck has no bruits. CHEST: Shows equal to thoracic percussion note being resonant in all areas. LABORATORY DATA: Have been reviewed. Old records reviewed. PROBLEMS: Renal failure, anemia, multiple other comorbidities. The patient is treated for sepsis and UTI. PLAN: We will continue monitoring. Antibiotic continue. We will discuss with other team members and we will continue to follow. Epogen as needed. The patient was evaluated and seen for dialysis several times. TID: [id number] RECEIPT: [id number]
[2025-04-20] MEDS: EPOETIN ALFA-EPBX (NON-ESRD) 10,000 UNIT/ML VIAL SQ SCH (21:07)
--- NOTE | 2025-04-20 21:13 | CONS ---
NEPHROLOGY CONSULTATION REASON FOR CONSULTATION: This patient has multiple problems including sepsis, UTI, and renal failure. HISTORY OF PRESENT ILLNESS: This patient has multiple medical problems. We have been consulted, and the patient has underlying diabetes, hypertension, hyperlipidemia, end-stage renal disease on dialysis, history of right renal cancer, urinary retention and UTI. The patient has a suprapubic catheter. The patient is pending nephrectomy. The patient is having hematuria now. No other associated findings. No other aggravating or relieving factor. The patient is treated for UTI. PAST MEDICAL HISTORY: As above with diabetes, hypertension, hyperlipidemia, renal mass, renal cancer, urinary retention, suprapubic catheter, end-stage renal disease, anemia and UTI. PAST SURGICAL HISTORY: Significant for AV fistula, colostomy, I and D of a renal abscess, hysteroscopy and suprapubic catheter placement. SOCIAL HISTORY: No smoking, alcohol, or drug abuse. FAMILY HISTORY: Noncontributory. ALLERGIES: No allergies reported. REVIEW OF SYSTEMS: CONSTITUTIONAL: Has been weak with weakness. No fevers, chills, or rigors. HEENT: No headache. No oral ulcers, sore throat or difficulty swallowing. RESPIRATORY: No cough, expectoration, hemoptysis or pleuritic pain. CARDIOVASCULAR: No orthopnea or PND. GASTROINTESTINAL: Positive for nausea and vomiting. No diarrhea. GENITOURINARY: As above with hematuria, UTI and renal mass. DERMATOLOGIC: No rashes, pruritus or skin lesion. ENDOCRINE: No polyuria, polydipsia or polyphagia. PSYCHIATRIC: Negative for anxiety or depression. NEUROLOGIC: No seizure or syncope. PHYSICAL EXAMINATION: GENERAL: Pale, in no other distress or deformities, lying in bed. VITAL SIGNS: Blood pressure is around 142/65, pulse 80, respiratory rate is 14. HEENT: Head is atraumatic, normocephalic. Pupils are round and reactive. Sclerae anicteric. Conjunctivae not pale. Oral mucosa is not dry. NECK: Without masses or bruits. Thyroid is palpable. Neck has no bruits. CHEST: Shows equal to thoracic percussion note being resonant in all areas. CARDIAC: Regular rhythm. No rub. No S3 or S4. No parasternal heave. ABDOMEN: With no guarding, tenderness. Bowel sounds are present. No free fluid. No rebound, rigidity or tenderness. EXTREMITIES: With no edema. No cyanosis or clubbing. BACK: No tenderness or back deformities. SKIN: No other petechial rashes noted on inspection or palpation. LYMPHATIC: No lymph node swelling in neck and axillary area. NEUROLOGIC: Unchanged. Nonfocal. No cranial nerve palsy. LABORATORY DATA: Labs have been reviewed. The patient has a BUN of creatinine of 4.6, low sodium of 133. The patient has a white cell count high up to 16.8, low hemoglobin 9.7. Microbiology data reviewed. Cultures are pending. Urine has been positive. IMAGING STUDIES: Personally reviewed. CT scan is pending. X-rays chest reviewed with no acute findings. All records have been reviewed. PROBLEMS: The patient is admitted with: * Sepsis, hematuria and UTI. * Has underlying suprapubic catheter. * Frequent gross hematuria. * The patient has a renal mass. * Underlying end-stage renal disease, on dialysis. * Underlying anemia. * Underlying hypertension. * Underlying perineal abscess before. * Underlying urinary retention. * Diverting colostomy. * Multiple other comorbidities. PLAN: * Continue dialysis support. * IV antibiotics in adjusted dose. * CT scan has been ordered. * The patient may have worsening renal mass. * Epogen as needed for anemia. * IV Dilaudid for pain 0.5 mg every 6 hours. * DVT GI prophylaxis. * Nonsteroidal drugs to be avoided. * I have discussed with the other team members. Labs, x-rays and imaging studies personally reviewed. I will suggest Nephro-Jayme 1 daily and please avoid nonsteroidal drugs. We will continue followup. Condition is critical and guarded. We have reviewed the external records, old records in detail and labs and x-rays personally. Follow up labs including CBC and CMP ordered. Thank you for this patient. TID: [id number] RECEIPT: [id number]
[2025-04-21 04:00] VITALS: BP 126/63; PULSE 95; RESP 18; TEMP 97.8
[2025-04-21 07:06] LABS: IMMATURE GRANULOCYTE ABSOLUTE 0.04 K/uL (0-1); NUCLEATED RED BLOOD CELLS 0.0 % (0.0-0.19); PLATELET COUNT (AUTO) 149 K/uL (130-400); RED BLOOD CELL COUNT(AUTO) 2.71 MIL/uL (4.50-6.20); RED CELL DISTRIBUTION WIDTH 14.4 % (11.0-15.5); WHITE BLOOD COUNT (AUTO) 9.8 K/uL (4.8-10.8)
[2025-04-21 07:52] LABS: ASPARTATE AMINOTRANSFERASE 21.0 U/L (10-37); CREATININE 3.9 mg/dL (0.5-1.3); GLOMERULAR FILTR. RATE CALC 17.0 mL/min (>90); GLUCOSE,RANDOM 126.0 mg/dL (70-105); PHOSPHORUS 4.4 mg/dL (2.5-4.9); SODIUM SERUM 130.0 mmol/L (136-145); TOTAL PROTEIN, SERUM 6.7 g/dL (6.0-8.3); UREA NITROGEN, BLOOD 38.0 mg/dL (7-18)
[2025-04-21 08:00] VITALS: BP 132/75; PULSE 84; RESP 18; TEMP 98.3; O2SAT 98
[2025-04-21] MEDS: Vitamin B Complex/Vit C/Folic Acid PO SCH (08:24)
[2025-04-21] MEDS: 0.9%NACL 1000ML 1,000 ML IV SCH (08:27)
[2025-04-21 08:47] LABS: % IRON SATURATION 31.2 % (30-44); IRON, SERUM 45.0 mcg/dL (65-175)
--- NOTE | 2025-04-21 10:09 | HMCIMG ---
EXAM: CT Abdomen and Pelvis with and without IV contrast CLINICAL HISTORY: Patient presents with hematuria. TECHNIQUE: Axial computed tomography images of the abdomen and pelvis with and without intravenous contrast. CONTRAST: With and without intravenous contrast. COMPARISON: 10/11/2024. FINDINGS: LUNG BASES: Clear. No pleural effusion. LIVER: Mild hepatomegaly with right lobe measuring up to 17.0 cm in craniocaudal dimension. Hepatic steatosis. GALLBLADDER AND BILE DUCTS: Gallbladder distended with stable mild dependent hyperdense content, may represent a small calculus. No pericholecystic inflammatory changes. No biliary ductal dilatation. PANCREAS: Unremarkable. SPLEEN: Unremarkable. ADRENAL GLANDS: Unremarkable. KIDNEYS, URETERS, AND BLADDER: A stable 10.0 x 8.0 x 8.0 cm well-defined heterogeneously enhancing soft tissue density lesion with necrosis involving the right renal upper and mid poles, infiltrating the adjacent pelvicalyceal system. Fat planes with adjacent structures are maintained. Few adjacent collateral vessels. Smooth wall thickening and enhancement of the right renal pelvis and proximal ureter. A stable 6.1 x 3.7 x 3.7 cm right renal interpolar cortical cyst with few internal thin septae. A stable 2.0 cm right renal interpolar complex cyst with thin septae and few calcifications. A stable 2.0 cm simple cortical cyst in the left renal lower pole. The urinary bladder is suboptimally distended with diffuse wall thickening. Suprapubic mullen???s bulb catheter in situ. Interval resolution of previously demonstrated bladder clot. Prostate is enlarged. STOMACH AND BOWEL: Mild constipation. Postprocedural changes in the right iliac fossa. No obstruction. APPENDIX: No acute appendicitis. PERITONEUM: No free fluid. No free air. LYMPH NODES: No significant lymphadenopathy. REPRODUCTIVE: Prostate enlarged. VASCULATURE: Moderate atheromatous calcifications of the abdominal aorta and iliac arteries. No abdominal aortic aneurysm. BONES: Multilevel moderate spondylosis. No acute osseous pathology. SOFT TISSUES: Mild subcutaneous fat stranding in the left lower anterior pelvic wall, likely postprocedural sequelae. IMPRESSION: Stable heterogeneously enhancing necrotic mass lesion in the right renal upper and mid poles infiltrating the pelvicalyceal system. Multiple bilateral renal cortical cysts, including complex right renal cysts with septations and calcifications - Bosniak category II. No routine follow-up indicated. Urinary bladder wall thickening with suprapubic Mullen???s bulb catheter in situ. Interval resolution of the previously demonstrated bladder clot. Prostatomegaly. Mild hepatomegaly with diffuse steatosis. Gallbladder distension with probable small calculus, without acute cholecystitis. Recommended ultrasound correlation. Mild constipation. Recommendation: Further evaluation with MRI abdomen with renal protocol is recommended for better characterization of the renal mass and cystic lesions. Correlation with cystoscopy is advised for bladder wall thickening in the setting of hematuria. /Tiffany
--- NOTE | 2025-04-21 11:40 | PN ---
INFECTIOUS DISEASE PROGRESS NOTE Date of Service: Apr 21, 2025 SUBJECTIVE: This 59 year old male patient is being seen today at bedside. Patient remains on Zosyn. No fever or chills. No nausea or vomiting. Patient denies chest pain or shortness of breath. Urine culture was positive for pseudomonas aeruginosa. CT of the abdomen and pelvis showed stable heterogeneously enhancing necrotic mass lesion in the right renal upper and mid poles infiltrating the pelvicalyceal system. Hemoglobin 8.8. Consult oncology. Went over plan of care with family and patient at bedside, stated understanding. Nurse reports patient continues with hematuria over night. PHYSICAL EXAM EYES: Anicteric. Pupils equal and reactive. HENT: No oral thrush seen, moist Oral mucosa NECK: Supple, no JVD or thyromegaly. LUNGS: Good air entry. No rales, no rhonchi. CARDIOVASCULAR: S1, S2 regular. No murmur heard. ABDOMEN: Soft, non tender, bowel sounds present, no organomegaly CENTRAL NERVOUS SYSTEM: Awake, alert, oriented x 3. SKIN: No rashes, no swelling. LYMPHATICS: No peripheral lymphadenopathy MUSCULOSKELETAL: No joint swelling, erythema or tenderness. EXTREMITIES: No cyanosis or clubbing BACK: No deformity, no pressure ulcer. GENITOURINARY: Hematuria. Suprapubic catheter. Vital Sign (Last 12 Hours) 04/20/25 04/21/25 04/21/25 23:51 04:00 08:00 Temp 97.9 97.9 98.2 Pulse 83 95 84 Resp 18 18 18 B/P (MAP) 134/65 126/63 132/75 Pulse Ox 97 97 98 O2 Delivery Room Air Room Air Room Air Intake & Output (last 24hrs) 04/20/25 04/20/25 04/21/25 15:00 23:00 07:00 Output Total 1500 ml Balance -1500 ml LABS: Laboratory: Test 04/21/25 10:56 04/21/25 06:38 04/20/25 03:39 Range/Units Whole Blood Glucose 211 #H 70-110 MG/DL Bedside Glucose Comment Notified Nurse White Blood Count 9.8 4.8-10.8 K/uL Red Blood Count 2.71 L 4.50-6.20 MIL/uL Hemoglobin 8.8 L 14.0-18.0 g/dL Hematocrit 24.8 L 42-54 % Mean Corpuscular Volume 91.5 79-99 fL Mean Corpuscular Hemoglobin 32.5 27.0-33.0 pg Mean Corpuscular Hemoglobin Concent 35.5 32.0-36.0 g/dL Red Cell Distribution Width 14.4 11.0-15.5 % Platelet Count 149 130-400 K/uL Mean Platelet Volume 10.5 7.5-10.5 fL Immature Granulocyte % (Auto) 0.4 0-1 % Neutrophils (%) (Auto) 74.4 40.0-77.0 % Lymphocytes (%) (Auto) 13.6 L 21.0-51.0 % Monocytes (%) (Auto) 8.0 3.0-13.0 % Eosinophils (%) (Auto) 3.2 0.0-8.0 % Basophils (%) (Auto) 0.4 0.0-5.0 % Neutrophils # (Auto) 7.3 1.8-7.7 K/uL Lymphocytes # (Auto) 1.3 1.0-4.8 K/uL Monocytes # (Auto) 0.8 0.1-1.0 K/uL Eosinophils # (Auto) 0.31 0.00-0.70 K/uL Basophils # (Auto) 0.04 0.00-0.20 K/uL Absolute Immature Granulocyte (auto 0.04 0-1 K/uL Nucleated Red Blood Cells 0.0 0.0-0.19 % Sodium Level 130 L 136-145 mmol/L Potassium Level 3.7 3.5-5.1 mmol/L Chloride Level 93 L 101-111 mmol/L Carbon Dioxide Level 27 21-32 mmol/L Blood Urea Nitrogen 38 H 7-18 mg/dL Creatinine 3.9 H 0.5-1.3 mg/dL Glomerular Filtration Rate Calc 17 >90 mL/min Random Glucose 126 H 70-105 mg/dL Total Calcium 8.4 L 8.5-10.1 mg/dL Phosphorus Level 4.4 2.5-4.9 mg/dL Magnesium Level 1.90 1.80-2.40 mg/dL Iron Level 45 #L 65-175 mcg/dL Total Iron Binding Capacity 144 L 250-450 mcg/dL Percent Iron Saturation 31.2 30-44 % Ferritin 1471 H 30-400 ng/mL Total Bilirubin 0.7 0.2-1.0 mg/dL Aspartate Amino Transf (AST/SGOT) 21 10-37 U/L Alanine Aminotransferase (ALT/SGPT) 26 12-78 U/L Alkaline Phosphatase 73 50-136 U/L Total Protein 6.7 6.0-8.3 g/dL Albumin 2.8 L 3.5-5.0 g/dL Hemoglobin A1c 5.8 4.0-6.0 % Estimated Average Glucose (eAG) 120 70-126 mg/dL DIAGNOSTICS / RADIOLOGY: SPEC: [id number] LAZ: 04/19/25 STATUS: COMP REQ: [id number] RECD: 04/20/[address]: AMADOU BANEGAS FIRE PATROL SOURCE: URINE CATH ENTR: 04/20/[address] [facility] DR: RADHA JARAMILLO MD SPDESC: VENKATA ALLISON MD ORDERED: AERO ID & SENS Procedure Result Hardik Date-Time AEROBIC ID & SENSITIVITIES Final 04/21/25-05 MRL COLONY DESCRIPTION: DAY 1: COLONY COUNT: >100,000 CFU/ML GRAM NEGATIVE RODS IDENTIFICATION AND SENSITIVITY TO FOLLOW PSEUDOMONAS AERUGINOSA P. Aerugin M.I.[facility]. RX --------- ---- AZTREONAM <=4 S CEFTAZIDIME <=1 S CEFTAZIDIME/AVIBACTAM <=8 S CIPROFLOXACIN 0.5 S LEVOFLOXACIN 1 S MEROPENEM <=1 S PIPERACILLIN/TAZOBACTAM <=8 S @ [facility] Test Performed at: [facility] [address], [place], [place] Medical Inspector Conveyor Line: Tony Siddiqui D.O. ASSESSMENT: Urinary tract infection, pseudomonas aeruginosa Hematuria. Leukocytosis. Diabetes mellitus. End-stage renal disease. PLAN: Continue Zosyn. Continue antidiabetics. Continue dialysis recommended by option trader. Will monitor for bleeding. Will monitor electrolytes. We will follow up on the final cultures. Consult oncology Follow urologist recommendations Monitor hemoglobin This case was reviewed and discussed with my supervising physician Dr. Rodriguez and the above assessment and plan was formulated and agreed upon. BRANT BAEZ [facility] Apr 21, 2025 11:40
[2025-04-21 11:50] VITALS: BP 136/66; PULSE 77; RESP 18; TEMP 98
[2025-04-21 12:17] LABS: HEPATITIS B CORE AB TOTAL Non-Reactive (Nonreactive); HEPATITIS B SURFACE ANTIBODY Negative (Reactive)
--- NOTE | 2025-04-21 13:53 | PN ---
NEPHROLOGY PROGRESS NOTE Date/Time Patient Seen: Apr 21, 2025 SUBJECTIVE: This is a 59-year-old male with history of ESRD, on dialysis; urinary retention, hypertension, and diabetes mellitus, He presented to the hospital with fever and hematuria from the suprapubic cystostomy. The patient has end-stage renal disease and has been compliant with dialysis. Dialysis was done yesterday, he tolerated well. Hematology/oncology has been consulted for evaluation of renal mass. Continues with hematuria Continues to be followed by urology. He was seen in the medical floor, no acute distress Family at the bedside Prognosis remains guarded REVIEW OF SYSTEMS: GENERAL: Negative for any nausea, vomiting, fevers, chills, or weight loss. NEUROLOGIC: Negative for any blurry vision, blind spots, double vision, facial asymmetry, dysphagia, dysarthria, hemiparesis, hemisensory deficits, vertigo, ataxia. HEENT: Negative for any head trauma, neck trauma, neck stiffness, photophobia, phonophobia, sinusitis, rhinitis. CARDIAC: Negative for any chest pain, dyspnea on exertion, paroxysmal nocturnal dyspnea, peripheral edema. PULMONARY: Negative for any shortness of breath, wheezing, COPD, or TB exposure. GASTROINTESTINAL: Negative for any abdominal pain, nausea, vomiting, bright red blood per rectum, melena. GENITOURINARY: Negative for any dysuria, hematuria, incontinence. INTEGUMENTARY: Negative for any rashes, cuts, insect bites. RHEUMATOLOGIC: Negative for any joint pains, photosensitive rashes, history of vasculitis or kidney problems. HEMATOLOGIC: Negative for any abnormal bruising, frequent infections or bl eeding. Vital Signs (last 8hr) Date Time Temp Pulse Resp B/P (MAP) Pulse Ox O2 Delivery O2 Flow Rate FiO2 04/21/25 11:50 98.1 77 18 136/66 99 Room Air 21 04/21/25 08:00 98 Room Air* 0 21 04/21/25 08:00 98.2 84 18 132/75 98 Room Air PHYSICAL EXAM: GENERAL: Alert and oriented x 3. No acute distress. Well-nourished. EYES: EOMI. Anicteric. HENT: Moist mucous membranes. No scleral icterus. No cervical lymphadenopathy. LUNGS: Clear to auscultation bilaterally. No accessory muscle use. CARDIOVASCULAR: Regular rate and rhythm. No murmur. No JVD. ABDOMEN: Soft, non-tender and non-distended. No palpable masses. EXTREMITIES: No edema. Non-tender. SKIN: No rashes or lesions. Warm. NEUROLOGIC: No focal neurological deficits. CN II-XII grossly intact, but not individually tested. PSYCHIATRIC: Cooperative. Appropriate mood and affect. Current Medications Medications (Trade) Dose Ordered Sig/Rubens Route PRN Reason Start Time Stop Time Status Last Admin Dose Admin Acetaminophen (TYLenol 325MG TAB) 650 mg Q6H PRN PO FEVER/HEADACHE 04/19/25 13:00 05/19/25 12:59 Acetaminophen (TYLenol 325MG TAB) 650 mg Q6H PRN PO MILD PAIN (1-3) 04/19/25 13:00 05/19/25 12:59 Atorvastatin Calcium (LIPItor 40MG) 40 mg DAILY PO 04/22/25 09:00 05/22/25 08:59 Epoetin Kin-epbx (Retacrit) 4,000 unit QTUTHSA[DIALYSIS] SQ 04/20/25 17:00 05/20/25 16:59 04/20/25 21:07 4,000 UNIT Heparin Sodium (Porcine) (HEParin 5,000 UNIT VIAL) 5,000 unit DAILY SQ 04/20/25 09:00 04/20/25 08:57 DC Insulin Human Lispro (HumaLOG LISpro 100 UNIT/ML 3ML) INSULIN SLIDING SCAL... ACHS SQ 04/19/25 16:30 05/19/25 16:29 04/21/25 13:00 6 UNIT Ondansetron HCl (zoFRAN 4MG TABLET) 4 mg Q6H PRN PO NAUSEA/VOMITING 04/19/25 13:00 05/19/25 12:59 Piperacillin Sod/ Tazobactam Sod (Zosyn 3.375gm+NS 50ml) 3.375 gm Q12H IVPB 04/19/25 13:00 04/29/25 12:59 04/21/25 12:55 3.375 GM Sodium Chloride 1,000 ml @ 0 mls/hr ONCE IV 04/20/25 15:30 05/20/25 15:29 Sodium Chloride (NS 50ml) 50 ml AD IV 04/19/25 13:00 04/19/25 12:56 DC Tamsulosin HCl (FloMAX) 0.4 mg DAILY PO 04/22/25 09:00 05/22/25 08:59 Vitamin B Complex/ Vit C/Folic Acid (Nephrovite Tablet) 1 cap DAILY PO 04/21/25 09:00 05/21/25 08:59 04/21/25 08:24 1 CAP Vitamin B Complex/ Vit C/Folic Acid (Nephrovite Tablet) 1 cap DAILY PO 04/22/25 09:00 05/22/25 08:59 LABORATORY: [ ] Hematology Labs: Test 04/21/25 06:38 Range/Units White Blood Count 9.8 4.8-10.8 K/uL Red Blood Count 2.71 L 4.50-6.20 MIL/uL Hemoglobin 8.8 L 14.0-18.0 g/dL Hematocrit 24.8 L 42-54 % Mean Corpuscular Volume 91.5 79-99 fL Mean Corpuscular Hemoglobin 32.5 27.0-33.0 pg Mean Corpuscular Hemoglobin Concent 35.5 32.0-36.0 g/dL Red Cell Distribution Width 14.4 11.0-15.5 % Platelet Count 149 130-400 K/uL Mean Platelet Volume 10.5 7.5-10.5 fL Immature Granulocyte % (Auto) 0.4 0-1 % Neutrophils (%) (Auto) 74.4 40.0-77.0 % Lymphocytes (%) (Auto) 13.6 L 21.0-51.0 % Monocytes (%) (Auto) 8.0 3.0-13.0 % Eosinophils (%) (Auto) 3.2 0.0-8.0 % Basophils (%) (Auto) 0.4 0.0-5.0 % Neutrophils # (Auto) 7.3 1.8-7.7 K/uL Lymphocytes # (Auto) 1.3 1.0-4.8 K/uL Monocytes # (Auto) 0.8 0.1-1.0 K/uL Eosinophils # (Auto) 0.31 0.00-0.70 K/uL Basophils # (Auto) 0.04 0.00-0.20 K/uL Absolute Immature Granulocyte (auto 0.04 0-1 K/uL Nucleated Red Blood Cells 0.0 0.0-0.19 % Chemistry Labs: Test 04/21/25 10:56 04/21/25 06:38 04/20/25 03:39 Range/Units Whole Blood Glucose 211 #H 70-110 MG/DL Bedside Glucose Comment Notified Nurse Sodium Level 130 L 136-145 mmol/L Potassium Level 3.7 3.5-5.1 mmol/L Chloride Level 93 L 101-111 mmol/L Carbon Dioxide Level 27 21-32 mmol/L Blood Urea Nitrogen 38 H 7-18 mg/dL Creatinine 3.9 H 0.5-1.3 mg/dL Glomerular Filtration Rate Calc 17 >90 mL/min Random Glucose 126 H 70-105 mg/dL Total Calcium 8.4 L 8.5-10.1 mg/dL Phosphorus Level 4.4 2.5-4.9 mg/dL Magnesium Level 1.90 1.80-2.40 mg/dL Iron Level 45 #L 65-175 mcg/dL Total Iron Binding Capacity 144 L 250-450 mcg/dL Percent Iron Saturation 31.2 30-44 % Ferritin 1471 H 30-400 ng/mL Total Bilirubin 0.7 0.2-1.0 mg/dL Aspartate Amino Transf (AST/SGOT) 21 10-37 U/L Alanine Aminotransferase (ALT/SGPT) 26 12-78 U/L Alkaline Phosphatase 73 50-136 U/L Total Protein 6.7 6.0-8.3 g/dL Albumin 2.8 L 3.5-5.0 g/dL Hemoglobin A1c 5.8 4.0-6.0 % Estimated Average Glucose (eAG) 120 70-126 mg/dL DIAGNOSTICS / RADIOLOGY: [address] [address] [place] [address] IMAGING REPORT Signed PATIENT: JARED WARD MR#: [id number] : 1965 SEX: M AGE: 59 LOCATION: [facility] ORDER 4 STATUS: ADM IN REPORT#: [id number] SERVICE 09 REASON: hematuria ORDERING PHYSICIAN: CYNDEE DEE MD PROCEDURE: ABD PELWWO - CT ABDOMEN/PELVIS W/WO CONTRAS EXAM: CT Abdomen and Pelvis with and without IV contrast CLINICAL HISTORY: Patient presents with hematuria. TECHNIQUE: Axial computed tomography images of the abdomen and pelvis with and without intravenous contrast. CONTRAST: With and without intravenous contrast. COMPARISON: 10/11/2024. FINDINGS: LUNG BASES: Clear. No pleural effusion. LIVER: Mild hepatomegaly with right lobe measuring up to 17.0 cm in craniocaudal dimension. Hepatic steatosis. GALLBLADDER AND BILE DUCTS: Gallbladder distended with stable mild dependent hyperdense content, may represent a small calculus. No pericholecystic inflammatory changes. No biliary ductal dilatation. PANCREAS: Unremarkable. SPLEEN: Unremarkable. ADRENAL GLANDS: Unremarkable. KIDNEYS, URETERS, AND BLADDER: A stable 10.0 x 8.0 x 8.0 cm well-defined heterogeneously enhancing soft tissue density lesion with necrosis involving the right renal upper and mid poles, infiltrating the adjacent pelvicalyceal system. Fat planes with adjacent structures are maintained. Few adjacent collateral vessels. Smooth wall thickening and enhancement of the right renal pelvis and proximal ureter. A stable 6.1 x 3.7 x 3.7 cm right renal interpolar cortical cyst with few internal thin septae. A stable 2.0 cm right renal interpolar complex cyst with thin septae and few calcifications. A stable 2.0 cm simple cortical cyst in the left renal lower pole. The urinary bladder is suboptimally distended with diffuse wall thickening. Suprapubic mullen???s bulb catheter in situ. Interval resolution of previously demonstrated bladder clot. Prostate is enlarged. STOMACH AND BOWEL: Mild constipation. Postprocedural changes in the right iliac fossa. No obstruction. APPENDIX: No acute appendicitis. PERITONEUM: No free fluid. No free air. LYMPH NODES: No significant lymphadenopathy. REPRODUCTIVE: Prostate enlarged. VASCULATURE: Moderate atheromatous calcifications of the abdominal aorta and iliac arteries. No abdominal aortic aneurysm. BONES: Multilevel moderate spondylosis. No acute osseous pathology. SOFT TISSUES: Mild subcutaneous fat stranding in the left lower anterior pelvic wall, likely postprocedural sequelae. IMPRESSION: Stable heterogeneously enhancing necrotic mass lesion in the right renal upper and mid poles infiltrating the pelvicalyceal system. Multiple bilateral renal cortical cysts, including complex right renal cysts with septations and calcifications - Bosniak category II. No routine follow-up indicated. Urinary bladder wall thickening with suprapubic Mullen???s bulb catheter in situ. Interval resolution of the previously demonstrated bladder clot. Prostatomegaly. Mild hepatomegaly with diffuse steatosis. Gallbladder distension with probable small calculus, without acute cholecystitis. Recommended ultrasound correlation. Mild constipation. Recommendation: Further evaluation with MRI abdomen with renal protocol is recommended for better characterization of the renal mass and cystic lesions. Correlation with cystoscopy is advised for bladder wall thickening in the setting of hematuria. /[place] DICTATED BY: SAMI DIEHL MD DATE: 04/21/251107 ELECTRONICALLY SIGNED BY: SAMI DIEHL MD DATE: 04/21/251107 PATIENT: JARED WARD MR#: [id number] : 1965 SEX: M AGE: 59 LOCATION: [facility] ORDER 41 STATUS: REG REPORT#: [id number] SERVICE 104 REASON: SOB/COUGH ORDERING PHYSICIAN: AMADOU BANEGAS NP PROCEDURE: CXR1VW - CHEST 1VW Examination: Chest, 1 view Clinical history: Cough Comparison: Radiograph dated March 04, 2024 Findings: AP view of the chest is submitted. Mild bibasilar atelectasis. No pleural effusion or pneumothorax. Heart size and pulmonary vessels are within normal limits. Impression: Mild bibasilar atelectasis. Remainder of the examination is within normal limits. /[place] DICTATED BY: NIEVES VILLEGAS Jr., MD DATE: 04/19/251334 ELECTRONICALLY SIGNED BY: NIEVES VILLEGAS Jr., MD DATE: 04/19/251334 ASSESSMENT: End-stage renal disease. Anemia Sepsis Urinary tract infection Urinary retentions with history of Suprapubic catheter Hematuria. Leukocytosis. Diabetes mellitus type II Hypertension History of diverting colostomy PLAN: Labs and Diagnostics/ Radiology personally reviewed and interpreted by myself and supervising physician We have reviewed dialysis and external records in detail Continue dialysis schedule Thursday, early AM Pending hematology/oncology consult 1.5 L fluid restriction Continue to monitor H&H Epogen on dialysis days, as needed Continue with frequent monitoring of renal function, anemia, and electrolytes Order CBC, BMP, and electrolytes in the morning May use Dilaudid 0.5 mg IV every 6 hours as needed for severe pain Maintain glucose between 100-180mg/dl, AccuCheks QC and HS Monitor blood pressure adjust medication doses as needed Maintain normotensive state; keep systolic blood pressure between 110-160 Strict intake, output, and daily weight should be monitored Please renally adjust medications. Avoid nephrotoxics and nonsteroidal drugs. We will continue to monitor the patient closely We have discussed with the other team physicians in detail about the care plan ATTESTATION BY PHYSICIAN I have seen and examined the patient. I reviewed the documentation, medical decision making, and treatment plan as noted by the mid-level provider above. I agree with the findings and plan of care. JESSICA JACK MD, [facility] Apr 21, 2025 13:53
[2025-04-21 16:00] VITALS: BP 151/71; PULSE 72; RESP 18; TEMP 98
[2025-04-21 20:00] VITALS: BP 156/65; PULSE 69; RESP 20; TEMP 98.2
[2025-04-22] VITALS (21 sets, daily range): BP systolic 133–178; BP diastolic 60–80; PULSE 6–82; RESP 14–20; TEMP 98.1–98.7; O2SAT 93
--- NOTE | 2025-04-22 03:38 | NUR ---
PATIENT REFUSED LABS EDUCATED PT ON IMPORTANCE OF LAB WORK. PT STATES HE IS TIRED OF BEING POKED. PATIENT CONTINUED TO REFUSE. PT LYING IN BED, ON ROOM AIR, WITH NO SIGNS OF DISTRESS, CALL LIGHT WITHIN REACH.
[2025-04-22] MEDS: Vitamin B Complex/Vit C/Folic Acid PO SCH (09:00)
[2025-04-22 09:57] LABS: NUCLEATED RED BLOOD CELLS 0.0 % (0.0-0.19); PLATELET COUNT (AUTO) 145.0 K/uL (130-400); RED BLOOD CELL COUNT(AUTO) 2.71 MIL/uL (4.50-6.20); RED CELL DISTRIBUTION WIDTH 13.9 % (11.0-15.5); WHITE BLOOD COUNT (AUTO) 6.8 K/uL (4.8-10.8)
[2025-04-22 10:14] LABS: ASPARTATE AMINOTRANSFERASE 28.0 U/L (10-37); CREATININE 4.2 mg/dL (0.5-1.3); GLOMERULAR FILTR. RATE CALC 15.0 mL/min (>90); GLUCOSE,RANDOM 136.0 mg/dL (70-105); PHOSPHORUS 3.9 mg/dL (2.5-4.9); SODIUM SERUM 130.0 mmol/L (136-145); TOTAL PROTEIN, SERUM 6.6 g/dL (6.0-8.3); UREA NITROGEN, BLOOD 42.0 mg/dL (7-18)
[2025-04-22] MEDS: 0.9%NACL 1000ML 1,000 ML IV SCH (12:15)
[2025-04-22] MEDS: EPOETIN ALFA-EPBX (NON-ESRD) 10,000 UNIT/ML VIAL SQ SCH (17:22)
--- NOTE | 2025-04-22 17:32 | PN ---
INFECTIOUS DISEASE PROGRESS NOTE Date of Service: Apr 22, 2025 SUBJECTIVE: This is a 59 year old male patient was seen at bedside room 429. Patient continues with hematuria and pending urology re-evaluation. Hemoglobin has dropped to 8.7 today. We will continue to monitor. Remains afebrile, temp erature is 98.8 and the WBC has trended down to 6.8. The final urine culture results came back positive for Pseudomonas aeruginosa and patient continues on Zosyn. Pending a oncology evaluation for renal mass finding on CT scan of the abdomen and pelvis. PHYSICAL EXAM EYES: Anicteric. Pupils equal and reactive. HENT: No oral thrush seen, moist Oral mucosa NECK: Supple, no JVD or thyromegaly. LUNGS: Good air entry. No rales, no rhonchi. CARDIOVASCULAR: S1, S2 regular. No murmur heard. ABDOMEN: Soft, non tender, bowel sounds present, no organomegaly CENTRAL NERVOUS SYSTEM: Awake, alert, oriented x 3. SKIN: No rashes, no swelling. LYMPHATICS: No peripheral lymphadenopathy MUSCULOSKELETAL: No joint swelling, erythema or tenderness. EXTREMITIES: No cyanosis or clubbing BACK: No deformity, no pressure ulcer. GENITOURINARY: Hematuria. Suprapubic catheter. Vital Sign (Last 12 Hours) 04/22/25 04/22/25 04/22/25 04/22/25 08:00 08:57 09:21 09:30 Temp 98.1 98.8 98.8 Pulse 73 6 71 71 Resp 18 14 14 14 B/P (MAP) 156/65 148/68 153/70 159/72 Pulse Ox 95 O2 Delivery Room Air Room Air Room Air Room Air 04/22/25 04/22/25 04/22/25 04/22/25 09:45 10:00 10:15 10:30 Pulse 67 68 68 68 Resp 14 14 14 14 B/P (MAP) 157/66 167/76 178/63 159/69 O2 Delivery Room Air Room Air Room Air Room Air 04/22/25 04/22/25 04/22/25 04/22/25 10:45 11:00 11:15 11:30 Pulse 68 69 66 67 Resp 14 14 14 14 B/P (MAP) 156/68 169/68 156/68 167/70 O2 Delivery Room Air Room Air Room Air Room Air 804/22/25 04/22/25 04/22/25 11:45 12:00 12:00 12:15 Temp 98.8 Pulse 67 71 66 70 Resp 14 14 18 14 B/P (MAP) 167/70 163/68 150/68 156/72 Pulse Ox 94 O2 Delivery Room Air Room Air Room Air Room Air FiO2 21 04/22/25 04/22/25 04/22/25 12:40 15:05 16:16 Temp 98.4 98.2 Pulse 74 72 Resp 16 18 B/P (MAP) 163/66 133/60 Pulse Ox 93 100 O2 Delivery Room Air Room Air* Room Air O2 Flow Rate 0 FiO2 21 Intake & Output (last 24hrs) 04/21/25 04/21/25 04/22/25 15:00 23:00 07:00 Intake Total 200 ml 200 ml Balance 200 ml 200 ml LABS: Laboratory: Test 04/22/25 15:44 04/22/25 09:48 04/21/25 06:38 04/20/25 17:40 Range/Units Whole Blood Glucose 223 #H 70-110 MG/DL Bedside Glucose Comment Notified Nurse White Blood Count 6.8 4.8-10.8 K/uL Red Blood Count 2.71 L 4.50-6.20 MIL/uL Hemoglobin 8.7 L 14.0-18.0 g/dL Hematocrit 24.8 L 42-54 % Mean Corpuscular Volume 91.5 79-99 fL Mean Corpuscular Hemoglobin 32.1 27.0-33.0 pg Mean Corpuscular Hemoglobin Concent 35.1 32.0-36.0 g/dL Red Cell Distribution Width 13.9 11.0-15.5 % Platelet Count 145 130-400 K/uL Mean Platelet Volume 9.8 7.5-10.5 fL Nucleated Red Blood Cells 0.0 0.0-0.19 % Sodium Level 130 L 136-145 mmol/L Potassium Level 3.9 3.5-5.1 mmol/L Chloride Level 93 L 101-111 mmol/L Carbon Dioxide Level 29 21-32 mmol/L Blood Urea Nitrogen 42 H 7-18 mg/dL Creatinine 4.2 H 0.5-1.3 mg/dL Glomerular Filtration Rate Calc 15 >90 mL/min Random Glucose 136 H 70-105 mg/dL Total Calcium 8.2 L 8.5-10.1 mg/dL Phosphorus Level 3.9 2.5-4.9 mg/dL Total Bilirubin 0.5 0.2-1.0 mg/dL Aspartate Amino Transf (AST/SGOT) 28 10-37 U/L Alanine Aminotransferase (ALT/SGPT) 40 12-78 U/L Alkaline Phosphatase 76 50-136 U/L Total Protein 6.6 6.0-8.3 g/dL Albumin 2.8 L 3.5-5.0 g/dL Immature Granulocyte % (Auto) 0.4 0-1 % Neutrophils (%) (Auto) 74.4 40.0-77.0 % Lymphocytes (%) (Auto) 13.6 L 21.0-51.0 % Monocytes (%) (Auto) 8.0 3.0-13.0 % Eosinophils (%) (Auto) 3.2 0.0-8.0 % Basophils (%) (Auto) 0.4 0.0-5.0 % Neutrophils # (Auto) 7.3 1.8-7.7 K/uL Lymphocytes # (Auto) 1.3 1.0-4.8 K/uL Monocytes # (Auto) 0.8 0.1-1.0 K/uL Eosinophils # (Auto) 0.31 0.00-0.70 K/uL Basophils # (Auto) 0.04 0.00-0.20 K/uL Absolute Immature Granulocyte (auto 0.04 0-1 K/uL Magnesium Level 1.90 1.80-2.40 mg/dL Iron Level 45 #L 65-175 mcg/dL Total Iron Binding Capacity 144 L 250-450 mcg/dL Percent Iron Saturation 31.2 30-44 % Ferritin 1471 H 30-400 ng/mL Hepatitis B Surface Antigen. Non-Reactive Nonreactive Hepatitis B Surface Antibody. Negative L Reactive Hepatitis B Core Total Antibody. Non-Reactive Nonreactive Hepatitis C Antibody Non-Reactive Nonreactive ASSESSMENT: Urinary tract infection with pseudomonas aeruginosa Hematuria. Leukocytosis, resolving. Diabetes mellitus. End-stage renal disease, on dialysis. Renal mass. PLAN: Continue Zosyn. Continue dialysis recommended by frit coater. Oncology has been consulted. Will follow urologist recommendations. Continue antidiabetics. Continue to monitor hemoglobin. Will monitor electrolytes. This case was reviewed and discussed with my supervising physician Dr. Dee and the above assessment and plan was formulated and agreed upon. ATTESTATION BY PHYSICIAN I have seen and examined the patient. I reviewed the documentation, medical decision making, and treatment plan as noted by the mid-level provider above. I agree with the findings and plan of care. CYNDEE DEE MD, [facility] Apr 22, 2025 17:32
--- NOTE | 2025-04-22 18:27 | PN ---
PROGRESS NOTE Date of Service: Apr 22, 2025 Time of Service: 18:23 SUBJECTIVE: Presented to the hospital we were asked to see him for gross hematuria. He has end-stage renal disease on hemodialysis. At the time of initial consultation with the patient, there was no cross-sectional imaging. We suggested a CT abdomen and pelvis with and without contrast be obtained and it was done. We have reviewed the films. 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 This might be the source of his gross hematuria. Patient needs a radical nephrectomy. We also noted that he has an enlarged prostate and a suprapubic catheter was in location. REVIEW OF SYSTEMS CONSTITUTIONAL: Denies fever, chills, or fatigue. HEAD/FACE: No signs of trauma. EENT: Denies eye pain, blurred vision, double vision, or light sensitivity. RESPIRATORY: Denies shortness of breath, cough, wheezing CARDIOVASCULAR: Denies chest pain, palpitation, syncope GASTROINTESTINAL/ABDOMINAL: Denies abdominal pain, constipation, diarrhea, nausea or vomiting GENITOURINARY: Gross hematuria MUSCULOSKELETAL: Denies joint pain, tenderness, or trauma. INTEGUMENTARY: Denies rash or itchiness NEUROLOGICAL/PSYCH: Denies anxiety, depression, heat or cold intolerance. PHYSICAL EXAM EYES: Anicteric. Pupils equal and reactive. HENT: No oral thrush seen, moist Oral mucosa NECK: Supple, no JVD or thyromegaly. LUNGS: Good air entry. No rales, no rhonchi. CARDIOVASCULAR: S1, S2 regular. No murmur heard. ABDOMEN: Soft, non tender, bowel sounds present, no organomegaly, suprapubic catheter site is clean dry and intact CENTRAL NERVOUS SYSTEM: Awake, alert, oriented x 3. No focal deficits. SKIN: No rashes, no swelling. LYMPHATICS: No peripheral lymphadenopathy MUSCULOSKELETAL: No joint swelling, erythema or tenderness. EXTREMITIES: No cyanosis or clubbing BACK: No deformity, no pressure ulcer. GENITOURINARY: Normal genitalia otherwise Vital Signs (last 8hr) Date Time Temp Pulse Resp B/P (MAP) Pulse Ox O2 Delivery O2 Flow Rate FiO2 04/22/25 16:16 98.2 72 18 133/60 100 Room Air 04/22/25 15:05 93 Room Air* 0 21 04/22/25 12:40 98.4 74 16 163/66 Room Air 04/22/25 12:15 70 14 156/72 Room Air 04/22/25 12:00 98.8 66 18 150/68 94 Room Air 21 04/22/25 12:00 71 14 163/68 Room Air 04/22/25 11:45 67 14 167/70 Room Air 04/22/25 11:30 67 14 167/70 Room Air 04/22/25 11:15 66 14 156/68 Room Air 04/22/25 11:00 69 14 169/68 Room Air 04/22/25 10:45 68 14 156/68 Room Air 04/22/25 10:30 68 14 159/69 Room Air LABS: Laboratory: Test 04/22/25 15:44 04/22/25 09:48 04/21/25 06:38 Range/Units Whole Blood Glucose 223 #H 70-110 MG/DL Bedside Glucose Comment Notified Nurse White Blood Count 6.8 4.8-10.8 K/uL Red Blood Count 2.71 L 4.50-6.20 MIL/uL Hemoglobin 8.7 L 14.0-18.0 g/dL Hematocrit 24.8 L 42-54 % Mean Corpuscular Volume 91.5 79-99 fL Mean Corpuscular Hemoglobin 32.1 27.0-33.0 pg Mean Corpuscular Hemoglobin Concent 35.1 32.0-36.0 g/dL Red Cell Distribution Width 13.9 11.0-15.5 % Platelet Count 145 130-400 K/uL Mean Platelet Volume 9.8 7.5-10.5 fL Nucleated Red Blood Cells 0.0 0.0-0.19 % Sodium Level 130 L 136-145 mmol/L Potassium Level 3.9 3.5-5.1 mmol/L Chloride Level 93 L 101-111 mmol/L Carbon Dioxide Level 29 21-32 mmol/L Blood Urea Nitrogen 42 H 7-18 mg/dL Creatinine 4.2 H 0.5-1.3 mg/dL Glomerular Filtration Rate Calc 15 >90 mL/min Random Glucose 136 H 70-105 mg/dL Total Calcium 8.2 L 8.5-10.1 mg/dL Phosphorus Level 3.9 2.5-4.9 mg/dL Total Bilirubin 0.5 0.2-1.0 mg/dL Aspartate Amino Transf (AST/SGOT) 28 10-37 U/L Alanine Aminotransferase (ALT/SGPT) 40 12-78 U/L Alkaline Phosphatase 76 50-136 U/L Total Protein 6.6 6.0-8.3 g/dL Albumin 2.8 L 3.5-5.0 g/dL Immature Granulocyte % (Auto) 0.4 0-1 % Neutrophils (%) (Auto) 74.4 40.0-77.0 % Lymphocytes (%) (Auto) 13.6 L 21.0-51.0 % Monocytes (%) (Auto) 8.0 3.0-13.0 % Eosinophils (%) (Auto) 3.2 0.0-8.0 % Basophils (%) (Auto) 0.4 0.0-5.0 % Neutrophils # (Auto) 7.3 1.8-7.7 K/uL Lymphocytes # (Auto) 1.3 1.0-4.8 K/uL Monocytes # (Auto) 0.8 0.1-1.0 K/uL Eosinophils # (Auto) 0.31 0.00-0.70 K/uL Basophils # (Auto) 0.04 0.00-0.20 K/uL Absolute Immature Granulocyte (auto 0.04 0-1 K/uL Magnesium Level 1.90 1.80-2.40 mg/dL Iron Level 45 #L 65-175 mcg/dL Total Iron Binding Capacity 144 L 250-450 mcg/dL Percent Iron Saturation 31.2 30-44 % Ferritin 1471 H 30-400 ng/mL DIAGNOSTICS / RADIOLOGY: CT of the abdomen and pelvis with and without contrast was reviewed. Large heterogeneously enhancing right upper pole renal mass extending into the renal sinus and possibly the collecting system. ASSESSMENT: 59-year-old man with multiple comorbidities has been relegated to a suprapubic catheter placed sometime last year by a urologist here in [place] and is developing frequent gross hematuria. PLAN: 1. He has already on renal replacement treatment secondary to end-stage renal disease. 2. We have reviewed a CT scan abdomen and pelvis with and without intravenous contrast. Patient has a large concerning right renal mass which we think might be the source of gross hematuria. 3. Patient is going to need a robotic assisted laparoscopic right radical nephrectomy/possible open nephrectomy because of his previous history of a colostomy with takedown. 4. I presented him this option today to either continue to follow up with Dr. Moi Crawley with a [facility] group or see us in [place]. He has decided to see us in [place]. 5. We will see patient in the office in about a week and we plan to put him on the schedule this of April for the surgery. 6. In the meantime while patient is in-house he needs to have a complete cardiac clearance. 45 minutes was spent for this visit, more than half of the time was spent at bedside in counseling and coordination of care, addressing questions posed by patient's and daughter as well as himself. We reviewed patient's imaging together with him. Some time was spent discussing with members of his care team, the rest of the time was spent reviewing medical records. RYAN MUNOZ MD Apr 22, 2025 18:27
--- NOTE | 2025-04-22 21:29 | PN ---
SUBJECTIVE: The patient has been evaluated and seen for dialysis and seen several times. The patient has no fever, chills, or rigors. No cough, expectoration or hemoptysis. No other associated findings. No other aggravating or relieving factors. The patient is generally weak. He has persistent hematuria. He has renal mass. The patient has abdominal and pelvic CT done. There is a right renal upper pole mass. The patient is apparently planned for nephrectomy. No other associated symptoms. Nephrectomy is planned in [facility] in [facility]. No other associated symptoms. The patient's anemia has gotten worse and hematuria has persisted. All the other systemic review is unchanged and unremarkable. PHYSICAL EXAMINATION: GENERAL: Pale, sick looking, lying in bed. VITAL SIGNS: Blood pressure is 156/72, pulse 70, respiratory rate is 18 and afebrile. HEENT: Head is atraumatic, normocephalic. Pupils are round and reactive. Sclerae anicteric. Conjunctivae not pale. Oral mucosa is not dry. NECK: Supple. No masses or bruits. Thyroid is palpable. Neck has no bruits. CHEST: Shows equal to thoracic percussion. CARDIAC: Regular rhythm. No rub. No S3, S4. No parasternal heave. ABDOMEN: With no guarding or tenderness. Bowel sounds normoactive. No free fluid. EXTREMITIES: With edema and no cyanosis or clubbing. BACK: With no CVA tenderness or back deformities. LYMPHATIC: With no lymph node swelling in neck or axillary area. PROBLEMS: The patient has multiple other comorbidities. PLAN: Plan is to continue dialysis support. Continue monitoring of renal function. Continue monitoring of electrolytes. Seen for dialysis. Seen several times. Intake, output, weight will be monitored. Condition remained critical and guarded. The patient was evaluated and seen for dialysis multiple times. Epogen as needed. Overall prognosis remained guarded. Thank you for this patient. TID: [id number] RECEIPT: [id number]
--- NOTE | 2025-04-22 21:45 | PN ---
NEPHROLOGY NOTE SUBJECTIVE: The patient has been evaluated and seen for dialysis and seen multiple times. The patient has severe anemia now with persistent hematuria. No fever, chills, rigors. No cough, expectoration of hemoptysis. No abdominal pain or nausea. No other associated findings. No other aggravating or relieving factors. PHYSICAL EXAMINATION: GENERAL: Pale, no other distress or deformities, lying in bed. VITAL SIGNS: Blood pressure is 118/70, respiratory rate is 18. HEENT: Head is atraumatic. Pupils are round and reactive. Sclerae are anicteric. Conjunctivae not pale. Oral mucosa is not dry. NECK: Without masses or bruits. Thyroid is palpable. Neck has no bruits. CHEST: Equal thoracic percussion, note being resonant in all areas. CARDIAC: Regular rhythm. No rub , no S3, S4. No parasternal heave. Apical beat is not localized. ABDOMEN: With no guarding or tenderness. LABORATORY DATA: Reviewed and old records. IMAGING STUDIES: Personally reviewed. PROBLEMS: * Renal failure. * Anemia. PLAN: Continue dialysis support. The has hematuria, renal mass. Continue followup. Intake, output, weight will be monitored. Nonsteroidal drugs will be avoided. Doses of medicine will be adjusted. The patient was evaluated and seen for dialysis and seen several times. We will be following up closely. Condition is critical, guarded. I thank you for this patient. TID: [id number] RECEIPT: [id number]
[2025-04-23] VITALS (9 sets, daily range): BP systolic 117–169; BP diastolic 51–75; PULSE 71–79; RESP 16–18; TEMP 97.8–98.8; O2SAT 96
--- NOTE | 2025-04-23 03:52 | NUR ---
labs patient refused labs, explained importance of labs as ordered by physcian, patient continue to refuse
[2025-04-23 07:20] LABS: NUCLEATED RED BLOOD CELLS 0.0 % (0.0-0.19); PLATELET COUNT (AUTO) 176.0 K/uL (130-400); RED BLOOD CELL COUNT(AUTO) 2.95 MIL/uL (4.50-6.20); RED CELL DISTRIBUTION WIDTH 13.8 % (11.0-15.5); WHITE BLOOD COUNT (AUTO) 6.4 K/uL (4.8-10.8)
[2025-04-23 07:35] LABS: CREATININE 4.9 mg/dL (0.5-1.3); GLOMERULAR FILTR. RATE CALC 13.0 mL/min (>90); GLUCOSE,RANDOM 113.0 mg/dL (70-105); PHOSPHORUS 5.2 mg/dL (2.5-4.9); SODIUM SERUM 132.0 mmol/L (136-145); UREA NITROGEN, BLOOD 39.0 mg/dL (7-18)
--- NOTE | 2025-04-23 10:28 | PN ---
INFECTIOUS DISEASE PROGRESS NOTE Date of Service: Apr 23, 2025 SUBJECTIVE: This is a 59 year old male patient who was seen at bedside room 429. Patient is awake, sitting up on the bedside chair. visiting at bedside. No more hematuria present in the suprapubic catheter drainage bag and the h emoglobin is stable at 9.4. Patient has been re-evaluated by Urology with new recommendations. Continues on Zosyn for UTI. Still pending an oncology evaluation for renal mass finding on CT scan of the abdomen and pelvis. Patient is afebrile this morning, temperature is 98.4. We will continue to follow patient's care. PHYSICAL EXAM EYES: Anicteric. Pupils equal and reactive. HENT: No oral thrush seen, moist Oral mucosa NECK: Supple, no JVD or thyromegaly. LUNGS: Good air entry. No rales, no rhonchi. CARDIOVASCULAR: S1, S2 regular. No murmur heard. ABDOMEN: Soft, non tender, bowel sounds present, no organomegaly CENTRAL NERVOUS SYSTEM: Awake, alert, oriented x 3. SKIN: No rashes, no swelling. LYMPHATICS: No peripheral lymphadenopathy MUSCULOSKELETAL: No joint swelling, erythema or tenderness. EXTREMITIES: No cyanosis or clubbing BACK: No deformity, no pressure ulcer. GENITOURINARY: Hematuria. Suprapubic catheter. Vital Sign (Last 12 Hours) 04/23/25 04/23/25 04/23/25 04/23/25 00:00 04:00 07:38 08:26 Temp 98.8 98.4 98.4 Pulse 71 74 79 Resp 18 18 16 B/P (MAP) 148/71 169/72 160/63 Pulse Ox 98 99 96 96 O2 Delivery Room Air Room Air Room Air* Room Air O2 Flow Rate 0 FiO2 21 Intake & Output (last 24hrs) 04/22/25 04/22/25 04/23/25 15:00 23:00 07:00 Intake Total 300.0 ml Output Total 2000 ml Balance -2000 ml 300.0 ml LABS: Laboratory: Test 04/23/25 07:10 04/23/25 05:33 04/22/25 15:44 04/22/25 09:48 Range/Units White Blood Count 6.4 4.8-10.8 K/uL Red Blood Count 2.95 L 4.50-6.20 MIL/uL Hemoglobin 9.4 L 14.0-18.0 g/dL Hematocrit 27.2 L 42-54 % Mean Corpuscular Volume 92.2 79-99 fL Mean Corpuscular Hemoglobin 31.9 27.0-33.0 pg Mean Corpuscular Hemoglobin Concent 34.6 32.0-36.0 g/dL Red Cell Distribution Width 13.8 11.0-15.5 % Platelet Count 176 130-400 K/uL Mean Platelet Volume 9.5 7.5-10.5 fL Nucleated Red Blood Cells 0.0 0.0-0.19 % Sodium Level 132 L 136-145 mmol/L Potassium Level 4.3 3.5-5.1 mmol/L Chloride Level 92 L 101-111 mmol/L Carbon Dioxide Level 27 21-32 mmol/L Blood Urea Nitrogen 39 H 7-18 mg/dL Creatinine 4.9 H 0.5-1.3 mg/dL Glomerular Filtration Rate Calc 13 >90 mL/min Random Glucose 113 H 70-105 mg/dL Total Calcium 9.1 8.5-10.1 mg/dL Phosphorus Level 5.2 H 2.5-4.9 mg/dL Whole Blood Glucose 117 H 70-110 MG/DL Bedside Glucose Comment Notified Nurse Total Bilirubin 0.5 0.2-1.0 mg/dL Aspartate Amino Transf (AST/SGOT) 28 10-37 U/L Alanine Aminotransferase (ALT/SGPT) 40 12-78 U/L Alkaline Phosphatase 76 50-136 U/L Total Protein 6.6 6.0-8.3 g/dL Albumin 2.8 L 3.5-5.0 g/dL ASSESSMENT: Urinary tract infection with pseudomonas aeruginosa Hematuria, resolving. Leukocytosis, resolving. Diabetes mellitus. End-stage renal disease, on dialysis. Renal mass. PLAN: Continue Zosyn. Continue dialysis recommended by transfer machine operator. Oncology has been consulted. Will follow urologist recommendations. Continue antidiabetics. Continue to monitor hemoglobin. Will monitor electrolytes. This case was reviewed and discussed with my supervising physician Dr. Dee and the above assessment and plan was formulated and agreed upon. ATTESTATION BY PHYSICIAN I have seen and examined the patient. I reviewed the documentation, medical decision making, and treatment plan as noted by the mid-level provider above. I agree with the findings and plan of care. CYNDEE DEE MD, MIRTA L [facility] Apr 23, 2025 10:28
--- NOTE | 2025-04-23 10:31 | PN ---
NEPHROLOGY PROGRESS NOTE Date/Time Patient Seen: Apr 23, 2025 SUBJECTIVE: This is a 59-year-old male with history of ESRD, on dialysis; urinary retention, hypertension, and diabetes mellitus, He presented to the hospital with fever and hematuria from the suprapubic cystostomy. The patient has end-stage renal disease and has been compliant with dialysis. Dialysis was done yesterday, he tolerated well. Hematology/oncology has been consulted for evaluation of renal mass. Continues to be followed by urology. He tolerated dialysis without difficulty. Epogen on dialysis days He was seen in the medical floor, no acute distress Family at the bedside Prognosis remains guarded REVIEW OF SYSTEMS: GENERAL: Negative for any nausea, vomiting, fevers, chills, or weight loss. NEUROLOGIC: Negative for any blurry vision, blind spots, double vision, facial asymmetry, dysphagia, dysarthria, hemiparesis, hemisensory deficits, vertigo, ataxia. HEENT: Negative for any head trauma, neck trauma, neck stiffness, photophobia, phonophobia, sinusitis, rhinitis. CARDIAC: Negative for any chest pain, dyspnea on exertion, paroxysmal nocturnal dyspnea, peripheral edema. PULMONARY: Negative for any shortness of breath, wheezing, COPD, or TB exposure. GASTROINTESTINAL: Negative for any abdominal pain, nausea, vomiting, bright red blood per rectum, melena. GENITOURINARY: Negative for any dysuria, hematuria, incontinence. INTEGUMENTARY: Negative for any rashes, cuts, insect bites. RHEUMATOLOGIC: Negative for any joint pains, photosensitive rashes, history of vasculitis or kidney problems. HEMATOLOGIC: Negative for any abnormal bruising, frequent infections or bleeding. Vital Signs (last 8hr) Date Time Temp Pulse Resp B/P (MAP) Pulse Ox O2 Delivery O2 Flow Rate FiO2 04/23/25 08:26 98.4 79 16 160/63 96 Room Air 04/23/25 07:38 96 Room Air* 0 21 04/23/25 04:00 98.4 74 18 169/72 99 Room Air PHYSICAL EXAM: GENERAL: Alert and oriented x 3. No acute distress. Well-nourished. EYES: EOMI. Anicteric. HENT: Moist mucous membranes. No scleral icterus. No cervical lymphadenopathy. LUNGS: Clear to auscultation bilaterally. No accessory muscle use. CARDIOVASCULAR: Regular rate and rhythm. No murmur. No JVD. ABDOMEN: Soft, non-tender and non-distended. No palpable masses. EXTREMITIES: No edema. Non-tender. SKIN: No rashes or lesions. Warm. NEUROLOGIC: No focal neurological deficits. CN II-XII grossly intact, but not individually tested. PSYCHIATRIC: Cooperative. Appropriate mood and affect. Current Medications Medications (Trade) Dose Ordered Sig/Rubens Route PRN Reason Start Time Stop Time Status Last Admin Dose Admin Acetaminophen (TYLenol 325MG TAB) 650 mg Q6H PRN PO FEVER/HEADACHE 04/19/25 13:00 05/19/25 12:59 Acetaminophen (TYLenol 325MG TAB) 650 mg Q6H PRN PO MILD PAIN (1-3) 04/19/25 13:00 05/19/25 12:59 Atorvastatin Calcium (LIPItor 40MG) 40 mg DAILY PO 04/22/25 09:00 05/22/25 08:59 Epoetin Kin-epbx (Retacrit) 4,000 unit QTUTHSA[DIALYSIS] SQ 04/20/25 17:00 05/20/25 16:59 04/20/25 21:07 4,000 UNIT Heparin Sodium (Porcine) (HEParin 5,000 UNIT VIAL) 5,000 unit DAILY SQ 04/20/25 09:00 04/20/25 08:57 DC Insulin Human Lispro (HumaLOG LISpro 100 UNIT/ML 3ML) INSULIN SLIDING SCAL... ACHS SQ 04/19/25 16:30 05/19/25 16:29 04/21/25 13:00 6 UNIT Ondansetron HCl (zoFRAN 4MG TABLET) 4 mg Q6H PRN PO NAUSEA/VOMITING 04/19/25 13:00 05/19/25 12:59 Piperacillin Sod/ Tazobactam Sod (Zosyn 3.375gm+NS 50ml) 3.375 gm Q12H IVPB 04/19/25 13:00 04/29/25 12:59 04/21/25 12:55 3.375 GM Sodium Chloride 1,000 ml @ 0 mls/hr ONCE IV 04/20/25 15:30 05/20/25 15:29 Sodium Chloride (NS 50ml) 50 ml AD IV 04/19/25 13:00 04/19/25 12:56 DC Tamsulosin HCl (FloMAX) 0.4 mg DAILY PO 04/22/25 09:00 05/22/25 08:59 Vitamin B Complex/ Vit C/Folic Acid (Nephrovite Tablet) 1 cap DAILY PO 04/21/25 09:00 05/21/25 08:59 04/21/25 08:24 1 CAP Vitamin B Complex/ Vit C/Folic Acid (Nephrovite Tablet) 1 cap DAILY PO 04/22/25 09:00 05/22/25 08:59 LABORATORY: [ ] Hematology Labs: Test 04/23/25 07:10 Range/Units White Blood Count 6.4 4.8-10.8 K/uL Red Blood Count 2.95 L 4.50-6.20 MIL/uL Hemoglobin 9.4 L 14.0-18.0 g/dL Hematocrit 27.2 L 42-54 % Mean Corpuscular Volume 92.2 79-99 fL Mean Corpuscular Hemoglobin 31.9 27.0-33.0 pg Mean Corpuscular Hemoglobin Concent 34.6 32.0-36.0 g/dL Red Cell Distribution Width 13.8 11.0-15.5 % Platelet Count 176 130-400 K/uL Mean Platelet Volume 9.5 7.5-10.5 fL Nucleated Red Blood Cells 0.0 0.0-0.19 % Chemistry Labs: Test 04/23/25 07:10 04/23/25 05:33 04/22/25 15:44 04/22/25 09:48 Range/Units Sodium Level 132 L 136-145 mmol/L Potassium Level 4.3 3.5-5.1 mmol/L Chloride Level 92 L 101-111 mmol/L Carbon Dioxide Level 27 21-32 mmol/L Blood Urea Nitrogen 39 H 7-18 mg/dL Creatinine 4.9 H 0.5-1.3 mg/dL Glomerular Filtration Rate Calc 13 >90 mL/min Random Glucose 113 H 70-105 mg/dL Total Calcium 9.1 8.5-10.1 mg/dL Phosphorus Level 5.2 H 2.5-4.9 mg/dL Whole Blood Glucose 117 H 70-110 MG/DL Bedside Glucose Comment Notified Nurse Total Bilirubin 0.5 0.2-1.0 mg/dL Aspartate Amino Transf (AST/SGOT) 28 10-37 U/L Alanine Aminotransferase (ALT/SGPT) 40 12-78 U/L Alkaline Phosphatase 76 50-136 U/L Total Protein 6.6 6.0-8.3 g/dL Albumin 2.8 L 3.5-5.0 g/dL DIAGNOSTICS / RADIOLOGY: [facility] [address] [place] [address] IMAGING REPORT Signed PATIENT: JARED WARD MR#: [id number] : 1965 SEX: M AGE: 59 LOCATION: [facility]AH ORDER 4 STATUS: ADM IN REPORT#: [id number] SERVICE 3 REASON: hematuria ORDERING PHYSICIAN: CYNDEE DEE MD PROCEDURE: ABD PELWWO - CT ABDOMEN/PELVIS W/WO CONTRAS EXAM: CT Abdomen and Pelvis with and without IV contrast CLINICAL HISTORY: Patient presents with hematuria. TECHNIQUE: Axial computed tomography images of the abdomen and pelvis with and without intravenous contrast. CONTRAST: With and without intravenous contrast. COMPARISON: 10/11/2024. FINDINGS: LUNG BASES: Clear. No pleural effusion. LIVER: Mild hepatomegaly with right lobe measuring up to 17.0 cm in craniocaudal dimension. Hepatic steatosis. GALLBLADDER AND BILE DUCTS: Gallbladder distended with stable mild dependent hyperdense content, may represent a small calculus. No pericholecystic inflammatory changes. No biliary ductal dilatation. PANCREAS: Unremarkable. SPLEEN: Unremarkable. ADRENAL GLANDS: Unremarkable. KIDNEYS, URETERS, AND BLADDER: A stable 10.0 x 8.0 x 8.0 cm well-defined heterogeneously enhancing soft tissue density lesion with necrosis involving the right renal upper and mid poles, infiltrating the adjacent pelvicalyceal system. Fat planes with adjacent structures are maintained. Few adjacent collateral vessels. Smooth wall thickening and enhancement of the right renal pelvis and proximal ureter. A stable 6.1 x 3.7 x 3.7 cm right renal interpolar cortical cyst with few internal thin septae. A stable 2.0 cm right renal interpolar complex cyst with thin septae and few calcifications. A stable 2.0 cm simple cortical cyst in the left renal lower pole. The urinary bladder is suboptimally distended with diffuse wall thickening. Suprapubic mullen???s bulb catheter in situ. Interval resolution of previously demonstrated bladder clot. Prostate is enlarged. STOMACH AND BOWEL: Mild constipation. Postprocedural changes in the right iliac fossa. No obstruction. APPENDIX: No acute appendicitis. PERITONEUM: No free fluid. No free air. LYMPH NODES: No significant lymphadenopathy. REPRODUCTIVE: Prostate enlarged. VASCULATURE: Moderate atheromatous calcifications of the abdominal aorta and iliac arteries. No abdominal aortic aneurysm. BONES: Multilevel moderate spondylosis. No acute osseous pathology. SOFT TISSUES: Mild subcutaneous fat stranding in the left lower anterior pelvic wall, likely postprocedural sequelae. IMPRESSION: Stable heterogeneously enhancing necrotic mass lesion in the right renal upper and mid poles infiltrating the pelvicalyceal system. Multiple bilateral renal cortical cysts, including complex right renal cysts with septations and calcifications - Bosniak category II. No routine follow-up indicated. Urinary bladder wall thickening with suprapubic Mullen???s bulb catheter in situ. Interval resolution of the previously demonstrated bladder clot. Prostatomegaly. Mild hepatomegaly with diffuse steatosis. Gallbladder distension with probable small calculus, without acute cholecystitis. Recommended ultrasound correlation. Mild constipation. Recommendation: Further evaluation with MRI abdomen with renal protocol is recommended for better characterization of the renal mass and cystic lesions. Correlation with cystoscopy is advised for bladder wall thickening in the setting of hematuria. /[place] DICTATED BY: SAMI DIEHL MD DATE: 04/21/251107 ELECTRONICALLY SIGNED BY: SAMI DIEHL MD DATE: 04/21/251107 PATIENT: JARED WARD MR#: [id number] : 1965 SEX: M AGE: 59 LOCATION: [facility] ORDER 1042 STATUS: REG REPORT#: [id number] SERVICE 1040 REASON: SOB/COUGH ORDERING PHYSICIAN: AMADOU BANEGAS NP PROCEDURE: CXR1VW - CHEST 1VW Examination: Chest, 1 view Clinical history: Cough Comparison: Radiograph dated March 04, 2024 Findings: AP view of the chest is submitted. Mild bibasilar atelectasis. No pleural effusion or pneumothorax. Heart size and pulmonary vessels are within normal limits. Impression: Mild bibasilar atelectasis. Remainder of the examination is within normal limits. /[place] DICTATED BY: NIEVES VILLEGAS Jr., MD DATE: 04/19/251334 ELECTRONICALLY SIGNED BY: NIEVES VILLEGAS Jr., MD DATE: 04/19/251334 ASSESSMENT: End-stage renal disease. Anemia Sepsis Urinary tract infection Urinary retentions with history of Suprapubic catheter Hematuria. Leukocytosis. Diabetes mellitus type II Hypertension History of diverting colostomy PLAN: Labs and Diagnostics/ Radiology personally reviewed and interpreted by myself and supervising physician We have reviewed dialysis and external records in detail Continue dialysis schedule Thursday 1.5 L fluid restriction Continue to monitor H&H Epogen on dialysis days, as needed Continue with frequent monitoring of renal function, anemia, and electrolytes Order CBC, BMP, and electrolytes in the morning May use Dilaudid 0.5 mg IV every 6 hours as needed for severe pain Maintain glucose between 100-180mg/dl, AccuCheks QC and HS Monitor blood pressure adjust medication doses as needed Maintain normotensive state; keep systolic blood pressure between 110-160 Strict intake, output, and daily weight should be monitored Please renally adjust medications. Avoid nephrotoxics and nonsteroidal drugs. We will continue to monitor the patient closely We have discussed with the other team physicians in detail about the care plan ATTESTATION BY PHYSICIAN I have seen and examined the patient. I reviewed the documentation, medical decision making, and treatment plan as noted by the mid-level provider above. I agree with the findings and plan of care. JESSICA JACK MD, [facility] Apr 23, 2025 10:31
--- NOTE | 2025-04-23 14:35 | NUR ---
CALLED TO DR SALAZAR OFFICE FOR CONSULT , PER OFFICE MESSAGE NO ONE ONCALL TODAY , INFORMED PRIMARY TEAM VIK GLOVER
[2025-04-23] MEDS: BENZOCAINE/MENTH/CETYLPYRD CL 1 EACH LOZENGE MM PRN (16:24)
--- NOTE | 2025-04-23 18:26 | NUR ---
notified dr doss for consult on clearance . per md will see tomorrow
[2025-04-24] VITALS (9 sets, daily range): BP systolic 154–182; BP diastolic 58–84; PULSE 74–92; RESP 16–20; TEMP 96.2–98.4; O2SAT 98
--- NOTE | 2025-04-24 09:41 | PN ---
NEPHROLOGY PROGRESS NOTE Date/Time Patient Seen: Apr 24, 2025 SUBJECTIVE: This is a 59-year-old male with history of ESRD, on dialysis; urinary retention, hypertension, and diabetes mellitus, He presented to the hospital with fever and hematuria from the suprapubic cystostomy. The patient has end-stage renal disease and has been compliant with dialysis. Dialysis was done yesterday, he tolerated well. Hematology/oncology has been consulted for evaluation of renal mass. Continues to be followed by urology, requested cardiac clearance before discharge Pending further cardiology recommendations He tolerated dialysis without difficulty. Epogen on dialysis days He was seen in the medical floor, no acute distress Family at the bedside Prognosis remains guarded REVIEW OF SYSTEMS: GENERAL: Negative for any nausea, vomiting, fevers, chills, or weight loss. NEUROLOGIC: Negative for any blurry vision, blind spots, double vision, facial asymmetry, dysphagia, dysarthria, hemiparesis, hemisensory deficits, vertigo, ataxia. HEENT: Negative for any head trauma, neck trauma, neck stiffness, photophobia, phonophobia, sinusitis, rhinitis. CARDIAC: Negative for any chest pain, dyspnea on exertion, paroxysmal nocturnal dyspnea, peripheral edema. PULMONARY: Negative for any shortness of breath, wheezing, COPD, or TB exposure. GASTROINTESTINAL: Negative for any abdominal pain, nausea, vomiting, bright red blood per rectum, melena. GENITOURINARY: Negative for any dysuria, hematuria, incontinence. INTEGUMENTARY: Negative for any rashes, cuts, insect bites. RHEUMATOLOGIC: Negative for any joint pains, photosensitive rashes, history of vasculitis or kidney problems. HEMATOLOGIC: Negative for any abnormal bruising, frequent infections or b leeding. Vital Signs (last 8hr) Date Time Temp Pulse Resp B/P (MAP) Pulse Ox O2 Delivery O2 Flow Rate FiO2 04/24/25 08:03 170/61 04/24/25 07:54 96.3 92 16 182/84 98 Room Air 04/24/25 04:00 98.1 78 16 154/74 99 Room Air PHYSICAL EXAM: GENERAL: Alert and oriented x 3. No acute distress. Well-nourished. EYES: EOMI. Anicteric. HENT: Moist mucous membranes. No scleral icterus. No cervical lymphadenopathy. LUNGS: Clear to auscultation bilaterally. No accessory muscle use. CARDIOVASCULAR: Regular rate and rhythm. No murmur. No JVD. ABDOMEN: Soft, non-tender and non-distended. No palpable masses. EXTREMITIES: No edema. Non-tender. SKIN: No rashes or lesions. Warm. NEUROLOGIC: No focal neurological deficits. CN II-XII grossly intact, but not individually tested. PSYCHIATRIC: Cooperative. Appropriate mood and affect. Current Medications Medications (Trade) Dose Ordered Sig/[place] Route PRN Reason Start Time Stop Time Status Last Admin Dose Admin Acetaminophen (TYLenol 325MG TAB) 650 mg Q6H PRN PO FEVER/HEADACHE 04/19/25 13:00 05/19/25 12:59 Acetaminophen (TYLenol 325MG TAB) 650 mg Q6H PRN PO MILD PAIN (1-3) 04/19/25 13:00 05/19/25 12:59 Atorvastatin Calcium (LIPItor 40MG) 40 mg DAILY PO 04/22/25 09:00 05/22/25 08:59 Epoetin Kin-epbx (Retacrit) 4,000 unit QTUTHSA[DIALYSIS] SQ 04/20/25 17:00 05/20/25 16:59 04/20/25 21:07 4,000 UNIT Heparin Sodium (Porcine) (HEParin 5,000 UNIT VIAL) 5,000 unit DAILY SQ 04/20/25 09:00 04/20/25 08:57 DC Insulin Human Lispro (HumaLOG LISpro 100 UNIT/ML 3ML) INSULIN SLIDING SCAL... ACHS SQ 04/19/25 16:30 05/19/25 16:29 04/21/25 13:00 6 UNIT Ondansetron HCl (zoFRAN 4MG TABLET) 4 mg Q6H PRN PO NAUSEA/VOMITING 04/19/25 13:00 05/19/25 12:59 Piperacillin Sod/ Tazobactam Sod (Zosyn 3.375gm+NS 50ml) 3.375 gm Q12H IVPB 04/19/25 13:00 04/29/25 12:59 04/21/25 12:55 3.375 GM Sodium Chloride 1,000 ml @ 0 mls/hr ONCE IV 04/20/25 15:30 05/20/25 15:29 Sodium Chloride (NS 50ml) 50 ml AD IV 04/19/25 13:00 04/19/25 12:56 DC Tamsulosin HCl (FloMAX) 0.4 mg DAILY PO 04/22/25 09:00 05/22/25 08:59 Vitamin B Complex/ Vit C/Folic Acid (Nephrovite Tablet) 1 cap DAILY PO 04/21/25 09:00 05/21/25 08:59 04/21/25 08:24 1 CAP Vitamin B Complex/ Vit C/Folic Acid (Nephrovite Tablet) 1 cap DAILY PO 04/22/25 09:00 05/22/25 08:59 LABORATORY: [ ] Hematology Labs: Test 04/23/25 07:10 Range/Units White Blood Count 6.4 4.8-10.8 K/uL Red Blood Count 2.95 L 4.50-6.20 MIL/uL Hemoglobin 9.4 L 14.0-18.0 g/dL Hematocrit 27.2 L 42-54 % Mean Corpuscular Volume 92.2 79-99 fL Mean Corpuscular Hemoglobin 31.9 27.0-33.0 pg Mean Corpuscular Hemoglobin Concent 34.6 32.0-36.0 g/dL Red Cell Distribution Width 13.8 11.0-15.5 % Platelet Count 176 130-400 K/uL Mean Platelet Volume 9.5 7.5-10.5 fL Nucleated Red Blood Cells 0.0 0.0-0.19 % Chemistry Labs: Test 04/24/25 05:03 04/23/25 11:20 04/23/25 07:10 04/22/25 09:48 Range/Units Whole Blood Glucose 142 H 70-110 MG/DL Bedside Glucose Comment Notified Nurse Sodium Level 132 L 136-145 mmol/L Potassium Level 4.3 3.5-5.1 mmol/L Chloride Level 92 L 101-111 mmol/L Carbon Dioxide Level 27 21-32 mmol/L Blood Urea Nitrogen 39 H 7-18 mg/dL Creatinine 4.9 H 0.5-1.3 mg/dL Glomerular Filtration Rate Calc 13 >90 mL/min Random Glucose 113 H 70-105 mg/dL Total Calcium 9.1 8.5-10.1 mg/dL Phosphorus Level 5.2 H 2.5-4.9 mg/dL Total Bilirubin 0.5 0.2-1.0 mg/dL Aspartate Amino Transf (AST/SGOT) 28 10-37 U/L Alanine Aminotransferase (ALT/SGPT) 40 12-78 U/L Alkaline Phosphatase 76 50-136 U/L Total Protein 6.6 6.0-8.3 g/dL Albumin 2.8 L 3.5-5.0 g/dL DIAGNOSTICS / RADIOLOGY: [place] [facility] [address] [place] [address] IMAGING REPORT Signed PATIENT: JARED WARD MR#: [id number] : 1965 SEX: M AGE: 59 LOCATION: [facility] ORDER 4 STATUS: ADM IN REPORT#: [id number] SERVICE 3 REASON: hematuria ORDERING PHYSICIAN: CYNDEE DEE MD PROCEDURE: ABD PELWWO - CT ABDOMEN/PELVIS W/WO CONTRAS EXAM: CT Abdomen and Pelvis with and without IV contrast CLINICAL HISTORY: Patient presents with hematuria. TECHNIQUE: Axial computed tomography images of the abdomen and pelvis with and without intravenous contrast. CONTRAST: With and without intravenous contrast. COMPARISON: 10/11/2024. FINDINGS: LUNG BASES: Clear. No pleural effusion. LIVER: Mild hepatomegaly with right lobe measuring up to 17.0 cm in craniocaudal dimension. Hepatic steatosis. GALLBLADDER AND BILE DUCTS: Gallbladder distended with stable mild dependent hyperdense content, may represent a small calculus. No pericholecystic inflammatory changes. No biliary ductal dilatation. PANCREAS: Unremarkable. SPLEEN: Unremarkable. ADRENAL GLANDS: Unremarkable. KIDNEYS, URETERS, AND BLADDER: A stable 10.0 x 8.0 x 8.0 cm well-defined heterogeneously enhancing soft tissue density lesion with necrosis involving the right renal upper and mid poles, infiltrating the adjacent pelvicalyceal system. Fat planes with adjacent structures are maintained. Few adjacent collateral vessels. Smooth wall thickening and enhancement of the right renal pelvis and proximal ureter. A stable 6.1 x 3.7 x 3.7 cm right renal interpolar cortical cyst with few internal thin septae. A stable 2.0 cm right renal interpolar complex cyst with thin septae and few calcifications. A stable 2.0 cm simple cortical cyst in the left renal lower pole. The urinary bladder is suboptimally distended with diffuse wall thickening. Suprapubic mullen???s bulb catheter in situ. Interval resolution of previously demonstrated bladder clot. Prostate is enlarged. STOMACH AND BOWEL: Mild constipation. Postprocedural changes in the right iliac fossa. No obstruction. APPENDIX: No acute appendicitis. PERITONEUM: No free fluid. No free air. LYMPH NODES: No significant lymphadenopathy. REPRODUCTIVE: Prostate enlarged. VASCULATURE: Moderate atheromatous calcifications of the abdominal aorta and iliac arteries. No abdominal aortic aneurysm. BONES: Multilevel moderate spondylosis. No acute osseous pathology. SOFT TISSUES: Mild subcutaneous fat stranding in the left lower anterior pelvic wall, likely postprocedural sequelae. IMPRESSION: Stable heterogeneously enhancing necrotic mass lesion in the right renal upper and mid poles infiltrating the pelvicalyceal system. Multiple bilateral renal cortical cysts, including complex right renal cysts with septations and calcifications - Bosniak category II. No routine follow-up indicated. Urinary bladder wall thickening with suprapubic Mullen???s bulb catheter in situ. Interval resolution of the previously demonstrated bladder clot. Prostatomegaly. Mild hepatomegaly with diffuse steatosis. Gallbladder distension with probable small calculus, without acute cholecystitis. Recommended ultrasound correlation. Mild constipation. Recommendation: Further evaluation with MRI abdomen with renal protocol is recommended for better characterization of the renal mass and cystic lesions. Correlation with cystoscopy is advised for bladder wall thickening in the setting of hematuria. /[place] DICTATED BY: SAMI DIEHL MD DATE: 04/21/251107 ELECTRONICALLY SIGNED BY: SAMI DIEHL MD DATE: 04/21/251107 PATIENT: JARED WARD MR#: [id number] : 1965 SEX: M AGE: 59 LOCATION: [facility] ORDER 104 STATUS: REG ER REPORT#: [id number] SERVICE 1040 REASON: SOB/COUGH ORDERING PHYSICIAN: AMADOU BANEGAS NP PROCEDURE: CXR1VW - CHEST 1VW Examination: Chest, 1 view Clinical history: Cough Comparison: Radiograph dated March 04, 2024 Findings: AP view of the chest is submitted. Mild bibasilar atelectasis. No pleural effusion or pneumothorax. Heart size and pulmonary vessels are within normal limits. Impression: Mild bibasilar atelectasis. Remainder of the examination is within normal limits. /[place] DICTATED BY: NIEVES VILLEGAS Jr., MD DATE: 04/19/251334 ELECTRONICALLY SIGNED BY: NIEVES VILLEGAS Jr., MD DATE: 04/19/251334 ASSESSMENT: End-stage renal disease. Anemia Sepsis Urinary tract infection Urinary retentions with history of Suprapubic catheter Hematuria. Leukocytosis. Diabetes mellitus type II Hypertension History of diverting colostomy PLAN: Labs and Diagnostics/ Radiology personally reviewed and interpreted by myself and supervising physician We have reviewed dialysis and external records in detail Continue dialysis schedule Thursday Pending further cardiology recommendations 1.5 L fluid restriction Continue to monitor H&H Epogen on dialysis days, as needed Continue with frequent monitoring of renal function, anemia, and electrolytes Order CBC, BMP, and electrolytes in the morning May use Dilaudid 0.5 mg IV every 6 hours as needed for severe pain Monitor blood pressure adjust medication doses as needed Maintain normotensive state Strict intake, output, and daily weight should be monitored Please renally adjust medications. Avoid nephrotoxics and nonsteroidal drugs. We will continue to monitor the patient closely We have discussed with the other team physicians in detail about the care plan ATTESTATION BY PHYSICIAN I have seen and examined the patient. I reviewed the documentation, medical decision making, and treatment plan as noted by the mid-level provider above. I agree with the findings and plan of care. JESSICA JACK MD, [facility] Apr 24, 2025 09:41
--- NOTE | 2025-04-24 15:06 | HMCSR ---
APPROVED REPORT EXAM: Two-dimensional and M-mode echocardiogram with Doppler and color Doppler. INDICATION ICD: cardiac evaluation Pre-Op 2D Dimensions RVDd3.7 cmLVEF(%)67.6 (>50%)LVED Vol(simp.)99.5 mL IVSd0.9 (0.7-1.1cm)FS(%)38 %LVES Vol(simp.)48.1 mL LVDd4.8 (3.8-5.6cm)LA (2D)3.5 (1.6-4.0cm)LVEF(%, simp.)52 % PWd1.1 (0.7-1.1cm)Ao Root(2D)3.3 (2.0-3.7cm)LA ESV INDEX (BP)29.28 mL/m2 LVDs3.0 (2.5-4.0cm)LVOT diam2.2 (1.8-2.4cm) IVC diam1.7 cm Deformation Strain Apical 4-17.4 % Apical 2-17.0 % Apical 3-11.0 % Global Strain-15.1 % M-Mode Dimensions EPSS1.1 cm LA (MM)4.0 (1.6-4.0cm) Ao Root(MM)2.9 (2.0-3.7cm) Aortic Valve AoV Vmax1.2 m/Vivienne Peak GR5.9 mmHgLVOT Vmax1.0 m/s AoV VTI0.3 mAo Mean GR3.2 mmHgLVOT VTI0.22 m TONY (VMAX)3.20 cm2AVA (VTI) 3.2 cm2 Mitral Valve MV E Ojdz512.9 cm/sDECEL Nisk301 ms MV A Vmax90.1 cm/sP 1/2 T62 ms E/A ratio1.1MVA (PHT)3.5 cm2 TDI E/E' Iyddlg86.3E/E' Lateral9.1 Medial E' Peak V8.95 cm/sLateral E' Peak V11.13 cm/s Pulmonary Valve PV Vmax1.5 m/sPV VTI0.27 mPV Mean GR4.4 mmHg PV Peak GR8.9 mmHg Left Ventricle The left ventricle is normal size. There is normal left ventricular wall thickness. LVEF is 50-55%. T he left ventricular diastolic function is normal. Right Ventricle The right ventricle is normal size. The right ventricular systolic function is normal. Atria The left atrium size is normal. The right atrium size is normal. Aortic Valve The aortic valve is normal in structure. No aortic regurgitation is present. There is no aortic valvu lar stenosis. Mitral Valve The mitral valve is normal in structure. Mitral regurgitation is trace. There is no mitral valve sten osis. Tricuspid Valve The tricuspid valve is normal in structure. There is no tricuspid valve regurgitation noted. Pulmonic Valve The pulmonary valve is normal in structure. There is no pulmonic valvular regurgitation. Great Vessels The aortic root is normal in size. The IVC is normal in size and collapses >50% with inspiration. Pericardium There is no pericardial effusion. Conclusion The left ventricle is normal size. LVEF is 50-55%. The left ventricular diastolic function is normal. The right ventricle is normal size. The right ventricular systolic function is normal. The left atrium size is normal. The right atrium size is normal. No valvular pathology. There is no pericardial effusion.
--- NOTE | 2025-04-24 17:10 | CONS ---
[facility] CARDIOLOGY CONSULTATION NOTE Date Patient Seen: Apr 24, 2025 Time of Visit: 17:07 Reason for Consultation: [ preop evaluation] History of Present Illness: [ Patient is a 59-year-old male with history of ESRD on dialysis, urinary retention, hypertension, and diabetes mellitus type II who presented to the hospital with hematuria from the penis and from the suprapubic cystostomy. The patient also complained of some fever. In the ER, he was found to be febrile to 103, WBC was elevated at 15,000. No chest pain or shortness of breath. 2d echo with normal LVEF, no valvular pathology. No family h/o CAD. ] Past Medical History: [ ] Past Surgical History: [ ] Family History: [ ] Social History: [ ] Habits: [Never] smoker. [Denies] alcohol consumption. [Denies] illicit drug use Home Meds: [ ] Current Meds: [ ] Review of Systems: CONST: [No fever, fatigue, or weight changes.] EYES: [No recent vision problems.] ENT: [No congestion, ear pain, or sore throat.] C/V: [No chest pain, palpitations, or edema.] RESP: [No cough, congestion, wheezing or shortness of breath.] GI: [No abdominal pain, nausea, vomiting, constipation, or diarrhea.] : [No incontinence or dysuria.] SKIN: [No rash.] NEURO: [No headache, focal numbness or weakness, dizziness, or seizures.] PSYCH: [No depression or anxiety.] HEME: [No abnormal bruising or bleeding.] LYMPH: [No swollen glands.] Physical Examination: GENERAL: [No acute distress.] HEAD: [Normal with no signs of head trauma.] EYES: [PERRLA, EOMI, conjunctiva and sclera normal.] ENT: [Hearing grossly intact, normal oropharynx.] NECK: [Supple without JVD. There is no tenderness, lymphadenopathy, or masses. No thyromegaly. Normal carotid upstrokes without bruits.] LUNGS: [Clear breath sounds bilaterally. There are right basilar rales one third of the way up the chest. No wheezes, or rhonchi.] HEART: [Normal rate and rhythm. Normal S1 and S2 without mumurs, gallop or rub.] VASC: [Peripheral pulses +2 bilaterally.] ABD: [Bowel sounds normal, soft, nontender, no masses, no organomegaly. No audible bruits.] : [Not examined] LYMPH: [No lymphadenopathy noted.] EXT: [No clubbing, cyanosis or edema.] SKIN: [No rashes or lesions noted.] NEURO: [Awake, alert, and oriented x3. No focal sensory or strength deficits noted.] Vital Signs (last 8hr) Date Time Temp Pulse Resp B/P (MAP) Pulse Ox O2 Delivery O2 Flow Rate FiO2 04/24/25 16:11 98.2 74 18 157/80 99 Room Air 04/24/25 11:18 96.4 80 16 156/69 99 Room Air 04/24/25 09:52 155/58 Laboratory: [ ] Hematology Labs: Test 04/23/25 07:10 Range/Units White Blood Count 6.4 4.8-10.8 K/uL Red Blood Count 2.95 L 4.50-6.20 MIL/uL Hemoglobin 9.4 L 14.0-18.0 g/dL Hematocrit 27.2 L 42-54 % Mean Corpuscular Volume 92.2 79-99 fL Mean Corpuscular Hemoglobin 31.9 27.0-33.0 pg Mean Corpuscular Hemoglobin Concent 34.6 32.0-36.0 g/dL Red Cell Distribution Width 13.8 11.0-15.5 % Platelet Count 176 130-400 K/uL Mean Platelet Volume 9.5 7.5-10.5 fL Nucleated Red Blood Cells 0.0 0.0-0.19 % Chemistry Labs: Test 04/24/25 16:00 04/24/25 10:55 04/23/25 07:10 Range/Units Whole Blood Glucose 158 H 70-110 MG/DL Bedside Glucose Comment Notified Nurse Sodium Level 132 L 136-145 mmol/L Potassium Level 4.3 3.5-5.1 mmol/L Chloride Level 92 L 101-111 mmol/L Carbon Dioxide Level 27 21-32 mmol/L Blood Urea Nitrogen 39 H 7-18 mg/dL Creatinine 4.9 H 0.5-1.3 mg/dL Glomerular Filtration Rate Calc 13 >90 mL/min Random Glucose 113 H 70-105 mg/dL Total Calcium 9.1 8.5-10.1 mg/dL Phosphorus Level 5.2 H 2.5-4.9 mg/dL Diagnostics / Radiology: [Copy/Paste Echos/Imaging Report here] Assessment: [ End-stage renal disease on HD Anemia Sepsis Urinary tract infection Urinary retentions with history of Suprapubic catheter Hematuria. Leukocytosis. Diabetes mellitus type II Hypertension History of diverting colostomy ] Plan: [#Preoperative cardiac evaluation - ECG is normal and no ST-T changes -2d echo normal LVEF, no valvular pathology -Trop negative -he is able to perform >4METs without shortness of breath or chest pain No further cardiac testing is required before his nephrectomy. I will sign off. Maddie Carter MD ] MADDIE CARTER MD Apr 24, 2025 17:10
--- NOTE | 2025-04-24 17:18 | EKG ---
[facility] Test Date: 2025-04-24 Test Time: 17:12:47 Pat Name: JARED WARD Department: [facility] Room: 429 1 Gender: M [employer] Operator: HALINA : 1965 Requested By: ALISTAIR NATARAJAN Order Number: [id number] Reading MD: Damon Smith Measurements Intervals [place] Rate: 77 P: 51 LA: 150 QRS: 14 QRSD: 98 T: 46 QT: 420 QTc: 475 Interpretive Statements Normal sinus rhythm Compared to ECG 04/19/2025 10:51:22 Sinus tachycardia no longer present ST (T wave) deviation no longer present Electronically Signed On 04-25-2025 17:23:43 CDT by Damon Smith Please click the below link to view image of tracing.
--- NOTE | 2025-04-24 17:51 | PN ---
INFECTIOUS DISEASE PROGRESS NOTE Date of Service: Apr 24, 2025 SUBJECTIVE: This is a 59 year old male patient who was seen at bedside room 429. Patient is awake, alert and oriented. Sitting up on the bedside chair. Urologist has re-evaluated patient and recommended a right radical nephrectomy/possible open nephrectomy and during rounding today patient is pending a cardiology evaluation for surgical clearance. No hematuria observed in the suprapubic Holden bag. Continues on Zosyn for UTI. We will obtain CBC in a.m. to follow up on the hemoglobin. PHYSICAL EXAM EYES: Anicteric. Pupils equal and reactive. HENT: No oral thrush seen, moist Oral mucosa NECK: Supple, no JVD or thyromegaly. LUNGS: Good air entry. No rales, no rhonchi. CARDIOVASCULAR: S1, S2 regular. No murmur heard. ABDOMEN: Soft, non tender, bowel sounds present, no organomegaly CENTRAL NERVOUS SYSTEM: Awake, alert, oriented x 3. SKIN: No rashes, no swelling. LYMPHATICS: No peripheral lymphadenopathy MUSCULOSKELETAL: No joint swelling, erythema or tenderness. EXTREMITIES: No cyanosis or clubbing BACK: No deformity, no pressure ulcer. GENITOURINARY: Hematuria. Suprapubic catheter. Vital Sign (Last 12 Hours) 04/24/25 04/24/25 04/24/25 04/24/25 07:54 08:00 08:03 09:52 Temp 96.3 Pulse 92 Resp 16 B/P (MAP) 182/84 170/61 155/58 Pulse Ox 98 98 O2 Delivery Room Air Room Air* O2 Flow Rate 0 FiO2 21 04/24/25 04/24/25 11:18 16:11 Temp 96.4 98.2 Pulse 80 74 Resp 16 18 B/P (MAP) 156/69 157/80 Pulse Ox 99 99 O2 Delivery Room Air Room Air Intake & Output (last 24hrs) 04/23/25 04/23/25 04/24/25 15:00 23:00 07:00 Intake Total 1100 ml 600 ml 250 ml Output Total 600 ml Balance 1100 ml 600 ml -350 ml LABS: Laboratory: Test 04/24/25 16:00 04/24/25 10:55 04/23/25 07:10 Range/Units Whole Blood Glucose 158 H 70-110 MG/DL Bedside Glucose Comment Notified Nurse White Blood Count 6.4 4.8-10.8 K/uL Red Blood Count 2.95 L 4.50-6.20 MIL/uL Hemoglobin 9.4 L 14.0-18.0 g/dL Hematocrit 27.2 L 42-54 % Mean Corpuscular Volume 92.2 79-99 fL Mean Corpuscular Hemoglobin 31.9 27.0-33.0 pg Mean Corpuscular Hemoglobin Concent 34.6 32.0-36.0 g/dL Red Cell Distribution Width 13.8 11.0-15.5 % Platelet Count 176 130-400 K/uL Mean Platelet Volume 9.5 7.5-10.5 fL Nucleated Red Blood Cells 0.0 0.0-0.19 % Sodium Level 132 L 136-145 mmol/L Potassium Level 4.3 3.5-5.1 mmol/L Chloride Level 92 L 101-111 mmol/L Carbon Dioxide Level 27 21-32 mmol/L Blood Urea Nitrogen 39 H 7-18 mg/dL Creatinine 4.9 H 0.5-1.3 mg/dL Glomerular Filtration Rate Calc 13 >90 mL/min Random Glucose 113 H 70-105 mg/dL Total Calcium 9.1 8.5-10.1 mg/dL Phosphorus Level 5.2 H 2.5-4.9 mg/dL ASSESSMENT: Urinary tract infection with pseudomonas aeruginosa Hematuria, resolving. Leukocytosis, resolved. Diabetes mellitus. End-stage renal disease, on dialysis. Renal mass. PLAN: Continue Zosyn. Oncology has been consulted and pending evaluation Continue antidiabetics. Continue to monitor hemoglobin. Continue dialysis recommended by supervisor pipe joints. Urologist has re-evaluated patient and recommended for right radical nephrectomy/possible open nephrectomy this month. Pending cardiology evaluation for surgical clearance as requested by urologist. This case was reviewed and discussed with my supervising physician Dr. Rodriguez and the above assessment and plan was formulated and agreed upon. ATTESTATION BY PHYSICIAN I have seen and examined the patient. I reviewed the documentation, medical decision making, and treatment plan as noted by the mid-level provider above. I agree with the findings and plan of care. CYNDEE RODRIGUEZ MD, MIRTA L [facility] Apr 24, 2025 17:51
[2025-04-25] VITALS (20 sets, daily range): BP systolic 115–166; BP diastolic 58–73; PULSE 62–88; RESP 16–20; TEMP 97.5–98.3; O2SAT 98
--- NOTE | 2025-04-25 04:06 | NUR ---
AM LABS PT REFUSING LABS, EXPLAINED IMPORTANCE OF LABS HE STILL REFUSED.
--- NOTE | 2025-04-25 04:43 | NUR ---
LABS SPOKE WITH CHARANJIT AT LAB, THAT PT HAS AGREED TO LABS BUT DURING DIALYSIS. CHARANJIT IN LAB WILL PASS ON. THIS NURSE WILL PASS ON TO ONCOMING SHIFT.
[2025-04-25 09:46] LABS: IMMATURE GRANULOCYTE ABSOLUTE 0.09 K/uL (0-1); NUCLEATED RED BLOOD CELLS 0.0 % (0.0-0.19); PLATELET COUNT (AUTO) 206 K/uL (130-400); RED BLOOD CELL COUNT(AUTO) 2.75 MIL/uL (4.50-6.20); RED CELL DISTRIBUTION WIDTH 14.1 % (11.0-15.5); WHITE BLOOD COUNT (AUTO) 9.0 K/uL (4.8-10.8)
[2025-04-25 10:01] LABS: ASPARTATE AMINOTRANSFERASE 19.0 U/L (10-37); CREATININE 4.2 mg/dL (0.5-1.3); GLOMERULAR FILTR. RATE CALC 15.0 mL/min (>90); GLUCOSE,RANDOM 150.0 mg/dL (70-105); PHOSPHORUS 3.9 mg/dL (2.5-4.9); SODIUM SERUM 133.0 mmol/L (136-145); TOTAL PROTEIN, SERUM 6.9 g/dL (6.0-8.3); UREA NITROGEN, BLOOD 33.0 mg/dL (7-18)
--- NOTE | 2025-04-25 11:30 | NUR ---
SPOKE TO NIKO REGARDING POTASSIUM LEVEL OF 3.7. NIKO VERBALIZED NO REPLACEMENT NEEDED AT THIS TIME.
--- NOTE | 2025-04-25 14:51 | NUR ---
DISCHARGE PATIENT WAS EDUCATED ON PREVENTING FALLS AT HOME AND DIALYSIS TREATMENT. PATIENT AND VERBALIZED UNDERSTANDING. IV WAS REMOVED WITHOUT COMPLICATIONS. PATIENT WAS TRANSPORTED TO THE MAIN LOBBY VIA W/C BY [employer]ER. NO S/S OF DISTRESS NOTED.
--- NOTE | 2025-04-25 17:26 | CONS ---
CONSULT NOTE: A 59-year-old male with history of ESRD, on dialysis; urinary retention, hypertension, and diabetes mellitus, presented to the hospital with the above complaint. The patient noticed hematuria from the penis and from the suprapubic cystostomy. The patient also complained of some fever. Early in the Emergency Room, T-max was 103, WBC was elevated at 15,000. Has some nausea and vomiting, but no diarrhea. No bleeding tendency. No sick contact. The patient has end-stage renal disease and has been compliant with dialysis. PAST MEDICAL HISTORY: * ESRD, on dialysis. * Diabetes mellitus. * Hypertension. * Peroneal abscess. * Right renal cancer. * Urinary retention. * UTI. PAST SURGICAL HISTORY: * Suprapubic cystostomy. * AV fistula surgery. * Diverting colostomy. * Incision and drainage of perineal abscess. * Cystoscopy. ALLERGIES: No known drug allergies. HOME MEDICATIONS: To be reviewed. SOCIAL HISTORY: . No alcohol, tobacco, or illicit drug use. FAMILY HISTORY: Positive for diabetes mellitus. REVIEW OF SYSTEMS: CONSTITUTIONAL: Positive for fever and chills. No weight loss or night sweats. EYES: No eye pain. No photophobia or diplopia. HENT: No sore throat. No rhinorrhea or earache. NECK: No neck pain or neck swelling. RESPIRATORY: No cough. No hemoptysis or pleuritic pain. CARDIOVASCULAR: No chest pain. No palpitation or orthopnea. GASTROINTESTINAL: Positive for nausea and vomiting. No diarrhea. No abdominal pain. GENITOURINARY: Positive for hematuria. CENTRAL NERVOUS SYSTEM: No headache, dyspnea or slurred speech. PSYCHIATRY: No depression. No suicidal ideation. MUSCULOSKELETAL: No joint pain or joint swelling. PHYSICAL EXAMINATION: GENERAL: Elderly male, awake. VITAL SIGNS: Temperature 103.8, pulse 111, respiratory rate 20, BP 161/64. EYES: No icterus. Pupils equal and reactive. HENT: No oral thrush seen. Moist oral mucosa. NECK: Supple. No JVD or thyromegaly. LUNGS: Good air entry. No rales. No rhonchi. CARDIOVASCULAR SYSTEM: S1 and S2 regular. No murmur heard. ABDOMEN: Full, soft, nontender. Bowel sound is present. CENTRAL NERVOUS SYSTEM: Awake, alert, oriented x 3. No focal deficits. SKIN: No rashes. No itchiness. LYMPHATIC: No peripheral lymphadenopathy. BACK: No deformity. No pressure ulcer. GENITOURINARY: The patient has Holden catheter and suprapubic cystostomy drainage bloody fluid. The patient also has hematuria from the penis. LABORATORY DATA: Sodium 130, potassium 4.8, BUN 39, creatinine 1.4. WBC 15.1, hemoglobin 11.1, platelet 149. COVID PCR negative. Urinalysis, wbc too numerous to count. RADIOLOGY: Chest x-ray unremarkable. ASSESSMENT: 1. Large right kidney mass 10 x 8.0 cm consistent with malignancy 2. Hematuria 3. Hypertension 4. Hyperlipidemia 5. End-stage renal disease on hemodialysis. Plan 1. I review the results of CT scan with the patient and family. The gleevac legs this patient have a clear-cell carcinoma with the patient may be need surgery to be done. It seems the patient was evaluated by urology and there is plan for surgery to be done in 2 weeks. 2. Have this patient have surgery done in 2 weeks this patient to follow-up with me in 5 weeks. Will evaluate if this patient will need adjuvant chemotherapy treatment I have long discussion with the patient and family member regarding the plan of care. I answer all question and concern and I spent more than 35 minutes. Laboratory Tests Test 04/24/25 20:23 04/25/25 05:15 04/25/25 09:38 04/25/25 10:50 Whole Blood Glucose 195 MG/DL (70-110) H 103 MG/DL (70-110) 124 MG/DL (70-110) H White Blood Count 9.0 K/uL (4.8-10.8) Red Blood Count 2.75 MIL/uL (4.50-6.20) L Hemoglobin 8.7 g/dL (14.0-18.0) L Hematocrit 25.4 % (42-54) L Mean Corpuscular Volume 92.4 fL (79-99) Mean Corpuscular Hemoglobin 31.6 pg (27.0-33.0) Mean Corpuscular Hemoglobin Concent 34.3 g/dL (32.0-36.0) Red Cell Distribution Width 14.1 % (11.0-15.5) Platelet Count 206 K/uL (130-400) Mean Platelet Volume 9.3 fL (7.5-10.5) Immature Granulocyte % (Auto) 1.0 % (0-1) Neutrophils (%) (Auto) 69.3 % (40.0-77.0) Lymphocytes (%) (Auto) 18.5 % (21.0-51.0) L Monocytes (%) (Auto) 6.4 % (3.0-13.0) Eosinophils (%) (Auto) 4.1 % (0.0-8.0) Basophils (%) (Auto) 0.7 % (0.0-5.0) Neutrophils # (Auto) 6.2 K/uL (1.8-7.7) Lymphocytes # (Auto) 1.7 K/uL (1.0-4.8) Monocytes # (Auto) 0.6 K/uL (0.1-1.0) Eosinophils # (Auto) 0.37 K/uL (0.00-0.70) Basophils # (Auto) 0.06 K/uL (0.00-0.20) Absolute Immature Granulocyte (auto 0.09 K/uL (0-1) Nucleated Red Blood Cells 0.0 % (0.0-0.19) Sodium Level 133 mmol/L (136-145) L Potassium Level 3.7 mmol/L (3.5-5.1) Chloride Level 97 mmol/L (101-111) L Carbon Dioxide Level 26 mmol/L (21-32) Blood Urea Nitrogen 33 mg/dL (7-18) H Creatinine 4.2 mg/dL (0.5-1.3) H Glomerular Filtration Rate Calc 15 mL/min (>90) Random Glucose 150 mg/dL (70-105) H Total Calcium 8.5 mg/dL (8.5-10.1) Phosphorus Level 3.9 mg/dL (2.5-4.9) Magnesium Level 1.90 mg/dL (1.80-2.40) Total Bilirubin 0.5 mg/dL (0.2-1.0) Aspartate Amino Transf (AST/SGOT) 19 U/L (10-37) Alanine Aminotransferase (ALT/SGPT) 30 U/L (12-78) Alkaline Phosphatase 64 U/L (50-136) Total Protein 6.9 g/dL (6.0-8.3) Albumin 3.0 g/dL (3.5-5.0) GABRIELA NUÑEZ MD Apr 25, 2025 17:26
--- NOTE | 2025-04-25 20:55 | PN ---
SUBJECTIVE: The patient has been evaluated and seen for dialysis and seen several times. This patient has no fever, chills, or rigors with no cough, expectoration, hemoptysis. No abdominal pain, no nausea, or vomiting. . No other associated findings. The patient treated for UTI. The patient has hematuria, large renal mass for which surgery is needed. PHYSICAL EXAMINATION: GENERAL: Pale, no other distress. VITAL SIGNS: Blood pressure has been 145/70, pulse 74, respiratory rate is 18, afebrile. HEENT: Head is atraumatic, normocephalic. Pupils are round and reactive. Sclerae are anicteric. Conjunctivae not pale. Oral mucosa is not dry. NECK: Without masses or bruits. Thyroid is palpable. Neck has no bruits. CHEST: Shows equal thoracic percussion. CARDIAC: Regular rhythm. No rub. No S3, S4. LABORATORY DATA: We have reviewed the labs in detail with hemoglobin of 8.7. Chemistries reviewed. PROBLEMS: * Renal failure. * Anemia. * Renal mass. * Urinary tract infection. PLAN: * The patient is continued with supportive care. * CT scan has been reviewed with the patient. The patient needs surgery, possible nephrectomy, and followup with the urologist. Continue dialysis support. The patient will need close monitoring and followup, seen several times today. I have discussed with other team members and will be following up closely. Condition remain guarded. TID: [id number] RECEIPT: [id number]
--- NOTE | 2025-04-25 21:42 | PN ---
NEPHROLOGY NOTE SUBJECTIVE: Nephrology note for hemodialysis. The patient has been evaluated, seen several times today. He remains anemic. He has still hematuria. He has a large renal mass, which need a nephrectomy most likely. No fevers, chills, or rigors. No other associated findings. No other aggravating or relieving factors. No other associated symptoms. PHYSICAL EXAMINATION: GENERAL: Pale, in no other distress or deformities, lying in bed. VITAL SIGNS: Blood pressure is 118/70, respiratory rate is 18. Afebrile. HEENT: Head is atraumatic, normocephalic. Pupils are round and reactive to light. Sclerae are anicteric. Conjunctivae not pale. Oral mucosa is not dry. NECK: Supple. No masses or bruits. Thyroid is palpable. Neck has no bruits. CHEST: Shows equal thoracic percussion note being resonant in all areas. CARDIAC: Regular rhythm. No rubs. No S3, S4. No parasternal heave. Apical beat is not localized. ABDOMEN: With no guarding, tenderness. Bowel sounds are present. No free fluid. LABORATORY DATA: Labs have been reviewed. Old records reviewed. Labs have shown hemoglobin and hematocrit has been low. Old records reviewed. IMAGING STUDIES: Imaging studies are personally reviewed. PROBLEMS: * Renal failure. * Anemia. PLAN: Continue monitoring. Follow up on renal function. Follow up on electrolytes. Intake, output, weight will be monitored. Nonsteroidal drugs to be avoided. Dose of medicine to be adjusted and continue to follow. Overall condition remains guarded. The patient was seen several times today. This patient was seen on dialysis multiple times. TID: [id number] RECEIPT: [id number]
--- NOTE | 2025-04-25 22:48 | DS ---
Discharge Summary Hospital Course FINAL DISCHARGE DIAGNOSIS: Urinary tract infection with pseudomonas aeruginosa Hematuria, resolving. Leukocytosis, resolved. Diabetes mellitus. End-stage renal disease, on dialysis. Renal mass. PLAN: Discharge patient to home today. Follow up with Dr. Doe in 2 weeks. Follow up with Dr Stevenson in 5 weeks. With PCP in 3-5 days. This case was reviewed and discussed with my supervising physician Dr. Dee and the above assessment and plan was formulated and agreed upon. ATTESTATION BY PHYSICIAN I have seen and examined the patient. I reviewed the documentation, medical decision making, and treatment plan as noted by the mid-level provider above. I agree with the findings and plan of care. CYNDEE DEE MD, MIRTA L [facility] Apr 25, 2025 22:48
== END 2025-04-25 14:51 | disposition home or self-care (01) | DRG 871 ==
LOC: EDH 10:32 → EDHIP 12:47 → 4AH 22:05
PROVIDERS: ADMIT Internal Medicine Infectious Disease; ATTEND Internal Medicine Infectious Disease
PROC: 5A1D70Z Performance of Urinary Filtration, Intermittent, Less than 6 Hours Per Day (ICD-10-PCS; principal; 2025-04-22)
PROC: 5A1D70Z Performance of Urinary Filtration, Intermittent, Less than 6 Hours Per Day (ICD-10-PCS; 2025-04-25)
DX: A41.9 Sepsis, unspecified organism (principal); N18.6 End stage renal disease; N30.01 Acute cystitis with hematuria; I12.0 Hypertensive chronic kidney disease with stage 5 chronic kidney disease or end stage renal disease; L02.215 Cutaneous abscess of perineum; Z20.822 Contact with and (suspected) exposure to COVID-19; E11.22 Type 2 diabetes mellitus with diabetic chronic kidney disease; B96.5 Pseudomonas (aeruginosa) (mallei) (pseudomallei) as the cause of diseases classified elsewhere; D64.9 Anemia, unspecified; E66.9 Obesity, unspecified; E78.5 Hyperlipidemia, unspecified; N28.89 Other specified disorders of kidney and ureter; Z99.2 Dependence on renal dialysis; Z83.3 Family history of diabetes mellitus; Z85.528 Personal history of other malignant neoplasm of kidney; Z90.5 Acquired absence of kidney; Z93.3 Colostomy status; Z79.899 Other long term (current) drug therapy; Z68.28 Body mass index [BMI] 28.0-28.9, adult
CPT/HCPCS: 36415; 71045; 74178; 80048; 80053; 81001; 82728; 82948; 83036; 83540; 83550; 83605; 83735; 84100; 84484; 85025; 85027; 86704; 86706; 86803; 87040; 87086; 87186; 87340; 87426; 90935; 93005; 93306; 93356; 96365; 99285; G0378; J0696; J1644; J2543; Q5106

== ENCOUNTER 2025-08-04 15:08 | Emergency (ER) | payer MEDICARE ==
[~2025-08-04] VITALS: Ht 167.6 cm; Wt 81.6 kg
--- NOTE | 2025-08-04 15:14 | ERN ---
ED Note History of Present Illness Stated Complaint: LOWER EXTREMITY WEAKNESS Chief Complaint: Lower Extremity Pain/Injury Time Seen by MD: 15:12 Time Seen by Midlevel: 15:20 Dictation: Mr Moore is a 59 year old gentleman with history of hypertension, hyperlipidemia, and type 2 diabetes presented to the emergency department this afternoon for evaluation of Allergies: Coded Allergies: No Known Drug Allergies (Unverified Allergy, Unknown, 07/14/21) Home Meds Active Scripts Prednisone (Prednisone) 5 Mg Tablet, 10 MG PO DAILYBKFST for 3 Days, #3 TAB 0 Refills Prov:TANISHA TOURE DEAF/H[employer] OF HEARING SPECIALIST 08/04/25 Cyclobenzaprine HCl (Cyclobenzaprine HCl) 5 Mg Tablet, 1 TAB PO HSPRN PRN for muscle spasms, #10 TAB 0 Refills Prov:TANISHA TOURE [facility] 08/04/25 Reported Medications Tamsulosin HCl (Flomax) 0.4 Mg Cap.er.24h, 0.4 MG PO DAILY, CAPSULE. 04/20/25 Atorvastatin Calcium (Atorvastatin Calcium) 40 Mg Tablet, 40 MG PO DAILY, TAB 04/20/25 Folic Acid/Vit Bcomp,C (Renal-Jayme Tablet) 0.8 Mg Tablet, 1 TAB PO DAILY for 30 Days, #30 TAB 0 Refills 04/20/25 Past Medical History Past Medical History: Diabetes-Type II, High Cholesterol, Hypertension Additional Past Medical Hx: mullen catheter poa Surgical History: Other, LAVA Surgical History Other: RIGHT NEPHRECTOMY Family History: Negative Social History: Negative, Lives with family RN Note Reviewed/Agreed w/PFSH: Yes Review of System Dictation REVIEW OF SYSTEMS: CONSTITUTIONAL: Patient denies fevers, chills, sweats and weight changes. EYES: Patient denies any visual symptoms. EARS, NOSE, AND THROAT: No difficulties with hearing. No symptoms of rhinitis or sore throat. CARDIOVASCULAR: Patient denies chest pains, palpitations, orthopnea and paroxysmal nocturnal dyspnea. RESPIRATORY: No dyspnea on exertion, no wheezing or cough. GI: No nausea, vomiting, diarrhea, constipation, abdominal pain, hematochezia or melena. : No urinary hesitancy or dribbling. No nocturia or urinary frequency. No abnormal urethral discharge. MUSCULOSKELETAL: Reports intermittent weakness of both legs. Reports low back pain. NEUROLOGIC: No chronic headaches, no seizures. Patient denies numbness, tingling or weakness. PSYCHIATRIC: Patient denies problems with mood disturbance. No problems with anxiety. ENDOCRINE: No excessive urination or excessive thirst. DERMATOLOGIC: Patient denies any rashes or skin changes. Initial Vital Sign VS Vital Signs Date Time Temp Pulse Resp B/P (MAP) Pulse Ox O2 Delivery O2 Flow Rate FiO2 08/04/25 15:09 98.2 80 18 158/66 98 Room Air 0 Physical Exam Dictation Vital signs: Reviewed. Afebrile Constitutional: No acute distress. Non-toxic appearing. Head/Face: Normocephalic, atraumatic. Eyes: Periorbital areas with no swelling, redness, or edema. Lids and lashes are normal. Conjunctival injection is absent. Sclera anicteric. Pupils equal, round, reactive to light. ENT: Pinnas intact and no signs of trauma or erythema. Ear canals clear and no discharge. TMs no erythema. No nasal discharge or bleeding noted. Oropharynx with no exudate, redness, swelling, masses, exudates, or evidence of obstruction. Uvula midline. Mucous membranes moist. Neck: Trachea midline, no masses palpated, and no cervical lymphadenopathy. No swelling. Supple, full range of motion. Chest/Axilla: No tenderness, no crepitus, no paradoxical movement, no retractions. Cardiovascular: Regular rate, regular rhythm, no murmur, no gallops. Symmetric pulses. No peripheral edema. Respiratory: Respirations even and unlabored. Lung sounds clear; no wheezes, rales or rhonchi. Room air SpO2 98% Gastrointestinal: Inspection is normal. No distention is appreciated. Bowel sounds are normal. No mass or organomegaly . There is no tenderness. No rebound. No rigidity. No voluntary or involuntary guarding. No Houston's sign. Neurological: Normal speech, gross motor function intact, gross sensory function intact. No focal weakness/Paresthesia. Musculoskeletal/Extremities: There is diffuse tenderness to palpation over the lower lumbar paraspinal region. There was no midline step-offs or focal bony tenderness. There was no erythema, swelling, or signs of infection. Motor strength is 5/5 in bilateral lower extremities. Sensation is intact to light touch distally in both lower extremities. There was no saddle anesthesia. Gait assisted with walker is steady. Integumentary: Intact. Skin is normal color, warm and dry. Cap refill less than 3 seconds. ED Course ED Course Orders Procedure Category Date Status Time Orphenadrine Citrate PHA 08/04/25 Verified (Norflex) 16:30 Vital Signs Date Time Temp Pulse Resp B/P (MAP) Pulse Ox O2 Delivery O2 Flow Rate FiO2 08/04/25 15:09 98.2 80 18 158/66 98 Room Air 0 Vital signs are stable; afebrile with room air SpO2 100%. Alert and oriented. Patient with end-stage renal disease on dialysis presents with acute flare of chronic low back pain and neuropathy. Neurologic exam reassuring with intact strength 5/5 to all extremities and sensation and no red flag symptoms. NSAIDs and opiates avoided due to renal disease. Treated with non opiate muscle relaxant and short low-dose steroid course. Suspect lumbar degenerative di sease; advised PCP follow up for MRI and pain management. Patient stable for discharge. Medical Decision Making MDM MDM: Differential diagnosis: Lumbar spinal stenosis, degenerative disc disease, lumbar radiculopathy, peripheral neuropathy, muscle spasms Rationale: Tests considered and ordered secondary to shared decision making include: Exam Previous outside records reviewed: Old ER visits. Risk of complication and/or morbidity or mortality of patient management: None Medications-Per medication reconciliation Need for hospitalization: Patient does not meet criteria for hospitalization. Need for emergency major/minor surgery: No There are no social concerns with this patient. Prescription drug management: Flexeril, prednisone Prescriptions will include symptomatic care Patient's prior external medical records from other ER visits were reviewed by me as indicated. Prior testing and results from previous visits were reviewed. Prior tests were taken into account with medical decision making and resource utilization, independent historian/historians were used to obtain complete medical history. I independently interpreted the test that were performed, results were reviewed by me and considered findings on radiology if ordered. Medical management and examination interpretation discussions were had by me with other qualified healthcare professionals as indicated for the patient's care. DX & DISP Disposition: Discharge Departure Impression: Primary Impression: Acute on chronic low back pain Additional Impressions: Suspected spinal stenosis, Peripheral neuropathy Condition: Stable Scripts Prednisone (Prednisone) 5 Mg Tablet 10 MG PO DAILYBKFST for 3 Days, #3 TAB 0 Refills Prov: TANISHA TOURE Alyson DEAF/H[employer] OF HEARING SPECIALIST 08/04/25 Cyclobenzaprine HCl (Cyclobenzaprine HCl) 5 Mg Tablet 1 TAB PO HSPRN PRN for muscle spasms, #10 TAB 0 Refills Prov: TANISHA TOURE 08/04/25 Additional Instructions: Re-evaluated for worsening chronic back pain with intermittent leg weakness. Your neurologic exam was reassuring with strength 5/5 to both legs, sensation is intact no saddle anesthesia, and no bowel or bladder dysfunction. You were treated with Norflex IM and given prescriptions for a low-dose prednisone course and Flexeril 5 mg as needed at bedtime. No emergent red flag findings requiring immediate imaging or admission were identified. You will take Flexeril 5 mg at bedtime as needed for muscle spasms this can cause drowsiness no driving or alcohol use. You will take prednisone which is a steroid for the next three days. You will need to monitor your blood sugars. Tylenol BP also used for pain. Continue your physical therapy as already started. Use your walker at all times for stability. Avoid heavy lifting, bending, or twisting. Gentle walking is encouraged. Opioid pain medications are not safe for you because: You have end-stage renal disease which causes opioid medications to build up in your body. This increases the risk of severe sedation, confusion, breathing problem, and falls. Opiates are not effective long-term for chronic back pain and may worsen outcomes. Stay for treatment focus on muscle relaxation, inflammation control, physical therapy and identifying the cause of your pain. You will follow up with your primary care provider for pain management planning and possible referral for MRI. Continue your dialysis as scheduled. Return to the emergency department immediately if you have: New/worsening legs weakness, numbness in the groin or inner thighs, loss of bowel/bladder, inability to walk, severe/rapidly worsening pain, fever or signs of infection. Referrals: CHEYANNE JARAMILLO MD Time of Disposition: 16:12 TANISHA TOURE Aug 04, 2025 15:14
[2025-08-04 16:55] VITALS: BP 158/66; PULSE 80; RESP 18; TEMP 98.2; O2SAT 98
[2025-08-04] MEDS: ORPHENADRINE 60MG/2ML IM SCH (17:24)
== END 2025-08-04 17:52 | disposition home or self-care (01) ==
LOC: EDH 15:08
DX: G89.29 Other chronic pain (principal); M54.50 Low back pain, unspecified; G62.9 Polyneuropathy, unspecified; E11.9 Type 2 diabetes mellitus without complications; E78.00 Pure hypercholesterolemia, unspecified; I10 Essential (primary) hypertension; Z79.899 Other long term (current) drug therapy; Z90.5 Acquired absence of kidney
CPT/HCPCS: 96372; 99283; J2360

== ENCOUNTER 2025-08-04 20:45 | Emergency (ER) | payer MEDICARE, OTHER ==
[~2025-08-04] VITALS: Ht 167.6 cm; Wt 86.2 kg
[~2025-08-04 20:45] MED LIST changes: -AMOX1TAB16 PO; +CYCL5TAB3 PO; -DUTA0.5C37 PO; +FOLI0.8T43 PO; -INSU100I24 SQ; -LEVO-70 PO; +PRED5TAB PO
[2025-08-04 21:51] LABS: IMMATURE GRANULOCYTE ABSOLUTE 0.02 K/uL (0-1); NUCLEATED RED BLOOD CELLS 0.0 % (0.0-0.19); PLATELET COUNT (AUTO) 190 K/uL (130-400); RED BLOOD CELL COUNT(AUTO) 3.57 MIL/uL (4.50-6.20); RED CELL DISTRIBUTION WIDTH 13.9 % (11.0-15.5); WHITE BLOOD COUNT (AUTO) 10.5 K/uL (4.8-10.8)
[2025-08-04 21:58] LABS: CREATININE 4.0 mg/dL (0.5-1.3); GLOMERULAR FILTR. RATE CALC 16.0 mL/min (>90); GLUCOSE,RANDOM 132.0 mg/dL (70-105); SODIUM SERUM 138.0 mmol/L (136-145); UREA NITROGEN, BLOOD 28.0 mg/dL (7-18)
--- NOTE | 2025-08-04 22:11 | EKG ---
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
--- NOTE | 2025-08-04 23:44 | ERN ---
General Chief Complaint: Weakness Stated Complaint: GBW Time Seen by MD: 21:10 Time Seen by Midlevel: 21:10 Source: patient History of Present Illness Initial Comments The patient is a 59-year-old male being brought in by EMS for evaluation of generalized body weakness. Patient was seen in our emergency department several hours ago for bilateral leg pain and was discharged home after he was given a Norflex injection. Patient states he arrived at home but needed help doing his activities around the house and was unable to get around the house on his own so he decided to come back to the ER. Patient states his is currently busy with their son in [place] in his unable to be at home to take care of him. Patient states he would like to stay in the hospital since he has no help at home. Otherwise the patient has no other complaints. He has a history peripheral neuropathy. He is a dialysis patient and receives dialysis every Thursday. He is due for dialysis tomorrow. Allergies: Coded Allergies: No Known Drug Allergies (Unverified Allergy, Unknown, 07/14/21) Home Meds Active Scripts Prednisone (Prednisone) 5 Mg Tablet, 10 MG PO DAILYBKFST for 3 Days, #3 TAB 0 Refills Prov:TANISHA TOURE [facility] 08/04/25 Cyclobenzaprine HCl (Cyclobenzaprine HCl) 5 Mg Tablet, 1 TAB PO HSPRN PRN for muscle spasms, #10 TAB 0 Refills Prov:TANISHA TOURE [facility] 08/04/25 Reported Medications Tamsulosin HCl (Flomax) 0.4 Mg Cap.er.24h, 0.4 MG PO DAILY, CAPSULE. 04/20/25 Atorvastatin Calcium (Atorvastatin Calcium) 40 Mg Tablet, 40 MG PO DAILY, TAB 04/20/25 Folic Acid/Vit Bcomp,C (Renal-Jayme Tablet) 0.8 Mg Tablet, 1 TAB PO DAILY for 30 Days, #30 TAB 0 Refills 04/20/25 Past Medical History Past Medical History: Diabetes-Type II, High Cholesterol, Hypertension, Renal Disese, Renal Failure Medical History Other: mullen catheter poa, NEUROPATHY Past Surgical History: Other, LAVA Surgical History Other: RIGHT NEPHRECTOMY Family History Family History: Negative Social History Social History: Negative, Lives with family ROS Dictation CONSTITUTIONAL: Negative except for HPI HEAD/FACE: Negative except for HPI EENT: Negative except for HPI RESPIRATORY: Negative except for HPI GASTROINTESTINAL/ABDOMINAL: Negative except for HPI GENITOURINARY: Negative except for HPI MUSCULOSKELETAL: Negative except for HPI INTEGUMENTARY: Negative except for HPI NEUROLOGICAL/PSYCH: Negative except for HPI HEMATOLOGIC/LYMPHATIC: Negative except for HPI All Systems Negative, Except as noted above. 13 point review of systems assessed and all negative except for above. Physical Exam Physical Exam Dictation Vital Signs reviewed General Appearance: Alert, oriented x 3, no acute distress, well developed, nourished. Head and Face: non-traumatic. Eyes: PERRL, pink conjunctivas, eyelid no trauma, anterior chamber with arcus senilis. Ears: Pinnas intact and no signs of trauma or erythema ear canals clear and no discharge TM no erythema Nose: No discharge, no bleeding. Oropharynx: Mouth normal, tongue pink, pharynx clear,no erythema, tonsils no exudates, no abscesses noted, mucous membrane moist Neck: Supple, non-tender, no thyromegaly, no masses, no JVD, no bruits Breast:Deferred Chest:No tenderness, no crepitus, no paradoxical movement, no retractions Lungs:Clear, well-ventilated, symmetric, no rales, no wheezing, no rhonchi, no stridor, good breath sounds bilaterally Heart: Regular rate, regular rhythm, no murmur, no gallops Vascular: no peripheral edema, Abdomen: Soft, positive bowel sounds, nondistended, no guarding, nontender, no rebound, no masses no hepatomegaly, no splenomegaly, no Houston's sign, no hernias. Rectal: Deferred Genital: Deferred Neurological: Normal speech, motor function intact, sensory function intact Musculoskeletal: Neck nontender, full range of motion, back nontender, full range of motion, Extremities: nontender, full range of motion Skin: Color pink, dry, no turgor, no rash, no lacerations, no abrasions, no contusions. Lymphatic: Deferred Results Laboratory and Microbiology Lab and Micro Result Laboratory Tests Test 08/04/25 21:45 White Blood Count 10.5 K/uL (4.8-10.8) Red Blood Count 3.57 MIL/uL (4.50-6.20) L Hemoglobin 11.4 g/dL (14.0-18.0) L Hematocrit 33.8 % (42-54) L Mean Corpuscular Volume 94.7 fL (79-99) Mean Corpuscular Hemoglobin 31.9 pg (27.0-33.0) Mean Corpuscular Hemoglobin Concent 33.7 g/dL (32.0-36.0) Red Cell Distribution Width 13.9 % (11.0-15.5) Platelet Count 190 K/uL (130-400) Mean Platelet Volume 9.6 fL (7.5-10.5) Immature Granulocyte % (Auto) 0.2 % (0-1) Neutrophils (%) (Auto) 79.8 % (40.0-77.0) H Lymphocytes (%) (Auto) 12.9 % (21.0-51.0) L Monocytes (%) (Auto) 5.1 % (3.0-13.0) Eosinophils (%) (Auto) 1.3 % (0.0-8.0) Basophils (%) (Auto) 0.7 % (0.0-5.0) Neutrophils # (Auto) 8.4 K/uL (1.8-7.7) H Lymphocytes # (Auto) 1.4 K/uL (1.0-4.8) Monocytes # (Auto) 0.5 K/uL (0.1-1.0) Eosinophils # (Auto) 0.14 K/uL (0.00-0.70) Basophils # (Auto) 0.07 K/uL (0.00-0.20) Absolute Immature Granulocyte (auto 0.02 K/uL (0-1) Nucleated Red Blood Cells 0.0 % (0.0-0.19) Sodium Level 138 mmol/L (136-145) Potassium Level 4.3 mmol/L (3.5-5.1) Chloride Level 99 mmol/L (101-111) L Carbon Dioxide Level 30 mmol/L (21-32) Blood Urea Nitrogen 28 mg/dL (7-18) H Creatinine 4.0 mg/dL (0.5-1.3) H Glomerular Filtration Rate Calc 16 mL/min (>90) Random Glucose 132 mg/dL (70-105) H Total Calcium 8.9 mg/dL (8.5-10.1) Magnesium Level 2.10 mg/dL (1.80-2.40) Labs Reviewed?: Yes MDM MDM: Differential diagnosis: Peripheral neuropathy, generalized body weakness, end- stage renal disease There are no social concerns with this patient. Prescription drug management Prescriptions will include: None Medical management and examination interpretation discussions were had by me with other qualified healthcare professionals as indicated for the patient's care. ED Course Orders Procedure Category Date Status Time 12 Lead Ekg Tracing- EKG 08/04/25 Complete Technical 21:32 Cbc With Differential LAB 08/04/25 Complete 21:32 Basic Metabolic Panel LAB 08/04/25 Complete 21:32 Magnesium LAB 08/04/25 Complete 21:32 Vital Signs Date Time Temp Pulse Resp B/P (MAP) Pulse Ox O2 Delivery O2 Flow Rate FiO2 08/04/25 21:22 98.2 77 20 143/70 98 Room Air DX & DISP Disposition: Discharge Departure Impression: Primary Impression: Peripheral neuropathy Additional Impression: ESRD (end stage renal disease) on dialysis Condition: Stable Additional Instructions: Your blood work today is at baseline. You has a history for for neuropathy. You will need to follow up with your primary care doctor. You may need a caregiver at home to help you around the house. Referrals: RADHA JARAMILOL MD (PCP) I have reviewed the case, and I agree with, Diagnosis and Plan I performed the substantive portion of the visit. I have reviewed and personally made and approve the management plan that is documented in the note by myself or the FRANCISCO. I acknowledge for responsibility for the patient's management plan. CHINEDU BERMEO PAC Aug 04, 2025 23:44
[2025-08-05 02:32] VITALS: BP 142/73; PULSE 72; RESP 18; TEMP 97.8; O2SAT 98
--- NOTE | 2025-08-05 02:37 | NUR ---
DISCHARGE INSTRUCTIONS GIVEN TO PT. PT BECAME UPSET, STATES " I WANTED TO STAY HERE. IF I COULDNT YOU SHOULD HAVE TOLD ME BEFORE I GOT HERE" I EXPLAINED THAT I WAS SORRY, I WAS UNABLE TO DO THAT DUE TO NOT KNOWING HE WAS GOING TO BE COMING TO ER AND REASON WHY. PT STATES HE LIVES WITH . BUT " SHE'S BUSY" " I NEED HELP" I APOLOGIZED. ENCOURGED PT TO HAVE A CONVERSATION WITH HER AND PCP ABOUT POSSIBLE CAREGIVER/PROVIDER OR OTHER SERVICES. " OH I LOCKED MY HOUSE AND I DONT HAVE A GE" " I NEED TO STAY HERE FOR A FEW DAYS" AGAIN ENCOURAGED PT TO CALL TO UNLOCK DOOR. PT THEN STATES " WELL YOU SHOULD SENT ME HOME THREE HOURS AGO SO I COULD GET A RIDE" AGAIN I APOLOGIZED. ENCOURAGED PT TO CALL FAMILY OR FRIEND FOR RIDE. IF NOT ABLE TO , TO LET ME KNOW . PT PLACED IN WHEELCHAIR AND PULLED HIS PHONE OUT " LET ME SEE WHO TO WAKE UP"
--- NOTE | 2025-08-05 02:50 | NUR ---
ISA BLACKWELL AWARE
== END 2025-08-05 02:37 | disposition home or self-care (01) ==
LOC: EDH 20:45
DX: E11.42 Type 2 diabetes mellitus with diabetic polyneuropathy (principal); I12.0 Hypertensive chronic kidney disease with stage 5 chronic kidney disease or end stage renal disease; E11.22 Type 2 diabetes mellitus with diabetic chronic kidney disease; N18.6 End stage renal disease; E78.00 Pure hypercholesterolemia, unspecified; Z79.899 Other long term (current) drug therapy; Z90.5 Acquired absence of kidney; Z99.2 Dependence on renal dialysis
CPT/HCPCS: 36415; 80048; 83735; 85025; 93005; 96372; 99283; 99284; J2360